=== PATIENT | female | born 1975 | race Caucasian/White ===

== ENCOUNTER 2022-09-14 15:00 | Inpatient (IN) | payer OTHER ==
[~2022-09-14] VITALS: Ht 152.4 cm; Wt 104.6 kg
[2022-09-14] MEDS ORDERED: Prinivil10 MG PO (16:13)
[2022-09-14] MEDS ORDERED: Acetaminophen650 M1 PO (16:14)
[2022-09-14 17:14] LABS: BASOPHILS ABSOLUTE AUTO 0.15 K/mm3 (0.00-0.23); BASOPHILS PERCENT AUTO 1 % (0-2); EOSINOPHILS PERCENT AUTO 2 % (0-6); Hematocrit 29.1 % (33.0-51.0); Hemoglobin 9.1 g/dL (11.5-16.0); IMMATURE GRAN ABSOLUTE AUTO 0.05 K/mm3 (0.00-0.10); IMMATURE GRAN PERCENT AUTO 0 % (0-1); LYMPHOCYTES ABSOLUTE AUTO 3.03 K/mm3 (0.84-5.20); LYMPHOCYTES PERCENT AUTO 24 % (21-46); MONOCYTES ABSOLUTE AUTO 0.48 K/mm3 (0.16-1.47); MONOCYTES PERCENT AUTO 4 % (4-13); Mean Corpuscular HGB 27.7 pg (26.0-34.0); Mean Corpuscular HGB Conc 31.3 g/dL (31.5-36.5); Mean Corpuscular Volume 89 fL (80-100); Mean Platelet Volume 11.1 fL (9.1-12.4); NEUTROPHILS ABSOLUTE AUTO 8.48 K/mm3 (1.96-9.15); NEUTROPHILS PERCENT AUTO 68 % (41-73); Platelet Count 278 K/mm3 (150-400); RDW Coefficient Variation 14.1 % (11.7-14.2); RDW Standard Deviation 45.6 fL (35.1-46.3); Red Blood Cell Count 3.28 M/mm3 (3.80-5.20); White Blood Cell Count 12.49 K/mm3 (4.00-11.30)
[2022-09-14 17:29] LABS: Magnesium, Blood 1.8 mg/dL (1.6-2.4)
[2022-09-14 17:30] LABS: Albumin, Blood 3.1 g/dL (3.4-5.0); Albumin/Globulin Ratio 0.8 (0.8-1.8); Bilirubin, Total 0.1 mg/dL (0.1-1.0); Bun/Creatinine Ratio 16.7 (12.0-20.0); Calcium, Blood 8.5 mg/dL (8.5-10.1); Creatinine, Blood 4.13 mg/dL (0.40-1.00); Globulin, Blood 3.7 g/dL (2.2-4.0); Phosphorus, Blood 5.2 mg/dL (2.5-4.9); Potassium, Blood 5.8 mmol/L (3.5-5.5); Total Protein, Blood 6.8 g/dL (6.4-8.2)
[2022-09-15 05:15] LABS: BASOPHILS ABSOLUTE AUTO 0.14 K/mm3 (0.00-0.23); BASOPHILS PERCENT AUTO 1 % (0-2); EOSINOPHILS ABSOLUTE AUTO 0.52 K/mm3 (0.00-0.68); EOSINOPHILS PERCENT AUTO 4 % (0-6); Hematocrit 26.6 % (33.0-51.0); Hemoglobin 8.6 g/dL (11.5-16.0); IMMATURE GRAN ABSOLUTE AUTO 0.04 K/mm3 (0.00-0.10); IMMATURE GRAN PERCENT AUTO 0 % (0-1); LYMPHOCYTES ABSOLUTE AUTO 4.25 K/mm3 (0.84-5.20); LYMPHOCYTES PERCENT AUTO 33 % (21-46); MONOCYTES PERCENT AUTO 6 % (4-13); Mean Corpuscular HGB 28.3 pg (26.0-34.0); Mean Corpuscular HGB Conc 32.3 g/dL (31.5-36.5); Mean Corpuscular Volume 88 fL (80-100); Mean Platelet Volume 11.2 fL (9.1-12.4); NEUTROPHILS ABSOLUTE AUTO 7.13 K/mm3 (1.96-9.15); NEUTROPHILS PERCENT AUTO 56 % (41-73); Platelet Count 234 K/mm3 (150-400); RDW Standard Deviation 44.9 fL (35.1-46.3); Red Blood Cell Count 3.04 M/mm3 (3.80-5.20); White Blood Cell Count 12.78 K/mm3 (4.00-11.30)
[2022-09-15 05:39] LABS: Albumin, Blood 2.8 g/dL (3.4-5.0); Anion Gap 8 mmol/L (6-16); Blood Urea Nitrogen 78 mg/dL (8-24); Bun/Creatinine Ratio 19.5 (12.0-20.0); CO2, Blood 15 mmol/L (21-32); Calcium, Blood 8.2 mg/dL (8.5-10.1); Chloride, Blood 117 mmol/L (98-108); Glomerular Filtration Rate 13 (60-); Glucose, Blood 81 mg/dL (70-99); Magnesium, Blood 1.8 mg/dL (1.6-2.4); Phosphorus, Blood 5.8 mg/dL (2.5-4.9); Potassium, Blood 5.5 mmol/L (3.5-5.5); Sodium, Blood 140 mmol/L (136-145)
[2022-09-15 13:55] LABS: Albumin, Blood 2.8 g/dL (3.4-5.0); Anion Gap 8 mmol/L (6-16); Blood Urea Nitrogen 74 mg/dL (8-24); Bun/Creatinine Ratio 19.6 (12.0-20.0); CO2, Blood 18 mmol/L (21-32); Calcium, Blood 8.4 mg/dL (8.5-10.1); Chloride, Blood 113 mmol/L (98-108); Creatinine, Blood 3.77 mg/dL (0.40-1.00); Glomerular Filtration Rate 14 (60-); Glucose, Blood 140 mg/dL (70-99); Phosphorus, Blood 5.3 mg/dL (2.5-4.9); Potassium, Blood 4.7 mmol/L (3.5-5.5); Sodium, Blood 139 mmol/L (136-145)
[2022-09-16 05:57] LABS: BASOPHILS ABSOLUTE AUTO 0.09 K/mm3 (0.00-0.23); BASOPHILS PERCENT AUTO 1 % (0-2); EOSINOPHILS ABSOLUTE AUTO 0.43 K/mm3 (0.00-0.68); EOSINOPHILS PERCENT AUTO 4 % (0-6); Hematocrit 26.3 % (33.0-51.0); Hemoglobin 8.6 g/dL (11.5-16.0); IMMATURE GRAN ABSOLUTE AUTO 0.04 K/mm3 (0.00-0.10); IMMATURE GRAN PERCENT AUTO 0 % (0-1); LYMPHOCYTES ABSOLUTE AUTO 3.36 K/mm3 (0.84-5.20); LYMPHOCYTES PERCENT AUTO 32 % (21-46); MONOCYTES ABSOLUTE AUTO 0.55 K/mm3 (0.16-1.47); MONOCYTES PERCENT AUTO 5 % (4-13); Mean Corpuscular HGB 28.2 pg (26.0-34.0); Mean Corpuscular HGB Conc 32.7 g/dL (31.5-36.5); Mean Corpuscular Volume 86 fL (80-100); Mean Platelet Volume 11.6 fL (9.1-12.4); NEUTROPHILS ABSOLUTE AUTO 5.98 K/mm3 (1.96-9.15); NEUTROPHILS PERCENT AUTO 57 % (41-73); Platelet Count 227 K/mm3 (150-400); RDW Coefficient Variation 13.6 % (11.7-14.2); Red Blood Cell Count 3.05 M/mm3 (3.80-5.20); White Blood Cell Count 10.45 K/mm3 (4.00-11.30)
[2022-09-16 06:20] LABS: Albumin, Blood 2.8 g/dL (3.4-5.0); Anion Gap 7 mmol/L (6-16); Blood Urea Nitrogen 77 mg/dL (8-24); Bun/Creatinine Ratio 21.4 (12.0-20.0); CO2, Blood 17 mmol/L (21-32); Calcium, Blood 8.1 mg/dL (8.5-10.1); Chloride, Blood 113 mmol/L (98-108); Creatinine, Blood 3.59 mg/dL (0.40-1.00); Glomerular Filtration Rate 15 (60-); Glucose, Blood 92 mg/dL (70-99); Phosphorus, Blood 5.8 mg/dL (2.5-4.9); Potassium, Blood 4.8 mmol/L (3.5-5.5); Sodium, Blood 137 mmol/L (136-145)
[2022-09-17 05:37] LABS: Albumin, Blood 2.8 g/dL (3.4-5.0); Anion Gap 10 mmol/L (6-16); Blood Urea Nitrogen 72 mg/dL (8-24); Bun/Creatinine Ratio 20.5 (12.0-20.0); CO2, Blood 18 mmol/L (21-32); Calcium, Blood 8.1 mg/dL (8.5-10.1); Chloride, Blood 108 mmol/L (98-108); Creatinine, Blood 3.52 mg/dL (0.40-1.00); Glomerular Filtration Rate 15 (60-); Glucose, Blood 88 mg/dL (70-99); Phosphorus, Blood 5.2 mg/dL (2.5-4.9); Potassium, Blood 4.6 mmol/L (3.5-5.5); Sodium, Blood 136 mmol/L (136-145)
[2022-09-17] MEDS ORDERED: ADALAT CC90 M1 PO (08:57)
[2022-09-17] MEDS ORDERED: LEVSOD75 PO (08:59)
[2022-09-17] MEDS ORDERED: BANATROL PLUS PO (09:01)
== END 2022-09-17 14:56 | disposition home or self-care (01) | DRG 684 ==
LOC: MEDS 15:00
PROVIDERS: ADMIT Family Medicine
DX: N17.9 Acute kidney failure, unspecified (principal); D72.829 Elevated white blood cell count, unspecified; R94.6 Abnormal results of thyroid function studies; E66.9 Obesity, unspecified; M54.9 Dorsalgia, unspecified; G89.29 Other chronic pain; E03.9 Hypothyroidism, unspecified; K58.0 Irritable bowel syndrome with diarrhea; D50.9 Iron deficiency anemia, unspecified; I12.9 Hypertensive chronic kidney disease with stage 1 through stage 4 chronic kidney disease, or unspecified chronic kidney disease; N18.9 Chronic kidney disease, unspecified; D63.1 Anemia in chronic kidney disease; Z88.8 Allergy status to other drugs, medicaments and biological substances; Z79.899 Other long term (current) drug therapy; Z79.811 Long term (current) use of aromatase inhibitors
CPT/HCPCS: 36415; 76770; 80053; 80069; 83735; 83880; 84100; 85025; A9270; J0360; J1644; J2916; J3475; J7050

== ENCOUNTER → 2022-09-18 | Outpatient (CLI) | payer OTHER ==
[~2022-09-18] MED LIST: ADALAT CC90 M1 PO; Acetaminophen650 M1 PO; BANATROL PLUS PO; LEVSOD75 PO; Prinivil10 MG PO
== END | disposition home or self-care (01) ==
LOC: LAB SHORT 16:00 → LAB 16:00
DX: N39.0 Urinary tract infection, site not specified (principal)
CPT/HCPCS: 87086

== ENCOUNTER → 2022-09-22 | Outpatient (CLI) | payer OTHER ==
[2022-09-23 18:10] LABS: HPV 16 Negative (Negative); HPV 18 Negative (Negative); HPV OTHER HR TYPES Negative (Negative)
== END | disposition home or self-care (01) ==
LOC: LAB 09:59 → LAB SHORT 09:59
PROVIDERS: Advanced Practice Midwife
DX: Z01.419 Encounter for gynecological examination (general) (routine) without abnormal findings (principal)
CPT/HCPCS: 87624; G0123

== ENCOUNTER 2022-09-23 13:55 | Inpatient (IN) | payer OTHER ==
[~2022-09-23] VITALS: Ht 152.4 cm; Wt 113.3 kg
--- NOTE | 2022-09-23 23:12 | NUR ---
ADMISSION: PT ARRIVED TO U 10 @2146. ABLE TO AMBULATE FROM [facility] TO HOSPITAL BED IND. ALERT AND ORIENTED X4, ABLE TO FOLLOW COMMANDS AND MAKE NEEDS KNOWN. BP STABLE, HR SR 90'S, NO COMPLAINTS OF CP/PRESSURE AT THIS TIME. SATING >95% ON RA, RESPIRATIONS EVEN AND UNLABORED, AFEBRILE. PULSE STRONG AND EQUAL. POTASSIUM OF 6.0. CALL PLACED TO , NEW ORDERS RECIEVED. PT ORIENTED TO ROOM AND CALL LIGHT SYSTEM, BED IN LOW, CALL LIGHT IN REACH. WILL CONTINUE TO MONITOR.
--- NOTE | 2022-09-24 04:01 | NUR ---
SHIFT SUMMARY: PT REMAINS ALERT AND ORIENTED X4, BP AND HR STABLE, AFEBRILE, SATTING >95% ON RA, RESPIRATIONS EVEN AND UNLABORED. PT IND TO BATHROOM, NO BM THIS SHIFT. SODIUM BICARB GTT IN L AC. NO ACUTE CHANGES OVERNIGHT. BED IN LOW, CALL LIGHT IN REACH, WILL REPORT TO ONCOMING RN.
[2022-09-24 04:32] LABS: Hematocrit 24.7 % (33.0-51.0)
[2022-09-24 05:00] LABS: Albumin, Blood 2.7 g/dL (3.4-5.0); Anion Gap 10 mmol/L (6-16); Blood Urea Nitrogen 83 mg/dL (8-24); Bun/Creatinine Ratio 23.4 (12.0-20.0); CO2, Blood 21 mmol/L (21-32); Calcium, Blood 8.8 mg/dL (8.5-10.1); Chloride, Blood 113 mmol/L (98-108); Creatinine, Blood 3.54 mg/dL (0.40-1.00); Glomerular Filtration Rate 15 (60-); Glucose, Blood 106 mg/dL (70-99); Magnesium, Blood 1.7 mg/dL (1.6-2.4); Phosphorus, Blood 6.4 mg/dL (2.5-4.9); Potassium, Blood 4.9 mmol/L (3.5-5.5); Sodium, Blood 144 mmol/L (136-145)
--- NOTE | 2022-09-24 07:57 | NUR ---
DR COREA CALLED ABOUT ORDERING PT'S HOME MEDICATIONS
--- NOTE | 2022-09-24 17:27 | NUR ---
PT A/O X4. RESTING WELL IN BED, INDEPENDANT TO BATHROOM. VSS. BICARB INFUSING AT 50ML/HR PER V/O FROM DR AVENDANO. NÉSTOR. PT DENIES SOB AND CP. ANSWERING QUESTIONS APPRORPRIATELY IN FULL SENTENCES. WILL CONTINUE TO OBESERVE FOR CHANGES OR NEEDS. NO FURTHER CHANGES TO DISCUSS FOR HTIS SHIFT. HOME MEDIATIONS ARE ORDERED
--- NOTE | 2022-09-25 04:10 | NUR ---
SHIFT SUMMARY: PT REMAINS ALERT AND ORIENTED X4, ABLE TO FOLLOW COMMANDS AND MAKE NEEDS KNOWN. BP STABLE, HR SR 80'S, AFEBRILE, ON RA SATURATIONS >95%, RESPIRATIONS EVEN AND UNLABORED. PULSES EQUAL AND STRONG THROUGHOUT. BICARB INFUSING @50ML/HR. PT IND IN ROOM, ABLE TO AMBULATE TO AND FROM BATHROOM. PT COMPLAINED OF HEADACHE AT START OF SHIFT, MEDICATED WITH TYLENOL PER EMAR. PT AMBULATED AROUND UNIT, VITAL SIGNS REMAINED STABLE. PT ABLE TO SLEEP ON AND OFF. CALLS APPROPRIATELY. BED IN LOW, CALL LIGHT IN REACH, WILL REPORT TO ONCOMING RN.
[2022-09-25 04:11] LABS: Albumin, Blood 2.8 g/dL (3.4-5.0); Anion Gap 7 mmol/L (6-16); Blood Urea Nitrogen 71 mg/dL (8-24); Bun/Creatinine Ratio 19.5 (12.0-20.0); CO2, Blood 25 mmol/L (21-32); Chloride, Blood 108 mmol/L (98-108); Creatinine, Blood 3.64 mg/dL (0.40-1.00); Glomerular Filtration Rate 15 (60-); Glucose, Blood 89 mg/dL (70-99); Magnesium, Blood 1.6 mg/dL (1.6-2.4); Phosphorus, Blood 5.4 mg/dL (2.5-4.9); Sodium, Blood 140 mmol/L (136-145)
--- NOTE | 2022-09-25 17:26 | NUR ---
PT HAS BEEN INDEPENDANT IN ROOM T/O THE DAY. PT HAD SHOWER THIS AFTERNOON. VSS. NADN. NS INFUSING AT 75ML/HR. DENIES SOB AND CP. PLAN IS TO POSSIBLY BEGIN DIALYSIS PRIOR TO DISCHARGE HOME, PT IS AWARE OF THIS. FAMILY HAS BEEN IN TO SEE PT DURING THE DAY. NO FURHTER CHANGES TO DISCUSS
[2022-09-26 04:12] LABS: Hematocrit 24.7 % (33.0-51.0); Hemoglobin 7.9 g/dL (11.5-16.0)
[2022-09-26 04:29] LABS: Albumin, Blood 2.8 g/dL (3.4-5.0); Anion Gap 6 mmol/L (6-16); Blood Urea Nitrogen 67 mg/dL (8-24); Bun/Creatinine Ratio 18.7 (12.0-20.0); CO2, Blood 24 mmol/L (21-32); Calcium, Blood 8.1 mg/dL (8.5-10.1); Chloride, Blood 109 mmol/L (98-108); Creatinine, Blood 3.59 mg/dL (0.40-1.00); Glomerular Filtration Rate 15 (60-); Glucose, Blood 118 mg/dL (70-99); Magnesium, Blood 1.6 mg/dL (1.6-2.4); Phosphorus, Blood 5.5 mg/dL (2.5-4.9); Potassium, Blood 5.1 mmol/L (3.5-5.5); Sodium, Blood 139 mmol/L (136-145)
--- NOTE | 2022-09-26 05:10 | NUR ---
SHIFT SUMMARY NO ACUTE CHANGES TO REPORT OVERNIGHT, PLAN OF CARE REMAINS THE SAME. SHE REMAINS INDEPENDENT IN THE ROOM. DENIES PAIN AND HAS NO COMPLAINTS. IVF INFUSING, VITALS STABLE. PT A/OX4, CALL LIGHT WITHIN REACH.
--- NOTE | 2022-09-26 17:47 | NUR ---
PT REMAINS A/O X4. INDEPENDANT IN THE ROOM TO BATHROOM. VSS. DENIES CP ANS SOB. VSS. PLAN TO OBSERVE OVER NIGHT AND DR AVENDANO REASSESS IN THE AM. NS CONTINUES TO INFUSE AT 75ML/HR. THERE ARE NO ADDITIONAL CHANGES DURING THIS SHIFT TO NOTE
[2022-09-27 04:42] LABS: Hematocrit 22.1 % (33.0-51.0); Hemoglobin 7.3 g/dL (11.5-16.0)
[2022-09-27 04:57] LABS: Albumin, Blood 2.6 g/dL (3.4-5.0); Anion Gap 6 mmol/L (6-16); Blood Urea Nitrogen 58 mg/dL (8-24); Bun/Creatinine Ratio 16.2 (12.0-20.0); CO2, Blood 22 mmol/L (21-32); Chloride, Blood 111 mmol/L (98-108); Creatinine, Blood 3.58 mg/dL (0.40-1.00); Glomerular Filtration Rate 15 (60-); Glucose, Blood 129 mg/dL (70-99); Magnesium, Blood 1.5 mg/dL (1.6-2.4); Phosphorus, Blood 5.2 mg/dL (2.5-4.9); Sodium, Blood 139 mmol/L (136-145)
--- NOTE | 2022-09-27 06:32 | NUR ---
SHIFT SUMMARY: A&OX4. DENIES ANY SOB OR CHEST PAIN. O2 SATS > 92% ON RA. HR SR/ST IN 90-100'S. FLUIDS INFUSING ORDERED. PT UP INDEPENDTLY IN ROOM. VOIDING LARGE AMOUNST OF CLEAR, YELLOW URINE. NO ACUTE CHANGES THROUGHOUT SHIFT.
--- NOTE | 2022-09-27 19:01 | NUR ---
Shift Summary Pt alert, oriented X4; calm and cooprerative with care. Pt resting in bed, up ind in room. Pt reports dental pain, medicated X1 with tylenol. Pt denies chest pain, sob, nausea, dizziness and numb/tingling t/o shift. Tele sinus 80's, bp stable. Spo2 >90% on ra t/o shift, breathing even and unlabored. Other vss. no other acute changes noted. Will continue to monitor until report given to oncoming rn.
--- NOTE | 2022-09-28 05:02 | NUR ---
SHIFT SUMMARY: NO ACUTE CHANGES TO PT CONDITION DURING THIS SHIFT.
[2022-09-28 05:07] LABS: Hematocrit 23.9 % (33.0-51.0); Hemoglobin 7.7 g/dL (11.5-16.0)
[2022-09-28 05:24] LABS: Albumin, Blood 2.8 g/dL (3.4-5.0); Anion Gap 8 mmol/L (6-16); Blood Urea Nitrogen 54 mg/dL (8-24); Bun/Creatinine Ratio 14.7 (12.0-20.0); CO2, Blood 19 mmol/L (21-32); Calcium, Blood 8.5 mg/dL (8.5-10.1); Chloride, Blood 113 mmol/L (98-108); Creatinine, Blood 3.67 mg/dL (0.40-1.00); Glomerular Filtration Rate 15 (60-); Glucose, Blood 83 mg/dL (70-99); Magnesium, Blood 1.8 mg/dL (1.6-2.4); Phosphorus, Blood 5.8 mg/dL (2.5-4.9); Potassium, Blood 5.6 mmol/L (3.5-5.5); Sodium, Blood 140 mmol/L (136-145)
--- NOTE | 2022-09-28 06:00 | NUR ---
DR. AVENDANO INFORMED OF PT'S POTASSIUM THIS A.MAdriane RECEIVED ORDER FOR [facility].
--- NOTE | 2022-09-28 17:52 | NUR ---
SHIFT SUMMARY: PT CONTINUES A&Ox4, COOPERATIVE W/CARE, USES CALL LIGHT APPROPRIATELY. PT DENIES SOB, CP T/OUT DAY. O2 SATS >92% ON RA. SR/ST ON MONITOR, RATE 90s-LOW 100s. PT MEDICATED x1 FOR C/O ORAL PAIN. PT IND IN ROOM, SHOWERS TODAY W/OUT INCIDENT. PT REPORTS FREQUENT LOOSE STOOLS, BENEFIT OF BANANA FLAKES EXPLAINED, PT AGREEABLE TO ADMINISTRATION THIS AM, REPORTS IMPROVEMENT T/OUT SHIFT. SODIUM BICARB INFUSION INITIATED PER ORDERS. AT THIS TIME, PT RESTING QUIETLY IN ROOM WITH CALL LIGHT IN REACH. WILL CONTINUE TO MONITOR AND TREAT ACCORDINGLY UNTIL CHANGE OF SHIFT.
--- NOTE | 2022-09-28 22:21 | NUR ---
ASSUMED PT CARE FORM MAO REYNA ON . PT IS A&OX4. PT ON RA WITH SATS AT 99%. DENIES ANY SOB. HR IS SR/ST IN THE 90-100'S. AMBULATIGN IN ROOM WITHOUT DIFFICUTLY. VOIDING CLEAR, YELLOW URINE IN HAT. FLUIDS IN FUSING PER ORDERS. CALL LIGHTIN REACH.
--- NOTE | 2022-09-28 22:36 | NUR ---
REPORT CALL TO RN FOR ROOM 340.
--- NOTE | 2022-09-28 22:59 | NUR ---
REPORT CALLED TO RN ON MEDICAL FLOOR DIANA ALCANTAR.
--- NOTE | 2022-09-29 04:47 | NUR ---
SUMMARY: PATIENT TRANSFERRED FROM PCU 10 THIS EVENING. NO ACUTE EVENTS. BICARD DRIP RUNNING. PATIENT AOX4. INDEPENDENT IN ROOM. MIRNA APPLIED TO SOME REDNESS IN HER GROIN FOLDS. 2 NURSE SKIN CHECK COMPLETE WITH MARIBELL ORTIZ.
[2022-09-29 07:19] LABS: Hematocrit 22.2 % (33.0-51.0); Hemoglobin 7.2 g/dL (11.5-16.0)
[2022-09-29 07:57] LABS: Albumin, Blood 2.7 g/dL (3.4-5.0); Anion Gap 6 mmol/L (6-16); Blood Urea Nitrogen 53 mg/dL (8-24); CO2, Blood 22 mmol/L (21-32); Calcium, Blood 8.5 mg/dL (8.5-10.1); Chloride, Blood 111 mmol/L (98-108); Creatinine, Blood 3.79 mg/dL (0.40-1.00); Glomerular Filtration Rate 14 (60-); Glucose, Blood 86 mg/dL (70-99); Magnesium, Blood 1.7 mg/dL (1.6-2.4); Phosphorus, Blood 5.7 mg/dL (2.5-4.9); Potassium, Blood 5.1 mmol/L (3.5-5.5); Sodium, Blood 139 mmol/L (136-145)
[2022-09-29] MEDS ORDERED: BUME2 PO (11:27)
[2022-09-29] MEDS ORDERED: LOKELMA10 GM PO (11:29)
[2022-09-29] MEDS ORDERED: SODBIC650 PO (11:29)
--- NOTE | 2022-09-29 13:08 | NUR ---
DISCHARGE SUMMARY DISCHARGE, MEDICATION, AND FOLLOWUP INSTRUCTIONS GIVEN TO PT. PT VOICED COMPLETE UNDERSTANDING AND HAS NO QUESTIONS AT THIS TIME. TELE MONITOR REMOOVED. IV IN PLACE, PT STATES RIDE MAY NOT ARRIVE FOR A FEW HOURS. WILL REMOVE PRIOR TO D/C.
== END 2022-09-29 13:36 | disposition home or self-care (01) | DRG 641 ==
LOC: ER 13:55 → PCU 13:56 → ERHOLD 13:56 → PCU 21:46 → MEDS 09-28 22:50
PROVIDERS: Internal Medicine Nephrology; ADMIT Internal Medicine
DX: E87.5 Hyperkalemia (principal); I12.0 Hypertensive chronic kidney disease with stage 5 chronic kidney disease or end stage renal disease; N17.9 Acute kidney failure, unspecified; N18.5 Chronic kidney disease, stage 5; D63.1 Anemia in chronic kidney disease; E11.22 Type 2 diabetes mellitus with diabetic chronic kidney disease; E03.9 Hypothyroidism, unspecified; M10.9 Gout, unspecified; F17.210 Nicotine dependence, cigarettes, uncomplicated; E86.9 Volume depletion, unspecified; E87.20 Acidosis, unspecified; E88.09 Other disorders of plasma-protein metabolism, not elsewhere classified; E83.39 Other disorders of phosphorus metabolism; D50.9 Iron deficiency anemia, unspecified; E87.70 Fluid overload, unspecified; Z88.8 Allergy status to other drugs, medicaments and biological substances; Z79.811 Long term (current) use of aromatase inhibitors; Z79.899 Other long term (current) drug therapy
CPT/HCPCS: 36415; 80069; 83735; 84132; 85014; 85018; 93005; 93010; 96365; 96366; 96367; 96372; 99284-25; A9270; G0378; J0610; J0881; J1644; J7030; J7070

== ENCOUNTER → 2022-10-05 | Outpatient (CLI) | payer OTHER ==
[~2022-10-05] MED LIST changes: +BUME2 PO; +LOKELMA10 GM PO; +SODBIC650 PO
[2022-10-05 14:10] LABS: Creatinine Urine 25.8 mg/dL (27.00-270.00); Protein, Urine Quantitative 177.8 mg/dL (0.0-11.9)
== END | disposition home or self-care (01) ==
LOC: LAB 06:45 → LAB SHORT 06:45
PROVIDERS: Internal Medicine Nephrology
DX: N18.5 Chronic kidney disease, stage 5 (principal); D63.1 Anemia in chronic kidney disease; N25.81 Secondary hyperparathyroidism of renal origin; E55.9 Vitamin D deficiency, unspecified; E78.00 Pure hypercholesterolemia, unspecified; R76.9 Abnormal immunological finding in serum, unspecified; R94.5 Abnormal results of liver function studies; R94.6 Abnormal results of thyroid function studies
CPT/HCPCS: 81050; 82043; 82108; 82570; 84156

== ENCOUNTER → 2022-10-13 | Outpatient (CLI) | payer OTHER ==
[~2022-10-13] MED LIST changes: +HYDR1TAB94 PO; +METO50ER PO; +OXAYDO5 M2 PO; +XARELTO20 MG PO; +[UNRECOGNIZED DRUG - OTHER]
== END ==
LOC: LAB 11:45 → LAB SHORT 11:45
DX: Z11.1 Encounter for screening for respiratory tuberculosis (principal)
CPT/HCPCS: 87015; 87116; 87206

== ENCOUNTER 2022-10-14 07:06 | Day surgery (SDC) | payer OTHER ==
[~2022-10-14 07:06] MED LIST changes: -HYDR1TAB94 PO; -OXAYDO5 M2 PO; -XARELTO20 MG PO; -[UNRECOGNIZED DRUG - OTHER]
[2022-10-14] MEDS ORDERED: [UNRECOGNIZED DRUG - OTHER] (07:29)
--- NOTE | 2022-10-14 09:42 | NUR ---
PT VERBALIZES UNDERSTANDING WRITTEN AND VERBAL INSTRUCTIONS. DENIES QUESITONS OR CONCERNS. IV DC'D. CATH INTACT. PRESSURE DSG APPLIED. NO BLEEDING NOTED. VSS. DR AVENDANO AND [facility] TO GET AHOLD OF PATIENT TO CONTINUE CARE.
== END 2022-10-14 10:00 | disposition home or self-care (01) ==
LOC: MHTC 07:06
DX: I12.0 Hypertensive chronic kidney disease with stage 5 chronic kidney disease or end stage renal disease (principal); N18.6 End stage renal disease; E11.22 Type 2 diabetes mellitus with diabetic chronic kidney disease; M10.9 Gout, unspecified; F17.200 Nicotine dependence, unspecified, uncomplicated
CPT/HCPCS: 76937; 99152; 99153; C1750; C1769; J1644; J2250; J3010; J7040

== ENCOUNTER 2022-11-01 03:32 | Emergency (ER) | payer OTHER ==
[~2022-11-01] VITALS: Ht 152.4 cm; Wt 105.2 kg
[~2022-11-01 03:32] MED LIST changes: +[UNRECOGNIZED DRUG - OTHER]
[2022-11-01 04:05] LABS: BASOPHILS ABSOLUTE AUTO 0.11 K/mm3 (0.00-0.23); BASOPHILS PERCENT AUTO 1 % (0-2); EOSINOPHILS ABSOLUTE AUTO 0.54 K/mm3 (0.00-0.68); EOSINOPHILS PERCENT AUTO 5 % (0-6); Hematocrit 25.3 % (33.0-51.0); Hemoglobin 8.2 g/dL (11.5-16.0); IMMATURE GRAN ABSOLUTE AUTO 0.08 K/mm3 (0.00-0.10); IMMATURE GRAN PERCENT AUTO 1 % (0-1); LYMPHOCYTES ABSOLUTE AUTO 2.58 K/mm3 (0.84-5.20); LYMPHOCYTES PERCENT AUTO 23 % (21-46); MONOCYTES ABSOLUTE AUTO 0.94 K/mm3 (0.16-1.47); MONOCYTES PERCENT AUTO 8 % (4-13); Mean Corpuscular HGB 28.1 pg (26.0-34.0); Mean Corpuscular HGB Conc 32.4 g/dL (31.5-36.5); Mean Corpuscular Volume 87 fL (80-100); Mean Platelet Volume 11.5 fL (9.1-12.4); NEUTROPHILS ABSOLUTE AUTO 7.18 K/mm3 (1.96-9.15); NEUTROPHILS PERCENT AUTO 63 % (41-73); Platelet Count 242 K/mm3 (150-400); RDW Coefficient Variation 12.7 % (11.7-14.2); Red Blood Cell Count 2.92 M/mm3 (3.80-5.20); White Blood Cell Count 11.43 K/mm3 (4.00-11.30)
[2022-11-01 04:23] LABS: Albumin, Blood 2.9 g/dL (3.4-5.0); Albumin/Globulin Ratio 0.8 (0.8-1.8); Bilirubin, Total 0.2 mg/dL (0.1-1.0); Bun/Creatinine Ratio 8.1 (12.0-20.0); Calcium, Blood 8.5 mg/dL (8.5-10.1); Creatinine, Blood 5.65 mg/dL (0.40-1.00); Globulin, Blood 3.5 g/dL (2.2-4.0); Potassium, Blood 3.5 mmol/L (3.5-5.5); Total Protein, Blood 6.4 g/dL (6.4-8.2)
[2022-11-01 04:29] LABS: International Normalized Ratio 1.09; Prothrombin Time Results 11.4 Sec (9.7-11.5)
[2022-11-01] MEDS ORDERED: OXAYDO5 M2 PO (09:45)
== END 2022-11-01 10:10 | disposition home or self-care (01) ==
LOC: ER 03:32
PROVIDERS: Student in an Organized Health Care Education/Training Program
DX: I82.621 Acute embolism and thrombosis of deep veins of right upper extremity (principal); E11.9 Type 2 diabetes mellitus without complications; I10 Essential (primary) hypertension; E03.9 Hypothyroidism, unspecified; F17.200 Nicotine dependence, unspecified, uncomplicated; Z88.8 Allergy status to other drugs, medicaments and biological substances; Z79.890 Hormone replacement therapy; Z79.899 Other long term (current) drug therapy
CPT/HCPCS: 71045; 71260; 80053; 85025; 85610; 85730; A9270; J1650; Q9967

== ENCOUNTER 2022-11-04 06:59 | Day surgery (SDC) | payer OTHER ==
[~2022-11-04] VITALS: Ht 152.4 cm; Wt 106.6 kg
[~2022-11-04 06:59] MED LIST changes: +OXAYDO5 M2 PO
[2022-11-04] MEDS ORDERED: HYDR1TAB94 PO (07:25)
--- NOTE | 2022-11-04 11:35 | NUR ---
1215 PATIENT RETURNED FROM THE CATHLAB WITH FLOWSTASIS TO THE RIGHT BRACHIAL VEIN AND THE RIGHT FEMORAL VEIN. MANUAL PRESSURE BEING HELD TO THE RIGHT FEMORAL VEIN BY MINOR PARRA AT THE TIME OF ARRIVAL. SBAR RECEIVED FROM MARIBELL ATWOOD AT THE BEDSIDE. PATIENT PLACED ON THE MONITOR. ROOM AIR SAT 98% AND WILL CONTINUE TO MONITOR. COMPLAIN OF RIGHT ARM PAIN. ARM ASSESSED AND PLACED UP ON A PILLOW AND PAIN SEEMD TO BE MORE TOLERABLE. CONTINUED TO MONITOR. CALL LIGHT IN REACH. HOB FLAT, BED IN REVERSE TRENDELENBERG.
[2022-11-04] MEDS ORDERED: XARELTO20 MG PO (11:39)
--- NOTE | 2022-11-04 11:47 | NUR ---
FAXED XARELTO SCRIPT TO [facility] DIRECTED BY THE PATEINT.
--- NOTE | 2022-11-04 13:25 | NUR ---
1300 FLOWSTASIS REMOVED FROM THE RIGHT BRACHIAL VEIN AND MANUAL PRESSURE HELD FOR 15 MINUTES WITH A ASHER PAD. BLEEDING STOPPED AND DRESSING APLIED. THEN RIGHT GROIN FLOWSTASIS REMOVED AND MANUAL PRESSURE HELD FOR 10 MINUTES AND DRESSING APPLIED. HEMOSTASIS TO BOTH SITES.
--- NOTE | 2022-11-04 13:39 | NUR ---
5572 FIFTEEN MINUTES SPENT ON THE PHONE WITH [facility] PHARMACIST REGARDING XARELTO SCRIPT. PATIENT UNABLE TO AFFORD EXPENSIVE SCRIPT. TRYING TO ENSURE IF INSURANCE IS GOING TO COVER HER SCRIPT.
--- NOTE | 2022-11-04 13:55 | NUR ---
PATIENT UP OOB AND OFF MONITOR. PIV REMOVED AND CATH TIP INTACT. PRESSURE DRESING APPLIED. PATIENT DRESSING SELF. GATHERED ALL BELONINGS AND WILL CALL RIDE IN A FEW MINUTES. RIGHT GROIN SITE AND RIGHT BRACHIAL SITES CDI. NO BLEEDING, NO HEMATOMA NOTED.
--- NOTE | 2022-11-04 14:31 | NUR ---
1402 PATIENT CALLED RN INTO THE RESTROOM AND BLEEDING NOTED FROM ASHKAN RIGHT GROIN VENOUS SITE. PATIENT QUICKLY ESCORTED BACK TO THE BED. CLOTHES OFF AND MANUAL PRESSURE HELD TO THE RIGHT GROIN SITE. OLD DRESSSING REMOVED, SOAKED THROUGH THE SITE AND AFTER 15 MINUTES NEW DRESSING APPLIED. BLANKETS AND HEATER APPLIED TO THE PATIENT.
--- NOTE | 2022-11-04 15:00 | NUR ---
1500 NO BLEEDING NOTED FROM THE RIGHT GROIN. ATTEMPTED TO GET OOB AGAIN AND DRESS. PLANN TO DISCHARGE STRAIGHT TO DIALYSIS FOR TREATMENT.
--- NOTE | 2022-11-04 15:10 | NUR ---
PHARMACY CALLED BACK AND WILL COVER THE XARELTO WITHOUT A COPAY. 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
--- NOTE | 2022-11-04 15:32 | NUR ---
REVIEWED DISCAHRGE INSTRUCTIONS WITH THE PATIENT AND SHE VERBALIZED ALL INSTRUCTIONS WITH THE RN. SIGNED COPIES AND HAS ORIGINAL INSTRUCTIONS WITH HER. SHE IS DISCHARGING WITH SMALL ARMS REPAIRER TO [facility] FOR DIALYSIS TODAY.
== END 2022-11-04 16:00 | disposition home or self-care (01) ==
LOC: MHTC 06:59
DX: T82.9XXA Unspecified complication of cardiac and vascular prosthetic device, implant and graft, initial encounter (principal); D64.9 Anemia, unspecified; E11.22 Type 2 diabetes mellitus with diabetic chronic kidney disease; I12.0 Hypertensive chronic kidney disease with stage 5 chronic kidney disease or end stage renal disease; N18.6 End stage renal disease; M54.2 Cervicalgia; X58.XXXA Exposure to other specified factors, initial encounter
CPT/HCPCS: 36904; 36907; 76937; 99152; 99153; C1725; C1757; C1769; C1887; C1894; J1644; J2250; J3010; J7030; J7040; Q9967

== ENCOUNTER → 2022-11-12 | Outpatient (CLI) | payer OTHER ==
[~2022-11-12] MED LIST changes: +HYDR1TAB94 PO; +XARELTO20 MG PO
[2022-11-12 13:07] LABS: Protein, Urine Quantitative 625.7 mg/dL (0.0-11.9)
== END | disposition home or self-care (01) ==
LOC: LAB 07:30 → LAB SHORT 07:30
PROVIDERS: Internal Medicine Nephrology
DX: N18.5 Chronic kidney disease, stage 5 (principal); D63.1 Anemia in chronic kidney disease; N25.81 Secondary hyperparathyroidism of renal origin; E55.9 Vitamin D deficiency, unspecified; E78.00 Pure hypercholesterolemia, unspecified; R76.9 Abnormal immunological finding in serum, unspecified; R94.5 Abnormal results of liver function studies; R94.6 Abnormal results of thyroid function studies
CPT/HCPCS: 81050; 82043; 82570; 84156

== ENCOUNTER 2022-11-27 15:05 | Emergency (ER) | payer OTHER ==
[~2022-11-27] VITALS: Ht 152.4 cm; Wt 106.6 kg
[2022-11-27 15:56] LABS: BASOPHILS PERCENT AUTO 1 % (0-2); EOSINOPHILS ABSOLUTE AUTO 0.13 K/mm3 (0.00-0.68); EOSINOPHILS PERCENT AUTO 1 % (0-6); Hematocrit 28.2 % (33.0-51.0); Hemoglobin 9.3 g/dL (11.5-16.0); IMMATURE GRAN ABSOLUTE AUTO 0.09 K/mm3 (0.00-0.10); IMMATURE GRAN PERCENT AUTO 1 % (0-1); LYMPHOCYTES ABSOLUTE AUTO 2.02 K/mm3 (0.84-5.20); LYMPHOCYTES PERCENT AUTO 19 % (21-46); MONOCYTES ABSOLUTE AUTO 1.08 K/mm3 (0.16-1.47); MONOCYTES PERCENT AUTO 10 % (4-13); Mean Corpuscular HGB 29.7 pg (26.0-34.0); Mean Corpuscular Volume 90 fL (80-100); Mean Platelet Volume 10.8 fL (9.1-12.4); NEUTROPHILS PERCENT AUTO 69 % (41-73); Platelet Count 263 K/mm3 (150-400); RDW Coefficient Variation 15.9 % (11.7-14.2); RDW Standard Deviation 51.8 fL (35.1-46.3); Red Blood Cell Count 3.13 M/mm3 (3.80-5.20); White Blood Cell Count 10.92 K/mm3 (4.00-11.30)
[2022-11-27 16:12] LABS: Albumin, Blood 3.2 g/dL (3.4-5.0); Albumin/Globulin Ratio 0.8 (0.8-1.8); Bilirubin, Total 0.3 mg/dL (0.1-1.0); Bun/Creatinine Ratio 9.5 (12.0-20.0); Calcium, Blood 8.8 mg/dL (8.5-10.1); Creatinine, Blood 2.83 mg/dL (0.40-1.00); Potassium, Blood 3.2 mmol/L (3.5-5.5); Total Protein, Blood 7.2 g/dL (6.4-8.2)
== END 2022-11-27 19:43 | disposition home or self-care (01) ==
LOC: ER 15:05
PROVIDERS: Emergency Medicine
DX: R55 Syncope and collapse (principal); F17.290 Nicotine dependence, other tobacco product, uncomplicated; Z88.8 Allergy status to other drugs, medicaments and biological substances; Z79.890 Hormone replacement therapy; Z79.02 Long term (current) use of antithrombotics/antiplatelets
CPT/HCPCS: 36415; 70450; 80053; 83880; 84484; 85025; A9270

== ENCOUNTER 2023-02-20 02:30 | Inpatient (IN) | payer MEDICARE, OTHER ==
[2023-02-20] VITALS (22 sets, daily range): BP systolic 81–989; BP diastolic 38–74
[~2023-02-20] VITALS: Ht 152.4 cm; Wt 113.5 kg
[2023-02-20 03:44] LABS: Hematocrit 29.9 % (33.0-51.0); Hemoglobin 9.7 g/dL (11.5-16.0); Mean Corpuscular HGB 29.1 pg (26.0-34.0); Mean Corpuscular HGB Conc 32.4 g/dL (31.5-36.5); Mean Corpuscular Volume 90 fL (80-100); Platelet Count 81 K/mm3 (150-400); RDW Coefficient Variation 13.7 % (11.7-14.2); RDW Standard Deviation 44.8 fL (35.1-46.3); Red Blood Cell Count 3.33 M/mm3 (3.80-5.20); White Blood Cell Count 6.14 K/mm3 (4.00-11.30)
[2023-02-20 03:51] LABS: Mean Platelet Volume 13.3 fL (9.1-12.4)
[2023-02-20 04:03] LABS: Albumin, Blood 2.7 g/dL (3.4-5.0); Albumin/Globulin Ratio 0.6 (0.8-1.8); Bilirubin, Total 0.5 mg/dL (0.1-1.0); Bun/Creatinine Ratio 7.6 (12.0-20.0); Calcium, Blood 9.3 mg/dL (8.5-10.1); Creatinine, Blood 9.19 mg/dL (0.40-1.00); Globulin, Blood 4.7 g/dL (2.2-4.0); Potassium, Blood 3.7 mmol/L (3.5-5.5); Total Protein, Blood 7.4 g/dL (6.4-8.2)
[2023-02-20 04:18] LABS: BAND PERCENT MAN 15 % (0-8); BASOPHILS PERCENT MAN 0 % (0-2); EOSINOPHILS PERCENT MAN 0 % (0-6); LYMPHOCYTES ABSOLUTE MAN 0.42 K/mm3 (0.84-5.20); LYMPHOCYTES PERCENT MAN 7 % (21-46); MONOCYTES ABSOLUTE MAN 0.06 K/mm3 (0.16-1.47); MONOCYTES PERCENT MAN 1 % (4-13); NEUTROPHILS ABSOLUTE MAN 5.64 K/mm3 (1.96-9.15); SEG NEUTROPHILS PERCENT MAN 77 % (41-73); TOTAL CELLS COUNTED 100
[2023-02-20 05:03] LABS: Influenza A, PCR NEGATIVE (NEGATIVE); Influenza B, PCR NEGATIVE (NEGATIVE); Resp Syncytial Virus, PCR NEGATIVE (NEGATIVE); SARS-Cov-2 (COVID-19) PCR, MMC NEGATIVE (NEGATIVE)
[2023-02-20 05:35] LABS: Source, Urine Straight Cath
[2023-02-20 05:46] LABS: Appearance, Urine Clear (Clear); Bilirubin, Urine Neg (Neg); Blood, Urine 4+ (Neg); Color, Urine Yellow (P-Yellow); Glucose Qualitative, Urine 3+ (Neg); Ketones, Urine Neg (Neg); Leukocyte Esterase, Urine Neg (Neg); Nitrite, Urine Neg (Neg); Protein, Urine 4+ (Neg); Specific Gravity, Urine 1.005 (1.003-1.022); Urobilinogen, Urine NORM (Normal)
[2023-02-20 05:55] LABS: Amorphous Light (0-Heavy); Bacteria Few /hpf; Squamous Epithelial Cells Few /hpf (Few); White Blood Cells, Urine 0-2 /hpf (0-5)
[2023-02-20] MEDS ORDERED: MIDO5 PO (14:13)
[2023-02-20] MEDS ORDERED: Cyclobenzaprine5 MG PO (14:14)
[2023-02-20] MEDS ORDERED: ELIQUIS5 M2 PO (14:15)
[2023-02-20] MEDS ORDERED: ALLO100 PO (14:15)
[2023-02-20] MEDS ORDERED: SODBIC650 PO (14:16)
[2023-02-20] MEDS ORDERED: AURYXIA210 MG PO (14:17)
[2023-02-20] MEDS ORDERED: Calcium Acetat667 MG PO (14:18)
[2023-02-20] MEDS ORDERED: CALCIUM ACETAT667 MG PO (14:19)
[2023-02-20] MEDS ORDERED: THERA-D2000 UNIT PO (14:20)
--- NOTE | 2023-02-20 16:45 | NUR ---
LATE ENTRY/ER ADMIT 0900: 0845:RECEIVED REPORT FROM FIBER MACHINE TENDER. 0900:RECEIVED PT FROM ER VIA GURNEY, PLACED IN BED, MADE COMFORTABLE, ORIENTED TO ROOM & UNIT ROUTINE. PT A&O X 4, IS PLEASANT & COOPERATIVE. VSS UPON ADMIT. PIV IN L AC, INTACT & PATENT. DIALYSIS CATHETER IN R UPPER CHEST, DRSNG C/D/I. SKIN CHECK DONE WITH 2nd RN. BOTTOM IS REDDENED & EXCORIATED FROM PT STATING SHE HAS BEEN HAVING FREQ WATERY DIARRHEA. USING BARRIER CREAM & POWDER WITH EACH CLEAN UP & CHANGE. AWARE, ORDERS RECEIVED TO SEND A GI PANEL WITH NEXT BM. DOPE FIRER NOTIFIED OF PT'S ADMISSION TO HOSP, IS A FREQ DIALYSIS PT. PT WILL LIKELY HAVE DIALYSIS TODAY.
--- NOTE | 2023-02-20 20:07 | NUR ---
SHIFT SUMMARY PT HAS RESTED COMFORTABLY SINCE ER ADMIT. VSS. DIALYSIS IN THIS AFTERNOON TO DO DIALYSIS. PT HAS BEEN PLEASANT & COOPERATIVE WITH ALL CARE. PT HAS BEEN HAVING LOOSE WATERY STOOLS, ORDERED GI PANEL. AWAITING ANOTHER STOOL TO SEND SPECIMEN. APPETITE IS MARGINAL. BLOOD SUGARS COVERED PER EMAR. PLAN IS LIKELY HOME UPON DC.
--- NOTE | 2023-02-20 21:00 | NUR ---
Pt had low bp at start of treatment. I notified the bedside RN and inititated tx per protocol. Pt recieved approx 2 hours of tx when I got a bp reading that was much lower than previous readings and concerned me. We were taking the bp on her forearm negro to discomfort and inaccurate readings. I adjuste dthe cuff and retook the bp without much difference. I notified the bedside RN who came in and helped adjust the bp cuff. The next reading was imporved. It was not long before another low reading. I turned the UF rate off so as to not pull anymore fluids. I gave her a 100ml saline bolous and retook her bp. With another low reading I notifed the bedside RN ronald who at the time was a little distracted with shift change. I then went back tto the pt side to check on them and she stated she was now feeling short of breath. I got the vitals machine so that I could get an SpO2 reading and it initialy said 55%. I let the nurse know and asked for a nasal canula to deliver o2 tot he pt. I retook and reajusted the finger probe and got a reading of 80%. The day nurs kristi dn night nurse were now in the room and it became clear that they intended to call a rapid response. I disconnected the pt to return their blood so that the machines would not be as in the way during the chaos. As the blood was returnning I started to notice the saline bag fill with blood. I immediatedly shut off the blood pump so that it would not continue and I notified the room of the concern and potential blood loss. The pt doctor was notifed. Once pt was stable she was transported to the ICU on vassopressors. transported to ICU on vassopressors. the bp on her forearm due to inacurate readings and discomfort
--- NOTE | 2023-02-20 21:00 | NUR ---
ASSUMED CARE PT IS A&O X4; COOPERATIVE. SPO2 >92% ON 3L NC, MAP >65 ON DOPAMINE, HR IN THE 100'S. PT HAS C/O OF PAIN "EVERYWHERE" AND CP W/ INSPIRATION. NO C/O OF SOB, OR NAUSEA.
[2023-02-20 22:00] LABS: Hematocrit 25.2 % (33.0-51.0); Hemoglobin 8.1 g/dL (11.5-16.0); Mean Corpuscular HGB Conc 32.1 g/dL (31.5-36.5); Mean Corpuscular Volume 90 fL (80-100); Platelet Count 58 K/mm3 (150-400); RDW Coefficient Variation 13.6 % (11.7-14.2); RDW Standard Deviation 45.5 fL (35.1-46.3); Red Blood Cell Count 2.79 M/mm3 (3.80-5.20); White Blood Cell Count 6.64 K/mm3 (4.00-11.30)
[2023-02-20 22:07] LABS: Mean Platelet Volume 13.9 fL (9.1-12.4)
[2023-02-20 22:20] LABS: BAND PERCENT MAN 10 % (0-8); BASOPHILS ABSOLUTE MAN 0.06 K/mm3 (0.00-0.23); BASOPHILS PERCENT MAN 1 % (0-2); EOSINOPHILS PERCENT MAN 0 % (0-6); LYMPHOCYTES ABSOLUTE MAN 0.73 K/mm3 (0.84-5.20); LYMPHOCYTES PERCENT MAN 11 % (21-46); MONOCYTES ABSOLUTE MAN 0.66 K/mm3 (0.16-1.47); MONOCYTES PERCENT MAN 10 % (4-13); NEUTROPHILS ABSOLUTE MAN 5.17 K/mm3 (1.96-9.15); SEG NEUTROPHILS PERCENT MAN 68 % (41-73); TOTAL CELLS COUNTED 100
[2023-02-21] VITALS (81 sets, daily range): BP systolic 80–167; BP diastolic 32–110
--- NOTE | 2023-02-21 00:26 | NUR ---
BUPDATE DR AVENDANO IN TO SEE PT W/ ORDERS FOR AM ECHOCARDIOGRAM/CORTISOL TEST, IN ADDITION TO MIDODRINE AND HYPERTENSIVE MEDICATION PARAMETERS.
[2023-02-21 03:42] LABS: Hematocrit 21.9 % (33.0-51.0); Mean Corpuscular HGB 28.5 pg (26.0-34.0); Mean Corpuscular Volume 89 fL (80-100); Mean Platelet Volume 12.8 fL (9.1-12.4); Platelet Count 57 K/mm3 (150-400); RDW Coefficient Variation 13.7 % (11.7-14.2); RDW Standard Deviation 45.1 fL (35.1-46.3); Red Blood Cell Count 2.46 M/mm3 (3.80-5.20); White Blood Cell Count 5.61 K/mm3 (4.00-11.30)
[2023-02-21 03:59] LABS: Albumin, Blood 2.3 g/dL (3.4-5.0); Albumin/Globulin Ratio 0.6 (0.8-1.8); Bilirubin, Total 0.4 mg/dL (0.1-1.0); Bun/Creatinine Ratio 7.9 (12.0-20.0); Calcium, Blood 8.5 mg/dL (8.5-10.1); Creatinine, Blood 6.46 mg/dL (0.40-1.00); Globulin, Blood 3.7 g/dL (2.2-4.0); Magnesium, Blood 1.8 mg/dL (1.6-2.4); Phosphorus, Blood 2.8 mg/dL (2.5-4.9); Potassium, Blood 3.4 mmol/L (3.5-5.5)
[2023-02-21 04:02] LABS: BAND PERCENT MAN 6 % (0-8); BASOPHILS PERCENT MAN 0 % (0-2); EOSINOPHILS PERCENT MAN 0 % (0-6); LYMPHOCYTES % ATYPICAL MANUAL 1 % (0-0); LYMPHOCYTES ABSOLUTE MAN 0.67 K/mm3 (0.84-5.20); LYMPHOCYTES PERCENT MAN 11 % (21-46); MONOCYTES ABSOLUTE MAN 0.33 K/mm3 (0.16-1.47); MONOCYTES PERCENT MAN 6 % (4-13); SEG NEUTROPHILS PERCENT MAN 76 % (41-73); TOTAL CELLS COUNTED 100
--- NOTE | 2023-02-21 05:43 | NUR ---
SHIFT SUMMARY PT IS RESTING QUIETLY. NO C/O OF CHANGE IN PAIN REPORTED IN PREVIOUS NOTES. CURRENTLY ON RA. NO C/O OF SOB OR NAUSEA. TKO, DOPAMINE OFF. SBP IN THE 110'S. SINUS RHYTHM. SPO2 >92%. NO EVENTS SINCE ASSUMPTION OF CARE NOTE.
[2023-02-21 12:09] LABS: Hematocrit 22.3 % (33.0-51.0); Hemoglobin 7.3 g/dL (11.5-16.0)
--- NOTE | 2023-02-21 17:08 | NUR ---
CULTURE SET OBTAINED FROM DIALYSIS CVC PER ORDERS GIVEN. ART PORT UNABLE TO ASPIRATE FULLY. TERRIE PORT FLOWS BRISKLY. AFTER SAMPLE OBTAINED, BOTH PORT FLUSHED BRISKLY WITH NS AND THEN RE-ANTCOAGULATED WITH 10/999 UNIT HEPARIN PER LUMEN VOLUME. DRESSING CHANGE PERFORMED. EXIT SITE RED AND SORE TO TOUCH. CLEANED WITH CHLOROPREP / ALCOHOL PREP SWAB. TEGADERM DRESSING APPLIED. HEATING REPAIR TECHNICIAN INFORMED OF FINDIGS. SURGICAL SALES REPRESENTATIVE CARRIED TO LAB.
--- NOTE | 2023-02-21 17:18 | NUR ---
SHIFT SUMMARY PT CONTINUES TO REST IN BED. PT ANSWERS QUESTIONS APPROPRIATELY AND FOLLOWS COMMANDS. HR 70-80'S, BP STABLE. PT RECEIVES HD AND HAS OLIGURIA. PT COMPLAINS OF GENERALIZED PAIN, MEDICATED PER EMAR. NS INFUSING KVO. BLOOD CULTURES DRAN FROM [facility] BY DIALYSIS NURSE WILIAM. NO ACUTE CHANGES THIS SHIFT. WILL CONTINUE TO MONITOR AND GIVE REPORT TO ONCOMING RN.
--- NOTE | 2023-02-21 21:46 | NUR ---
ASSUMPTION OF CARE/ ASSESSMENT: ASSUMED CARE OF PT AT 1900. PT IS A&O X 4 AND USES CALL LIGHT APPROPRIATELY TO COMMUNCATE NEEDS. PT HAS C/O GENERALIZED PAIN ALL OVER HER BODY. PT ON NC @ 3LPM; LUNG SOUNDS CLEAR WITH DIM BASES BILATERALLY. SR ON MONITOR WITH HR 80-90, SBP 130'S. PT HAS OBESE, SOFT, NON-TENDER ABD; TOLERATING PO INTAKE AND DRINKS WATER/EATS MEALS INDEPENDENTLY. PT OBSERVED TO BE VERY WEAK AND IS NOT REALLY HELPING TO REPOSITION HERSELF IN BED; WHEN PROMTED TO MOVE LEGS PT STATES THAT SHE COULD NOT AND NEED STAFF TO HELP WITH ALL REPOSITIONING. PT C/O DISCOMFORT IN BED AND THIS RN AND ANOTHER RN WERE ABLE TO MOVE PT TO RECLINER USING THE LIFT AND PT IS MORE COMFORTABLE BEING ABLE TO SIT UPRIGHT WITH LEGS DOWN. PT EATING DINNER TRAY NOW IN RECLINER. PPP X 4; SKIN INTACT AND WARM, EXCORATION ON BOTTOM AND IN SKIN FOLDS. BED LOWERED, CALL LIGHT IN REACH, WILL CONTINUE TO MONITOR.
[2023-02-22] VITALS (17 sets, daily range): BP systolic 88–149; BP diastolic 53–78
[2023-02-22 04:29] LABS: BASOPHILS ABSOLUTE AUTO 0.02 K/mm3 (0.00-0.23); BASOPHILS PERCENT AUTO 0 % (0-2); EOSINOPHILS ABSOLUTE AUTO 0.05 K/mm3 (0.00-0.68); EOSINOPHILS PERCENT AUTO 1 % (0-6); Hematocrit 22.7 % (33.0-51.0); Hemoglobin 7.4 g/dL (11.5-16.0); IMMATURE GRAN ABSOLUTE AUTO 0.25 K/mm3 (0.00-0.10); IMMATURE GRAN PERCENT AUTO 3 % (0-1); LYMPHOCYTES ABSOLUTE AUTO 1.64 K/mm3 (0.84-5.20); LYMPHOCYTES PERCENT AUTO 18 % (21-46); MONOCYTES ABSOLUTE AUTO 0.73 K/mm3 (0.16-1.47); MONOCYTES PERCENT AUTO 8 % (4-13); Mean Corpuscular HGB 29.2 pg (26.0-34.0); Mean Corpuscular HGB Conc 32.6 g/dL (31.5-36.5); Mean Corpuscular Volume 90 fL (80-100); NEUTROPHILS ABSOLUTE AUTO 6.54 K/mm3 (1.96-9.15); NEUTROPHILS PERCENT AUTO 71 % (41-73); Platelet Count 61 K/mm3 (150-400); RDW Coefficient Variation 13.7 % (11.7-14.2); RDW Standard Deviation 45.1 fL (35.1-46.3); Red Blood Cell Count 2.53 M/mm3 (3.80-5.20); White Blood Cell Count 9.23 K/mm3 (4.00-11.30)
[2023-02-22 04:33] LABS: Mean Platelet Volume 14.3 fL (9.1-12.4)
[2023-02-22 04:47] LABS: Albumin/Globulin Ratio 0.5 (0.8-1.8); Bilirubin, Total 0.4 mg/dL (0.1-1.0); Bun/Creatinine Ratio 8.4 (12.0-20.0); Calcium, Blood 9.1 mg/dL (8.5-10.1); Creatinine, Blood 7.93 mg/dL (0.40-1.00); Globulin, Blood 3.9 g/dL (2.2-4.0); Phosphorus, Blood 2.6 mg/dL (2.5-4.9); Potassium, Blood 3.5 mmol/L (3.5-5.5); Total Protein, Blood 5.9 g/dL (6.4-8.2)
--- NOTE | 2023-02-22 06:39 | NUR ---
SHIFT SUMMARY: NO ACUTE CHANGES THROUGHOUT THE NIGHT. PT WAS ABLE TO SLEEP FOR THE MAJORITY OF THE NIGHT. PT CONTINUES TO CALL OUT IN PAIN AND CONTINUOUSLY STATES "OW" THROUGHOUT THE NIGHT. PT EXPRESSES LOTS OF PAIN WITH ANY BODY MOVEMENT; PT MEDICATED PER EMAR. PT HAD NO BM THIS SHIFT; STOOL STAMPLE STILL NEEDS TO BE COLLECTED. VSS THROUGHOUT THE NIGHT. BED LOWERED, CALL LIGHT IN REACH, WILL CONTINUE TO MONITOR UNTIL ONCOMING RN ARRIVES.
--- NOTE | 2023-02-22 07:40 | NUR ---
ASSUMED CARE OF PATIENT.
--- NOTE | 2023-02-22 08:32 | NUR ---
PATIENT TO DIALYSIS AT 0820.
--- NOTE | 2023-02-22 11:33 | NUR ---
PROVIDER PHONE CALL: Dr. Castrejon called and notified of positive blood cultures. Telephone order to consult general surgery to D/C permacath after dialysis today and replace in [address] Espino called and updated on plan.
--- NOTE | 2023-02-22 12:20 | NUR ---
PT BACK FROM DIALYSIS
--- NOTE | 2023-02-22 18:00 | NUR ---
SURGEON AT BEDSIDE: Dr Frias at bedside to remove permacath
--- NOTE | 2023-02-22 18:34 | NUR ---
END OF SHIFT SUMNARY: NEURO: A&OX4. EXTREMITIES WEAK THROUGHOUT. RESP: PATIENT IS ON 2L NC. CARDIO: PATIENT HAS BEEN IN A NORMAL SINUS RHYTHYM 80-90S : NO URINARY OUTPUT TODAY. PT STATES OLIGURIA IS NORMAL. 3L OFF IN DIALYSIS GI: NO BM SKIN: DRESSING WAS PALCED ON COCCYX. SEE SKIN ASSESSMENT. IVS: PG LIZBET, 20G IV LAC. BOTH LINES PATENT AND FLUSHING.
[2023-02-23] VITALS (10 sets, daily range): BP systolic 139–161; BP diastolic 60–74
[2023-02-23 03:26] LABS: BASOPHILS ABSOLUTE AUTO 0.04 K/mm3 (0.00-0.23); BASOPHILS PERCENT AUTO 0 % (0-2); EOSINOPHILS ABSOLUTE AUTO 0.08 K/mm3 (0.00-0.68); EOSINOPHILS PERCENT AUTO 1 % (0-6); Hematocrit 21.4 % (33.0-51.0); Hemoglobin 6.9 g/dL (11.5-16.0); IMMATURE GRAN ABSOLUTE AUTO 0.16 K/mm3 (0.00-0.10); IMMATURE GRAN PERCENT AUTO 2 % (0-1); LYMPHOCYTES ABSOLUTE AUTO 1.87 K/mm3 (0.84-5.20); LYMPHOCYTES PERCENT AUTO 20 % (21-46); MONOCYTES ABSOLUTE AUTO 0.74 K/mm3 (0.16-1.47); MONOCYTES PERCENT AUTO 8 % (4-13); Mean Corpuscular HGB 28.6 pg (26.0-34.0); Mean Corpuscular HGB Conc 32.2 g/dL (31.5-36.5); Mean Corpuscular Volume 89 fL (80-100); NEUTROPHILS ABSOLUTE AUTO 6.48 K/mm3 (1.96-9.15); NEUTROPHILS PERCENT AUTO 69 % (41-73); Platelet Count 92 K/mm3 (150-400); RDW Coefficient Variation 13.9 % (11.7-14.2); RDW Standard Deviation 45.1 fL (35.1-46.3); Red Blood Cell Count 2.41 M/mm3 (3.80-5.20); White Blood Cell Count 9.37 K/mm3 (4.00-11.30)
[2023-02-23 03:29] LABS: Mean Platelet Volume 13.2 fL (9.1-12.4)
[2023-02-23 03:57] LABS: Albumin, Blood 2.3 g/dL (3.4-5.0); Albumin/Globulin Ratio 0.6 (0.8-1.8); Bilirubin, Total 0.6 mg/dL (0.1-1.0); Bun/Creatinine Ratio 7.3 (12.0-20.0); Calcium, Blood 8.4 mg/dL (8.5-10.1); Creatinine, Blood 5.18 mg/dL (0.40-1.00); Globulin, Blood 3.7 g/dL (2.2-4.0); Phosphorus, Blood 1.2 mg/dL (2.5-4.9); Potassium, Blood 3.5 mmol/L (3.5-5.5)
--- NOTE | 2023-02-23 05:04 | NUR ---
PATIENT AOX4, FOLLOWS COMMANDS. ABLE TO MOVE ALL EXTREMETIES BUT NEEDS TO BE ENCOURAGED TO DO SO SHE WILL LAY STILL TO AVOID PAIN. PRN FLEXERIL AND FENTANYL GIVEN OVERNIGHT. SR WITH STABLE BP. 2L NC. DID NOT VOID OVERNIGHT.
--- NOTE | 2023-02-23 08:00 | NUR ---
INITIAL ASSESSMENT PATIENT ALERT AND ORIENTED X 4, AFEBRILE. PATIENT CALM, BUT DOES GET IRRITATED AT TIMES. PATIENT WEAK BUT ABLE TO MOVE ALL EXTREMITIES. PATIENT STATES SHE USES WALKER AT HOME. PATIENT ON 2 L NC TO KEEP SATS 90% AND GREATER. LUNGS CLEAR IN UPPER LOBES AND DIMINISHED IN LOWER LOBES. PATIENT IN SR, HR 70S TO 80S. SBP IN THE 150S. PATIENT HAS POOR APPETITE. LAST BM NOTED ON 02/20. PATIENT OLIGURIC; DIALYSIS PATIENT. REDDENED GROIN AND BREAST FOLDS NOTED. EXCORIATION TO COCCYX AND GLUTEAL CLEFT. BED LOW, CALL LIGHT IN REACH. WILL CONTINUE TO MONITOR PATIENT FREQUENTLY THROUGHOUT SHIFT.
[2023-02-23 10:51] LABS: Vancomycin, Random 20.5 ug/mL
--- NOTE | 2023-02-23 12:10 | NUR ---
PATIENT AFEBRILE. HR IN THE 80S. SBP IN THE 130S. BLOOD SUGAR OF 318; COVERAGE ADMINISTERED. NO OTHER ACUTE CHANGES TO NOTE ON AT THIS TIME. WILL CONTINUE TO MONITOR.
--- NOTE | 2023-02-23 16:42 | NUR ---
Pt.is awake in her bed when she welcomed my visit. Pt. is cautiously pleasant. Pt. displays evidence of having concerns over the difficulty of het PT/OT. Listen with empathy and a calming presence and seek to normlaize the Pt. experience. Pt. displays evidence of agreement, understanding and awareness. Prayed with Pt. Pt. verbalized gratitude and welcomed this production supervisor off shift to return tomorrow.
--- NOTE | 2023-02-23 19:08 | NUR ---
SHIFT SUMMARY PATIENT REMAINED ALERT AND ORIENTED X 4, AFEBRILE. PRN FLEXERIL AND FENTANYL GIVEN FOR COMPLAINTS OF "ALL OVER" PAIN. PATIENT WORKED WITH PT AND OT. PATIENT PAINFUL WITH MOVEMENT AND WEAK. PATIENT REMAINED ON 2 L NC TO KEEP SATS 90% AND GREATER. PATIENT REMAINED IN SR, HR 70S TO 80S. SBP 130S TO 150S. POOR APPETITE. BLOOD SUGARS 182 TO 318. NO BM THIS SHIFT. NO URINE OUTPUT THIS SHIFT. NO CHANGES TO SKIN NOTED. PATIENT RECEIVED 1 UNIT RBCS. REFUSED BEDBATH. REPORT GIVEN TO ASSUMING NURSE.
[2023-02-24 02:56] VITALS: BP 155/67
[2023-02-24 06:27] LABS: BASOPHILS ABSOLUTE AUTO 0.06 K/mm3 (0.00-0.23); BASOPHILS PERCENT AUTO 1 % (0-2); EOSINOPHILS ABSOLUTE AUTO 0.15 K/mm3 (0.00-0.68); EOSINOPHILS PERCENT AUTO 1 % (0-6); Hematocrit 23.3 % (33.0-51.0); Hemoglobin 7.8 g/dL (11.5-16.0); IMMATURE GRAN ABSOLUTE AUTO 0.64 K/mm3 (0.00-0.10); IMMATURE GRAN PERCENT AUTO 5 % (0-1); LYMPHOCYTES ABSOLUTE AUTO 2.46 K/mm3 (0.84-5.20); LYMPHOCYTES PERCENT AUTO 19 % (21-46); MONOCYTES ABSOLUTE AUTO 0.98 K/mm3 (0.16-1.47); MONOCYTES PERCENT AUTO 8 % (4-13); Mean Corpuscular HGB Conc 33.5 g/dL (31.5-36.5); Mean Corpuscular Volume 87 fL (80-100); Mean Platelet Volume 12.5 fL (9.1-12.4); NEUTROPHILS ABSOLUTE AUTO 8.83 K/mm3 (1.96-9.15); NEUTROPHILS PERCENT AUTO 67 % (41-73); Platelet Count 126 K/mm3 (150-400); RDW Coefficient Variation 14.6 % (11.7-14.2); RDW Standard Deviation 46.4 fL (35.1-46.3); Red Blood Cell Count 2.69 M/mm3 (3.80-5.20); White Blood Cell Count 13.12 K/mm3 (4.00-11.30)
[2023-02-24 06:37] LABS: Albumin, Blood 2.1 g/dL (3.4-5.0); Albumin/Globulin Ratio 0.5 (0.8-1.8); Bilirubin, Total 0.6 mg/dL (0.1-1.0); Bun/Creatinine Ratio 8.6 (12.0-20.0); Calcium, Blood 8.6 mg/dL (8.5-10.1); Creatinine, Blood 6.54 mg/dL (0.40-1.00); Globulin, Blood 4.1 g/dL (2.2-4.0); Potassium, Blood 3.4 mmol/L (3.5-5.5); Total Protein, Blood 6.2 g/dL (6.4-8.2)
[2023-02-24 07:53] VITALS: BP 131/109
[2023-02-24 10:52] LABS: Vancomycin, Random 19.4 ug/mL
--- NOTE | 2023-02-24 12:08 | NUR ---
[facility] CATH CALLED DR QUIROZ TO CLARIFY PLAN FOR [facility]MA CATH. HE DECLINED PLACEMENT D/T BLOOD CULTURE RESULTS. CALLED DR BELLAMY REALTED INFORMATION. CONTINUE POC.
[2023-02-24 19:37] VITALS: BP 174/69
[2023-02-25 05:34] VITALS: BP 142/107
[2023-02-25 07:31] VITALS: BP 154/97
[2023-02-25 08:13] LABS: Hematocrit 25.5 % (33.0-51.0); Hemoglobin 8.7 g/dL (11.5-16.0)
[2023-02-25 08:29] LABS: Albumin, Blood 2.2 g/dL (3.4-5.0); Anion Gap 15 mmol/L (6-16); Blood Urea Nitrogen 70 mg/dL (8-24); Bun/Creatinine Ratio 8.9 (12.0-20.0); CO2, Blood 23 mmol/L (21-32); Calcium, Blood 9.5 mg/dL (8.5-10.1); Chloride, Blood 89 mmol/L (98-108); Creatinine, Blood 7.83 mg/dL (0.40-1.00); Glomerular Filtration Rate 6 (60-); Glucose, Blood 219 mg/dL (70-99); Magnesium, Blood 2.1 mg/dL (1.6-2.4); Phosphorus, Blood 3.3 mg/dL (2.5-4.9); Potassium, Blood 3.6 mmol/L (3.5-5.5); Sodium, Blood 127 mmol/L (136-145)
[2023-02-25 20:31] VITALS: BP 171/81
[2023-02-26 02:19] VITALS: BP 177/92
[2023-02-26 05:52] LABS: BASOPHILS ABSOLUTE AUTO 0.05 K/mm3 (0.00-0.23); BASOPHILS PERCENT AUTO 0 % (0-2); EOSINOPHILS ABSOLUTE AUTO 0.13 K/mm3 (0.00-0.68); EOSINOPHILS PERCENT AUTO 1 % (0-6); Hematocrit 23.3 % (33.0-51.0); Hemoglobin 7.9 g/dL (11.5-16.0); IMMATURE GRAN ABSOLUTE AUTO 0.78 K/mm3 (0.00-0.10); IMMATURE GRAN PERCENT AUTO 6 % (0-1); LYMPHOCYTES ABSOLUTE AUTO 2.19 K/mm3 (0.84-5.20); LYMPHOCYTES PERCENT AUTO 16 % (21-46); MONOCYTES ABSOLUTE AUTO 0.75 K/mm3 (0.16-1.47); MONOCYTES PERCENT AUTO 6 % (4-13); Mean Corpuscular HGB 29.2 pg (26.0-34.0); Mean Corpuscular HGB Conc 33.9 g/dL (31.5-36.5); Mean Corpuscular Volume 86 fL (80-100); Mean Platelet Volume 11.8 fL (9.1-12.4); NEUTROPHILS PERCENT AUTO 71 % (41-73); Platelet Count 218 K/mm3 (150-400); RDW Coefficient Variation 14.2 % (11.7-14.2); RDW Standard Deviation 44.2 fL (35.1-46.3); Red Blood Cell Count 2.71 M/mm3 (3.80-5.20)
[2023-02-26 06:25] LABS: Magnesium, Blood 2.2 mg/dL (1.6-2.4)
[2023-02-26 06:39] LABS: Alanine Aminotransfer (ALT/SGP 20 U/L (12-78); Albumin, Blood 2.1 g/dL (3.4-5.0); Albumin/Globulin Ratio 0.4 (0.8-1.8); Alk Phos 277 U/L (50-136); Anion Gap 15 mmol/L (6-16); Aspartate Aminotrans (AST/SGOT 14 U/L (12-37); Bilirubin, Total 0.4 mg/dL (0.1-1.0); Blood Urea Nitrogen 80 mg/dL (8-24); Bun/Creatinine Ratio 9.4 (12.0-20.0); CO2, Blood 24 mmol/L (21-32); Calcium, Blood 9.2 mg/dL (8.5-10.1); Chloride, Blood 84 mmol/L (98-108); Creatinine, Blood 8.47 mg/dL (0.40-1.00); Globulin, Blood 4.8 g/dL (2.2-4.0); Glomerular Filtration Rate 5 (60-); Glucose, Blood 260 mg/dL (70-99); Phosphorus, Blood 3.9 mg/dL (2.5-4.9); Potassium, Blood 3.8 mmol/L (3.5-5.5); Sodium, Blood 123 mmol/L (136-145); Total Protein, Blood 6.9 g/dL (6.4-8.2)
[2023-02-26 06:40] LABS: C-Reactive Protein, High Sens. >190.000 mg/L (0.000-3.000)
[2023-02-26 07:48] VITALS: BP 179/89
[2023-02-26 10:41] LABS: Vancomycin, Random 15.3 ug/mL
--- NOTE | 2023-02-26 11:24 | NUR ---
ANTONIO COORDINATING WITH ICU AND DR EDWARDS FOR LINE PLACMENT. PHARMACY CONFIRMED TO GIVE VANCOMYCIN BEFORE PLANNED DIALYSIS RUN. CONTINUE POC.
--- NOTE | 2023-02-26 12:21 | NUR ---
ROMY BARRAZA NOTIFIED BY MARIA T REYNA THE DR EDWARDS AND DR OCAMPO HAVE DECIDED TO DELAY THE PLACMEENT D/T BLOOD CULTURES. ASKED THAT DR EDWARDS CALL DR AVENDANO TO RELAY THAT INFORMATION. CALLED DR OCAMPO TO TALK WITH PT. CONTINUE POC.
[2023-02-26 15:03] VITALS: BP 186/93
[2023-02-26 19:19] VITALS: BP 154/69
[2023-02-27 05:23] VITALS: BP 175/89
--- NOTE | 2023-02-27 05:37 | NUR ---
SHIFT SUMMARY PT LAYING IN BED DURING BEDSIDE REPORT- PT REPORTED PAIN STARTING TO INCREASE AND REQUESTED PAIN MEDICINE WITH HS MEDICATIONS- MEDICATED PT X2 T/O NIGHT FOR 05/27 GENERAL PAIN- PT AMBULATED TO BR A COUPLE TIMES T/O NIGHT AND LOW URINE OUTPUT- PT STATED, "MY URINE FEELS REALLY THICK WITH I PEE"- URINE LIGHT YELLOW APPEARS TO HAVE SEDIMENT- PT USED CALL LIGHT APPROPRIATE T/O NIGHT- PT ON STRICT 1000ML FLUID RESTRICTION- PT COMPLIENT WITH FLUID RESTRICTION, BED LOW POSITION, CALL LIGHT WITHIN REACH
[2023-02-27 06:34] LABS: Hematocrit 22.6 % (33.0-51.0); Hemoglobin 7.7 g/dL (11.5-16.0)
[2023-02-27 07:01] LABS: Magnesium, Blood 2.4 mg/dL (1.6-2.4)
[2023-02-27 07:18] LABS: Anion Gap 13 mmol/L (6-16); Blood Urea Nitrogen 91 mg/dL (8-24); Bun/Creatinine Ratio 9.7 (12.0-20.0); CO2, Blood 25 mmol/L (21-32); Calcium, Blood 8.7 mg/dL (8.5-10.1); Chloride, Blood 85 mmol/L (98-108); Glomerular Filtration Rate 5 (60-); Glucose, Blood 111 mg/dL (70-99); Phosphorus, Blood 5.4 mg/dL (2.5-4.9); Potassium, Blood 4.2 mmol/L (3.5-5.5); Sodium, Blood 123 mmol/L (136-145)
[2023-02-27 07:43] VITALS: BP 175/82
[2023-02-27 09:57] VITALS: BP 181/88
[2023-02-27 16:35] VITALS: BP 180/99
[2023-02-27 16:39] VITALS: BP 182/90
--- NOTE | 2023-02-27 17:35 | NUR ---
SHIFT SUMMARY PT A&OX4 AND IN PLEASENT MOOD T/O SHIFT. PT C/O HEARTBURN-REPORTED TO PLAN TO MEDICATE PER EMAR. HTN, REPORTED TO MEDICATED PER EMAR. TOLERATED BREAKFAST, REFUSED LUNCH DUE TO HEARTBURN. CALL LIGHT W/ IN REACH. VSS.
[2023-02-27 19:44] VITALS: BP 156/71
[2023-02-28] VITALS (35 sets, daily range): BP systolic 121–183; BP diastolic 64–139
--- NOTE | 2023-02-28 06:40 | NUR ---
SHIFT SUMMARY PT LAYING IN BED DURING BEDSIDE REPORT- PT REQUESTED PAIN MED, MUSCLE RELAXER WITH HS MEDS- PT TOOK SCHEDULED HS MEDS WITHOUT PROBLEMS, PT C/O CONTINUING TO HAVE HEART BURN AND PAIN NOT IN CONTROL- CALL TO DR. SANCHEZ- CHANGED PRN PAIN MED FROM DILAUDID PO TO NORCO 7.5- 0600 PT HYPERTENSIVE GAVE HYDRALAZINE IV PER PRN ORDER- BP DECREASED SOME BUT WILL CONTINUE TO WATCH- DRAW AM LABS FROM [facility]
[2023-02-28 06:41] LABS: Hematocrit 24.3 % (33.0-51.0); Hemoglobin 8.3 g/dL (11.5-16.0)
[2023-02-28 07:14] LABS: Magnesium, Blood 2.4 mg/dL (1.6-2.4)
[2023-02-28 07:25] LABS: Albumin, Blood 2.1 g/dL (3.4-5.0); Anion Gap 14 mmol/L (6-16); Blood Urea Nitrogen 101 mg/dL (8-24); Bun/Creatinine Ratio 9.9 (12.0-20.0); CO2, Blood 22 mmol/L (21-32); Calcium, Blood 8.8 mg/dL (8.5-10.1); Chloride, Blood 81 mmol/L (98-108); Glomerular Filtration Rate 4 (60-); Glucose, Blood 116 mg/dL (70-99); Phosphorus, Blood 7.2 mg/dL (2.5-4.9); Potassium, Blood 4.7 mmol/L (3.5-5.5); Sodium, Blood 117 mmol/L (136-145); Vancomycin, Random 22.8 ug/mL
--- NOTE | 2023-02-28 07:30 | NUR ---
DR AVENDANO IN ROOM. ALISA REYNA NOTIFIED OF LABS NA 117, CRAT 10.2 DR AVENDANO NOTIFIED. STATES PT NEEDS TRANSFERRED TO ICU. PL[facility]IAL[facility] CATH. PT STILL SEPTIC, RECONSULT DR ASHER GODOY FOR PLACEMENT. GAVE ORDERS TO ALCOHOLISM WORKER. GOING TO ICU RM 9 CALLED [facility] SENIOR GRADUATE ADVISOR FOR REPORT.
--- NOTE | 2023-02-28 08:30 | NUR ---
PT TRANSFERRED TO ICU CARE OF REG[facility] RN
--- NOTE | 2023-02-28 11:31 | NUR ---
ASSUMPTION OF CARE PT ADMITTED TO ICU 9 FROM MEDICAL FLOOR FOR 3% NACL OR DIALYSIS CATHETER PLACEMENT. PT ALERT AND ORIENTED, WEAKLY MOVING EXTREMITIES. ABLE TO ASSIST WITH TURNS, HAVE NOT HAD PT UP TO BEDSIDE COMMODE YET. PT C/O GENERALIZED PAIN AND HEADACHE, MEDICATED PRIOR TO ARRIVAL TO ICU. PO ANTIHYPERTENSIVES GIVEN, SBP REMAINED >160, PRN HYDRALYZINE ADMINISTERED. CHARGE NURSE JEYSON SPOKE WITH DR EDWARDS REGARDING DIALYSIS CATHETER PLACEMENT, AWAITING NEXT STEP.
--- NOTE | 2023-02-28 18:02 | NUR ---
SHIFT SUMMARY PT REMAINS A&OX4, FOLLOWING ALL COMMANDS, BEEBE. ASSISTED WITH TURNS DURING CHG BEDBATH TODAY. PT HAS NOT URINATED TODAY. TOLERATING PO INTAKE WELL. BLOOD CULTURES DRAWN TODAY. PEREZ SCHEDULED FOR TOMORROW, PT TO BE NPO AFTER MIDNIGHT. PT REMAINS HYPONATREMIC, AFTERNOON NA-115, DR. EDWARDS AND JOSESITO AWARE. NO OTHER ACUTE CHANGES TODAY, WILL MONITOR CLOSELY.
[2023-03-01] VITALS (31 sets, daily range): BP systolic 86–170; BP diastolic 61–113
[2023-03-01 04:43] LABS: BASOPHILS ABSOLUTE AUTO 0.07 K/mm3 (0.00-0.23); BASOPHILS PERCENT AUTO 1 % (0-2); EOSINOPHILS ABSOLUTE AUTO 0.13 K/mm3 (0.00-0.68); EOSINOPHILS PERCENT AUTO 1 % (0-6); Hematocrit 22.9 % (33.0-51.0); Hemoglobin 7.8 g/dL (11.5-16.0); IMMATURE GRAN ABSOLUTE AUTO 0.44 K/mm3 (0.00-0.10); IMMATURE GRAN PERCENT AUTO 3 % (0-1); LYMPHOCYTES ABSOLUTE AUTO 2.84 K/mm3 (0.84-5.20); LYMPHOCYTES PERCENT AUTO 19 % (21-46); MONOCYTES ABSOLUTE AUTO 0.82 K/mm3 (0.16-1.47); MONOCYTES PERCENT AUTO 6 % (4-13); Mean Corpuscular HGB Conc 34.1 g/dL (31.5-36.5); Mean Corpuscular Volume 85 fL (80-100); NEUTROPHILS PERCENT AUTO 71 % (41-73); Platelet Count 294 K/mm3 (150-400); RDW Coefficient Variation 13.8 % (11.7-14.2); Red Blood Cell Count 2.69 M/mm3 (3.80-5.20)
--- NOTE | 2023-03-01 04:49 | NUR ---
PATIENT UP TO BSC WITH MIN ASSIST. USING WALKER FROM HOME. HEART RATE UP TO 131 AND PATIENT SOB WITH ACTIVITY. RECOVERING QUICKLY WHEN BACK TO BED AFTER VOIDING 500 CC OF YELLOW URINE.
[2023-03-01 05:09] LABS: Magnesium, Blood 2.3 mg/dL (1.6-2.4); Uric Acid, Blood 10.5 mg/dL (2.6-6.0)
[2023-03-01 05:32] LABS: Albumin, Blood 1.9 g/dL (3.4-5.0); Anion Gap 16 mmol/L (6-16); Blood Urea Nitrogen 110 mg/dL (8-24); Bun/Creatinine Ratio 10.1 (12.0-20.0); CO2, Blood 19 mmol/L (21-32); Calcium, Blood 8.4 mg/dL (8.5-10.1); Chloride, Blood 81 mmol/L (98-108); Glomerular Filtration Rate 4 (60-); Glucose, Blood 91 mg/dL (70-99); Phosphorus, Blood 8.4 mg/dL (2.5-4.9); Potassium, Blood 5.1 mmol/L (3.5-5.5); Sodium, Blood 116 mmol/L (136-145)
--- NOTE | 2023-03-01 06:29 | NUR ---
SUMMARY PATIENT SLEEPING OFF AND ON T/O NIGHT, AT TIMES HAVING SNORING RESP. AWAKENS TO SLIGHT STIMULI. PATIENT CONTINUES TO VERBALIZE FRUSTRATION WITH BEING IN THE HOSPITAL. PLAN FOR PEREZ AND DIALYSIS LINE PLACEMENT TODAY. SEE NURSE NOTIFY ORDERS.
--- NOTE | 2023-03-01 07:37 | NUR ---
ASSUMED CARE: PT RESTING QUIETLY IN BED. SINUS TACH AT 104 ON TELE AT THIS TIME. [facility] CALLED AND STATED THEY PLAN TO DO PT'S PEREZ WITH ANESTHESIA AND WILL COORDINATE WITH THEM TO DETERMINE TIMING. DR CONNORS AT BEDSIDE TO DO CONSENT FOR PEREZ AT THIS TIME DUE TO PT NOT REMEMBERING A LOT OF THE DETAILS DISCUSSED WITH HER BY DR GARCIA. NO ACUTE NEEDS OR CONCERNS AT THIS TIME.
--- NOTE | 2023-03-01 09:24 | NUR ---
DR LEON CALLED DR AVENDANO TO DISCUSS PT'S DIALYSIS PLANS. DR AVENDANO STATES DIALYSIS NEEDS TO BE DONE TODAY. PLAN IS FOR DR NGUYEN TO COME TO BEDSIDE THIS MORNING TO PERFORM PROCEDURE. CALL TO [facility] TO LET THEM KNOW OF OFFICE TECHNICIAN PLANS. CUSTOMER SERVICE DISPATCHER STATES THEY HAVE NOT HEARD FURTHER PLANS FROM ANESTHESIA AT THIS POINT AND WILL RELAY ANY FURTHER UPDATES THAT THEY HEAR.
--- NOTE | 2023-03-01 10:30 | NUR ---
INTERDISCIPLINARY ROUNDS. DR LEON AWARE OF PT'S NEWEST SET OF BLOOD CULTURES POSITIVE WITH GRAM POSITIVE COCCI. DR STARKEY ROUNDED ON PT AND IS AWARE THAT PT HAD NOT HAD BM IN 9 DAYS. LACTULOSE STARTED AND ADMINISTERED. AWAITING DR NGUYEN FOR MERHERKER PLACEMENT.
--- NOTE | 2023-03-01 13:01 | NUR ---
DR NGUYEN CAME TO BEDSIDE TO PLACE TEMPORARY DIALYSIS CATH. STERILE TECHNIQUE MAINTAIN, NO ECTOPY OR VITAL SIGN CHANGES NOTED DURING PROCEDURE. XRAY TO CONFIRM PLACEMENT. POWER HAMMER OPERATOR AT BEDSIDE DIRECTED BY DR NGUYEN TO GET WAVE FORM WITH TRANSDUCER. CALL TO [facility]ART CENTER TO LET THEM KNOW THAT PLACEMENT IS COMPLETED AND PT IS AVAILABLE FOR PEREZ. [facility]ART [facility]ENTER STAFF WAITING TO HEAR FROM ANESTHESIA. CALL TO DAY SURGERY WHO STATES NO ONE IS AVAILABLE AT THIS TIME AND IF WE COULD CHECK BACK IN AN HOUR.
--- NOTE | 2023-03-01 15:00 | NUR ---
dialysis nurse at bedside at this time.
--- NOTE | 2023-03-01 16:24 | NUR ---
DR LEON INSTRUCTED THIS RN TO HAVE DIALYSIS NURSE START WHILE WE WAITED TO HEAR BACK FROM ANESTHESIA. AT 1600 SCRUM PROJECT MANAGER AND ANESTHESIA CAME TO BEDSIDE AND [facility]W DIALYSIS WAS STILL RUNNING. ANESTHESIOLOGIST LEFT TO SPEAK WITH DR PRESTON WHO WAS PLASTIC BATTERY ASSEMBLER. DR PRESTON CAME TO SEE PT AND STATED HE WOULD CALL DR CONNORS. PLAN IS FOR PEREZ TOMORROW MORNING. ANESTHESIOLOGIST STATED HE WOULD PUT PT ON SCHEDULE. DR CONNORS INSTRUCTED THIS RN TO HAVE PT NPO AT [place].
--- NOTE | 2023-03-01 18:13 | NUR ---
SHIFT SUMMARY: PT HAD TEMPORARY DIALYSIS CATH PLACED AND 1.5L OF FLUID REMOVED DURING DIALYSIS. PT BECAME TACHYCARDIC WITH HR IN 130S. 1L FLUID BEING GIVEN OVER [address] ORDERS OF [address] LEON. PT HR RESPONDING AND IS CURRENTLY 112. DR LEON AND HOT BOX CHECKER AWARE THAT PT HAS NOT VOIDED ALL SHIFT. PLANS FOR PEREZ WITH ANESTHESIA TOMORROW.
[2023-03-01 19:44] LABS: Albumin, Blood 2.1 g/dL (3.4-5.0); Anion Gap 16 mmol/L (6-16); Blood Urea Nitrogen 72 mg/dL (8-24); Bun/Creatinine Ratio 9.2 (12.0-20.0); CO2, Blood 22 mmol/L (21-32); Calcium, Blood 8.7 mg/dL (8.5-10.1); Chloride, Blood 84 mmol/L (98-108); Creatinine, Blood 7.82 mg/dL (0.40-1.00); Glomerular Filtration Rate 6 (60-); Glucose, Blood 136 mg/dL (70-99); Phosphorus, Blood 8.5 mg/dL (2.5-4.9); Potassium, Blood 4.3 mmol/L (3.5-5.5); Sodium, Blood 122 mmol/L (136-145)
--- NOTE | 2023-03-01 20:47 | NUR ---
PATIENT RESTING QUIETLY IN BED, C/O PAIN WITH SLIGHT MOVEMENT, CHEST TENDER AROUND LINE PLACEMENT. AREA SOFT NO SWELLING OR BRUISING SEEN. DRESSING CD&I TO RIGHT CHEST WALL, TRIALYSIS CATH TO LEFT CHEST INTACT PIGGY LINE FLUSHED WITH NO DIFFICULTY. POWER GLIDE TO LEFT UPPER ARM CONTINUES TO BE POSITIONAL. DOCTOR JUAN ALBERTO NOTIFIED OF POST DIALYSIS LABS AT 1946. CONTINUE 1L FLUID RESTRICTION.
[2023-03-02] VITALS (43 sets, daily range): BP systolic 74–154; BP diastolic 45–118
[2023-03-02 05:03] LABS: Hematocrit 21.6 % (33.0-51.0); Hemoglobin 7.3 g/dL (11.5-16.0)
[2023-03-02 05:50] LABS: Magnesium, Blood 2.2 mg/dL (1.6-2.4)
[2023-03-02 06:06] LABS: Albumin, Blood 1.9 g/dL (3.4-5.0); Anion Gap 15 mmol/L (6-16); Blood Urea Nitrogen 77 mg/dL (8-24); Bun/Creatinine Ratio 9.6 (12.0-20.0); CO2, Blood 22 mmol/L (21-32); Calcium, Blood 8.5 mg/dL (8.5-10.1); Chloride, Blood 86 mmol/L (98-108); Creatinine, Blood 8.06 mg/dL (0.40-1.00); Glomerular Filtration Rate 6 (60-); Glucose, Blood 109 mg/dL (70-99); Phosphorus, Blood 8.9 mg/dL (2.5-4.9); Potassium, Blood 4.2 mmol/L (3.5-5.5); Sodium, Blood 123 mmol/L (136-145)
--- NOTE | 2023-03-02 06:22 | NUR ---
SUMMARY PATIENT SLEEPING OFF AND ON T/O NIGHT. CONTINUES TO HAVE GENERALIZED, MAINLY BACK PAIN MEDICATED PER EMAR. DRESSING TO RIGHT CHEST REMAINS CD&I, TRIALYSIS CATH TO LEFT CHEST PIGGY LINE USED FOR IV MEDICATIONS. ABLE TO DRAW AM LABS VIA POWER GLIDE WITHOUT DIFFICULTY. PLAN FOR PEREZ THIS AM.
--- NOTE | 2023-03-02 06:44 | NUR ---
DOCTOR JUAN ALBERTO IN TO SEE PATIENT, AWARE OF AM LABS, PLAN FOR DIALYSIS TODAY
--- NOTE | 2023-03-02 08:00 | NUR ---
INITIAL ASSESSMENT PATIENT ALERT AND ORIENTED X 4, AFEBRILE. PATIENT WEAK, 1 PA TO [facility] [place] HOME WALKER. PATIENT COMPLAINS OF "ALL OVER" PAIN BUT STATES IT IS MOSTLY IN HER BACK. PATIENT SATTING 90% AND GREATER ON RA. LUNGS CLEAR IN UPPER LOBES AND DIMINISHED IN LOWER LOBES. PATIENT IN ST, HR LOW 100S TO 1-TEENS. SBP 120S TO 150S. ABD TENDER AND WITH MODERATE DISTENTION. DIALYSIS PATIENT. PATIENT STATES SHE STILL VOIDS 3 TO 4 TIMES PER DAY. IV SALINE LOCKED. PATIENT NPO AT THIS TIME FOR PENDING PEREZ PROCEDURE THIS AM. BED LOW, CALL LIGHT IN REACH. WILL CONTINUE TO MONITOR PATIENT FREQUENTLY THROUGHOUT SHIFT.
--- NOTE | 2023-03-02 14:00 | NUR ---
PATIENT AFEBRILE. HR 90S TO LOW 100S. SBP LOW 100S TO 120S. NO OTHER ACUTE CHANGES TO NOTE ON AT THIS TIME. WILL CONTINUE TO MONITOR.
--- NOTE | 2023-03-02 16:53 | NUR ---
PATIENT AFEBRILE. HR 90S TO LOW 100S. SBP IN THE 140S. PATIENT RECEIVING DIALYSIS AT THIS TIME. NO COMPLAINTS. WILL CONTINUE TO MONITOR.
[2023-03-02 17:21] LABS: Hematocrit 21.3 % (33.0-51.0); Hemoglobin 7.2 g/dL (11.5-16.0)
--- NOTE | 2023-03-02 18:49 | NUR ---
SHIFT SUMMARY PATIENT REMAINED ALERT AND ORIENTED X 4, AFEBRILE. PATIENT REMAINED 1 PERSON ASSIST WITH HOME WALKER TO BEDSIDE COMMODE. OT WORKED WITH PATIENT THIS SHIFT. PATIENT REFUSED PT. PATIENT RECEIVED PRN NORCO AND TYLENOL TWICE THIS SHIFT FOR COMPLAINTS OF PAIN "ALL OVER". PATIENT REMAINED ON RA. PATIENT IN SR TO ST, HR 90S TO 120S. SBP 70S TO 150S. PATIENT HYPOTENSIVE DURING DIALYSIS. ONE DARK GREEN BM THIS SHIFT. 450 MLS OF URINE OUTPUT THIS SHIFT. NO CHANGES TO SKIN NOTED. PEREZ PERFORMED THIS SHIFT. CHG BATH PERFORMED THIS SHIFT. DIALYSIS CONTINUES AT THIS TIME. TRIALYSIS CATH TO BE PULLED AFTER DIALYSIS COMPLETED. NO COVERAGE INDICATED FOR BLOOD SUGARS THIS SHIFT. BED LOW, CALL LIGHT IN REACH. NO COMPLAINTS AT THIS TIME. REPORT WILL BE GIVEN TO ASSUMING RECONCILIATION MANAGER NURSE SHORTLY.
--- NOTE | 2023-03-02 20:27 | NUR ---
TRIALYSIS CATHETER REMOVED PER ORDER AT 2014. CATHETER TIP INTACT. OCCLUSIVE DRESSING PLACED.
--- NOTE | 2023-03-02 22:18 | NUR ---
REPORT GIVEN TO DIANA. PATIENT TX TO 308.
--- NOTE | 2023-03-03 00:29 | NUR ---
PT ARRIVED 2240 VIA BED FROM ICU, PT ABLE TO USE WALKER AND TRANSFER TO FLOOR BED. PT ORIENTED TO ROOM, CALL LIGHT IN REACH.
[2023-03-03 03:44] VITALS: BP 132/72
[2023-03-03 07:30] VITALS: BP 137/66
[2023-03-03 08:24] LABS: BASOPHILS ABSOLUTE AUTO 0.07 K/mm3 (0.00-0.23); BASOPHILS PERCENT AUTO 1 % (0-2); EOSINOPHILS ABSOLUTE AUTO 0.09 K/mm3 (0.00-0.68); EOSINOPHILS PERCENT AUTO 1 % (0-6); Hematocrit 19.2 % (33.0-51.0); Hemoglobin 6.4 g/dL (11.5-16.0); IMMATURE GRAN ABSOLUTE AUTO 0.29 K/mm3 (0.00-0.10); IMMATURE GRAN PERCENT AUTO 2 % (0-1); LYMPHOCYTES ABSOLUTE AUTO 2.59 K/mm3 (0.84-5.20); LYMPHOCYTES PERCENT AUTO 22 % (21-46); MONOCYTES ABSOLUTE AUTO 0.77 K/mm3 (0.16-1.47); MONOCYTES PERCENT AUTO 6 % (4-13); Mean Corpuscular HGB Conc 33.3 g/dL (31.5-36.5); Mean Corpuscular Volume 87 fL (80-100); Mean Platelet Volume 10.7 fL (9.1-12.4); NEUTROPHILS ABSOLUTE AUTO 8.23 K/mm3 (1.96-9.15); NEUTROPHILS PERCENT AUTO 68 % (41-73); Platelet Count 308 K/mm3 (150-400); RDW Coefficient Variation 13.8 % (11.7-14.2); RDW Standard Deviation 43.6 fL (35.1-46.3); Red Blood Cell Count 2.21 M/mm3 (3.80-5.20); White Blood Cell Count 12.04 K/mm3 (4.00-11.30)
[2023-03-03 08:45] LABS: Anion Gap 10 mmol/L (6-16); Blood Urea Nitrogen 51 mg/dL (8-24); Bun/Creatinine Ratio 8.6 (12.0-20.0); CO2, Blood 27 mmol/L (21-32); Calcium, Blood 8.6 mg/dL (8.5-10.1); Chloride, Blood 90 mmol/L (98-108); Creatinine, Blood 5.92 mg/dL (0.40-1.00); Glomerular Filtration Rate 8 (60-); Glucose, Blood 132 mg/dL (70-99); Magnesium, Blood 2.1 mg/dL (1.6-2.4); Phosphorus, Blood 7.6 mg/dL (2.5-4.9); Potassium, Blood 4.3 mmol/L (3.5-5.5); Sodium, Blood 127 mmol/L (136-145)
--- NOTE | 2023-03-03 15:56 | NUR ---
Pt. is awake and sitting in a recliner when she welcomes my visit. Pt. is alone and is unsettled by pain in her "sciatica." Listen with empathy and a calming presence. Pt. displays evidence of trust, and engagement. Facilitated a life review and considered matters of anne and belief. Pt. displayed evidence of being comforted. Prayed with Pt. Pt. verbalized gratitude for the spiritual care visit.
[2023-03-03 16:40] VITALS: BP 139/75
--- NOTE | 2023-03-03 17:13 | NUR ---
AM ASSESSMENT I WAS PRESENT DURING AND AGREE WITH THE STUDENT RN LUPE'S AM ASSESSMENT AND DOCUMENTATION ON THIS PT
--- NOTE | 2023-03-03 17:27 | NUR ---
PT IS A/OX4, PLEASANT AND COOPERATIVE. THE PT IS UP WITH MINIMAL ASSIST TO THE CHAIR. THE PT WAS UP IN THE RECLINER TODAY FOR A ABOUT 3 HOURS. THE PT CONTINUES TO REPORT PAIN EVERYWHERE BUT MAINLY IN HER BACK. THE PT WAS MEDICATED FOR PAIN T/O THE DAY. PT APPEARS TO BE BREATHING EASILY AT REST. THE PT WORKED WITH BOTH THE PHYSICAL AND OCCUPATIONAL THERAPIST TODAY. CALL LIGHT IN REACH, WILL CONTINUE TO MONITOR AND ASSESS FOR CHANGES
[2023-03-03 20:26] VITALS: BP 144/66
[2023-03-04] VITALS (7 sets, daily range): BP systolic 143–183; BP diastolic 76–88
--- NOTE | 2023-03-04 04:08 | NUR ---
SHIFT SUMMARY PATIENT HAD NO ACUTE CHANGES. AXOX 4 AND ONE ASSIST TO BSC. PIV REMAINS INTACT. IV ABX INFUSED. CBG 157. TELE MONITOR NSR @ 98. FLUID RESTRICTION 1,000 mL. DENIES CHEST PAIN, SOB, AND N/V. REPORTED GENERAL BACK/HIP PAIN X 2 AND OXYCODONE 5 MG GIVEN PER EMAR. VSS/AFEBRILE. CALL LIGHT IN REACH. BED IN LOWEST POSITION. WILL CONTINUE TO MONITOR UNTIL DAY SHIFT NURSE ASSUMES CARE.
[2023-03-04 05:01] LABS: Hematocrit 19.7 % (33.0-51.0); Hemoglobin 6.5 g/dL (11.5-16.0)
[2023-03-04 05:27] LABS: Albumin, Blood 2.1 g/dL (3.4-5.0); Anion Gap 12 mmol/L (6-16); Blood Urea Nitrogen 59 mg/dL (8-24); Bun/Creatinine Ratio 8.8 (12.0-20.0); CO2, Blood 26 mmol/L (21-32); Calcium, Blood 8.8 mg/dL (8.5-10.1); Chloride, Blood 88 mmol/L (98-108); Creatinine, Blood 6.74 mg/dL (0.40-1.00); Glomerular Filtration Rate 7 (60-); Glucose, Blood 144 mg/dL (70-99); Magnesium, Blood 2.3 mg/dL (1.6-2.4); Phosphorus, Blood 7.9 mg/dL (2.5-4.9); Potassium, Blood 4.9 mmol/L (3.5-5.5); Sodium, Blood 126 mmol/L (136-145)
--- NOTE | 2023-03-04 08:58 | NUR ---
dr. powers called and reported barrium swallow test was clear, no foreign body found. pt needs to be on full liquid to mech soft diet when discharged. pt can go home and resume xarelto. pt needs to set up outpt appt with dr. rowan for egd and colonoscopy. dr. garrison notified.
--- NOTE | 2023-03-04 15:08 | NUR ---
WOUND CARE ALL WOUNDS CONTINUE TO IMPROVE. DC HYDROGEL TO BL GREAT TOES. POLYMEN FOAM CLOTH DOT ONLY. SMALL STAGE 3 PI TO COCCYX HAS CLOSED. CONTINUE FOAM TO PROTECT. BL HEELS REMAIN INTACT.
--- NOTE | 2023-03-04 17:39 | NUR ---
SHIFT SUMMARY: Pt remains A7O x3 this shift.VSS, pain managed with current po regime. Up to bathroom with SBA and wheeled walker. Easily fatigued with ambulation. Resp even nonlabored on RA. [place] IV to left arm dc'd, managed care provider restarted glide right arm. 1 U PRBC infusing without difficulty. Will continue to monitor.
[2023-03-05] VITALS (19 sets, daily range): BP systolic 123–195; BP diastolic 66–809
--- NOTE | 2023-03-05 04:24 | NUR ---
SHIFT SUMMARY PATIENT HAD NO ACUTE CHANGES. AXOX 4 AND ONE ASSIST W/FWW TO BSC. DENIES CHEST PAIN, SOB, AND N/V. REPORTED BACK PAIN AND OXYCODONE 5 MG GIVEN PER EMAR. POWERGLIDE RIGHT ARM INTACT. IV ABXS INFUSED. VSS/AFEBRILE. CBG 117. TELE MONITOR ST 102. ON ROOM AIR. FLUID RESTRICTIONS 1,000 mL. CALL LIGHT IN REACH. BED IN LOWEST POSITION. WILL CONTINUE TO MONITOR UNTIL DAY SHIFT NURSE ASSUMES CARE.
[2023-03-05 04:29] LABS: Hematocrit 22.4 % (33.0-51.0); Hemoglobin 7.6 g/dL (11.5-16.0)
[2023-03-05 04:56] LABS: Magnesium, Blood 2.2 mg/dL (1.6-2.4)
[2023-03-05 05:09] LABS: Albumin, Blood 2.1 g/dL (3.4-5.0); Anion Gap 11 mmol/L (6-16); Blood Urea Nitrogen 61 mg/dL (8-24); Bun/Creatinine Ratio 7.9 (12.0-20.0); CO2, Blood 26 mmol/L (21-32); Calcium, Blood 8.9 mg/dL (8.5-10.1); Chloride, Blood 88 mmol/L (98-108); Glomerular Filtration Rate 6 (60-); Glucose, Blood 111 mg/dL (70-99); Potassium, Blood 4.8 mmol/L (3.5-5.5); Sodium, Blood 125 mmol/L (136-145)
[2023-03-05 06:34] LABS: BASOPHILS ABSOLUTE AUTO 0.14 K/mm3 (0.00-0.23); BASOPHILS PERCENT AUTO 1 % (0-2); EOSINOPHILS ABSOLUTE AUTO 0.13 K/mm3 (0.00-0.68); EOSINOPHILS PERCENT AUTO 1 % (0-6); Hematocrit 22.4 % (33.0-51.0); Hemoglobin 7.6 g/dL (11.5-16.0); IMMATURE GRAN ABSOLUTE AUTO 0.23 K/mm3 (0.00-0.10); IMMATURE GRAN PERCENT AUTO 2 % (0-1); LYMPHOCYTES ABSOLUTE AUTO 2.55 K/mm3 (0.84-5.20); LYMPHOCYTES PERCENT AUTO 22 % (21-46); MONOCYTES ABSOLUTE AUTO 0.63 K/mm3 (0.16-1.47); MONOCYTES PERCENT AUTO 5 % (4-13); Mean Corpuscular HGB 29.3 pg (26.0-34.0); Mean Corpuscular HGB Conc 33.9 g/dL (31.5-36.5); Mean Corpuscular Volume 87 fL (80-100); Mean Platelet Volume 10.2 fL (9.1-12.4); NEUTROPHILS ABSOLUTE AUTO 8.08 K/mm3 (1.96-9.15); NEUTROPHILS PERCENT AUTO 69 % (41-73); Platelet Count 385 K/mm3 (150-400); Red Blood Cell Count 2.59 M/mm3 (3.80-5.20); White Blood Cell Count 11.76 K/mm3 (4.00-11.30)
--- NOTE | 2023-03-05 11:30 | NUR ---
PATIENT UNABLE TO VOID USING BED BARBA. BLADDER SCAN SHOWED 510ML URINE. WILL NOTIFY DR MONCADA.
--- NOTE | 2023-03-05 11:46 | NUR ---
DR MONCADA NOTIFIED OF PATIENT URINE RETENSION AND DISCOMFORT ASSOCIATED WITH RETNSION. ORDER OBTAINED FROM DR MNOCADA TO INSERT CASTAÑEDA CATHETER. REPORT GIVEN TO CLARI CORTEZ RN, WHO WILL INSERT CATHETER PER ORDER.
--- NOTE | 2023-03-05 12:55 | NUR ---
CENTRAL MONITORED TELE D/C'D FOR SURGERY.
--- NOTE | 2023-03-05 14:17 | NUR ---
03/05/23 1417 Charis Dalton PERMACATRene FLUSHED AT END OF CASE WITH 2.1ML OF 5,000U/ML HEPARIN (X2) BY SURGEON
--- NOTE | 2023-03-05 15:51 | NUR ---
Received phone call from ultrasound of DVT to right jugular vein and SVT right cephallic vein. Voice mail left for Dr. Callejas [phone]. Will await call back.
--- NOTE | 2023-03-05 16:00 | NUR ---
Received phone call back from Dr. Callejas communicating ultrasound results. No further orders at this time. Pt remains in HD at this time.
--- NOTE | 2023-03-05 18:05 | NUR ---
SUMMARY NOTE: Pt off unit from 11am, received back to unit at 1750 post HD catheter insert and HD. Pt awake and alert, denies pain. Verbalizes clearly she is hungry. Dinner tray set up and feeding self. VSS, Resp even nonlabored, CTA. Indwelling chen inserted while off unit. Clear yellow output noted. No needs or c/o verbalized. Will continue to follow this shift.
[2023-03-06] VITALS (13 sets, daily range): BP systolic 79–173; BP diastolic 50–96
[2023-03-06 00:24] LABS: Anti-Xa UFH, PHA Monitoring <0.10 IU/mL; International Normalized Ratio 0.98; Prothrombin Time Results 10.3 Sec (9.7-11.5)
--- NOTE | 2023-03-06 04:30 | NUR ---
SHIFT SUMMARY NOC PT A/O X 4. PT STILL ON 3L/NC. SBA WITH FWW AND UNSTEADY GAIT AT TIMES. PT ON Q6H ABX TREATMENT. PERMACATH IN PLACE IN LUCW DRESSING IS HAS SOME BLOOD ON IT AND NEEDS CHANGING BY DIALYSIS NURSE. PT STARTED ON HEPARIN DRIP @ 25.2 MLS/HR FOR R IJ DVT. PT HGB WAS 7.6 YESTERDAY AND 1 UNIT OF PRBC IS READY IF AM LAB VALUE DROPS BELOW 7.0. PT ON TELE RUNNING ST @ 114 BPM. PT HAD ELEVATED BP FOR EVENING VS AND IV HYDRALAZINE GIVEN. FLUID RESTRICTION OF 1L A DAY STILL IN EFFECT. PT IS CURRENTLY RESTING WITH BED IN LOWEST POSITION, AND CALL LIGHT WITHIN REACH.
--- NOTE | 2023-03-06 05:00 | NUR ---
SHIFT SUMMARY NOC PT A/O X 4. PT STILL ON 3L/NC. SBA WITH FWW AND UNSTEADY GAIT AT TIMES. PT ON Q6H ABX TREATMENT. PERMACATH IN PLACE IN LUCW DRESSING IS HAS SOME BLOOD ON IT AND NEEDS CHANGING BY DIALYSIS NURSE. PT STARTED ON HEPARIN DRIP @ 25.2 MLS/HR FOR R IJ DVT. PT HGB WAS 7.6 YESTERDAY AND 1 UNIT OF PRBC IS READY IF AM LAB VALUE DROPS BELOW 7.0. PT ON TELE RUNNING ST @ 114 BPM. PT HAD ELEVATED BP FOR EVENING VS AND IV HYDRALAZINE GIVEN. CASTAÑEDA IN PLACE DRAINING YELLOW URINE TO GRAVITY. FLUID RESTRICTION OF 1L A DAY STILL IN EFFECT. PT IS CURRENTLY RESTING WITH BED IN LOWEST POSITION, AND CALL LIGHT WITHIN REACH.
[2023-03-06 05:44] LABS: BASOPHILS ABSOLUTE AUTO 0.12 K/mm3 (0.00-0.23); BASOPHILS PERCENT AUTO 1 % (0-2); EOSINOPHILS ABSOLUTE AUTO 0.03 K/mm3 (0.00-0.68); EOSINOPHILS PERCENT AUTO 0 % (0-6); Hematocrit 22.9 % (33.0-51.0); IMMATURE GRAN ABSOLUTE AUTO 0.33 K/mm3 (0.00-0.10); IMMATURE GRAN PERCENT AUTO 3 % (0-1); LYMPHOCYTES ABSOLUTE AUTO 2.36 K/mm3 (0.84-5.20); LYMPHOCYTES PERCENT AUTO 23 % (21-46); MONOCYTES ABSOLUTE AUTO 0.64 K/mm3 (0.16-1.47); MONOCYTES PERCENT AUTO 6 % (4-13); Mean Corpuscular HGB 29.3 pg (26.0-34.0); Mean Corpuscular HGB Conc 34.9 g/dL (31.5-36.5); Mean Corpuscular Volume 84 fL (80-100); Mean Platelet Volume 10.5 fL (9.1-12.4); NEUTROPHILS ABSOLUTE AUTO 6.99 K/mm3 (1.96-9.15); NEUTROPHILS PERCENT AUTO 67 % (41-73); Platelet Count 328 K/mm3 (150-400); RDW Coefficient Variation 13.8 % (11.7-14.2); RDW Standard Deviation 42.5 fL (35.1-46.3); Red Blood Cell Count 2.73 M/mm3 (3.80-5.20); White Blood Cell Count 10.47 K/mm3 (4.00-11.30)
[2023-03-06 06:23] LABS: Albumin, Blood 1.9 g/dL (3.4-5.0); Anion Gap 12 mmol/L (6-16); Blood Urea Nitrogen 50 mg/dL (8-24); CO2, Blood 24 mmol/L (21-32); Calcium, Blood 8.6 mg/dL (8.5-10.1); Chloride, Blood 92 mmol/L (98-108); Creatinine, Blood 6.26 mg/dL (0.40-1.00); Glomerular Filtration Rate 8 (60-); Glucose, Blood 151 mg/dL (70-99); Magnesium, Blood 2.2 mg/dL (1.6-2.4); Phosphorus, Blood 7.3 mg/dL (2.5-4.9); Potassium, Blood 4.5 mmol/L (3.5-5.5); Sodium, Blood 128 mmol/L (136-145)
--- NOTE | 2023-03-06 18:24 | NUR ---
SHIFT SUMMARY: PT A&O X4. PT PLEASANT AND COOPERATIVE WITH ALL CARE. PT RECEIVED DIALYSIS FROM AROUND 0930 TO 1300 THIS SHIFT AND TOLERATED WELL. PT SLIGHTLY HYPOTENSIVE FOLLOWING DIALYSIS. PT C/O PAIN ONCE THIS SHIFT IN SCIATIC. MEDICATED PER EMAR. OXACILLIN GIVEN Q6. HGB THIS MORNING 8.0. TRANSFUSION NOT NEEDED THIS SHIFT. HEPARIN RUNNING @ 18U/KG/HR @ 25.2. FLUID RESTRICTION INCREASED TO 1500 FROM 1000. GARRY D/C. PT STATING SHE IS LIKELY GOING HOME TOMORROW. CALL LIGHT IN REACH. BED IN LOWEST POSITION. WILL CONTINUE TO MONITOR.
[2023-03-07] VITALS (14 sets, daily range): BP systolic 128–165; BP diastolic 70–92
[2023-03-07 05:24] LABS: Hematocrit 21.3 % (33.0-51.0); Hemoglobin 6.9 g/dL (11.5-16.0)
[2023-03-07 06:00] LABS: Albumin, Blood 1.9 g/dL (3.4-5.0); Anion Gap 9 mmol/L (6-16); Blood Urea Nitrogen 37 mg/dL (8-24); Bun/Creatinine Ratio 7.1 (12.0-20.0); CO2, Blood 29 mmol/L (21-32); Calcium, Blood 8.6 mg/dL (8.5-10.1); Chloride, Blood 92 mmol/L (98-108); Creatinine, Blood 5.22 mg/dL (0.40-1.00); Glomerular Filtration Rate 10 (60-); Glucose, Blood 125 mg/dL (70-99); Magnesium, Blood 2.1 mg/dL (1.6-2.4); Phosphorus, Blood 5.7 mg/dL (2.5-4.9); Potassium, Blood 3.8 mmol/L (3.5-5.5); Sodium, Blood 130 mmol/L (136-145)
[2023-03-07 11:48] LABS: Percent Saturation 31.3 % (15.0-50.0)
--- NOTE | 2023-03-07 19:24 | NUR ---
SHIFT SUMMARY PT AXO AND COOPERATIVE WITH CARE. VSS. PT ON TELE, SINUS TACH. PT HAD DIALYSIS THIS SHIFT, 1 UNIT PRBC'S ADMINISTERED AT THAT TIME. STOOL SAMPLE COLLECTED, AWAITING RESULTS. PT HAD SHOWER TODAY AFTER MUCH ENCOURAGEMENT FROM THIS NURSE. PT MEDICATED FOR PAIN X2 THIS SHIFT. IV PATENT AND SALINE LOCKED. REPORT GIVEN TO PLASTIC SHAPER NURSE WHO ASSUMES CARE AT THIS TIME. BED IN LOW POSITION, CALL LIGHT WITHIN REACH.
[2023-03-08 04:11] VITALS: BP 184/94
[2023-03-08 05:03] LABS: BASOPHILS ABSOLUTE AUTO 0.14 K/mm3 (0.00-0.23); BASOPHILS PERCENT AUTO 1 % (0-2); EOSINOPHILS ABSOLUTE AUTO 0.11 K/mm3 (0.00-0.68); EOSINOPHILS PERCENT AUTO 1 % (0-6); Hematocrit 23.4 % (33.0-51.0); Hemoglobin 7.6 g/dL (11.5-16.0); IMMATURE GRAN ABSOLUTE AUTO 0.16 K/mm3 (0.00-0.10); IMMATURE GRAN PERCENT AUTO 1 % (0-1); LYMPHOCYTES ABSOLUTE AUTO 2.78 K/mm3 (0.84-5.20); LYMPHOCYTES PERCENT AUTO 25 % (21-46); MONOCYTES ABSOLUTE AUTO 0.83 K/mm3 (0.16-1.47); MONOCYTES PERCENT AUTO 8 % (4-13); Mean Corpuscular HGB 28.5 pg (26.0-34.0); Mean Corpuscular HGB Conc 32.5 g/dL (31.5-36.5); Mean Corpuscular Volume 88 fL (80-100); Mean Platelet Volume 9.9 fL (9.1-12.4); NEUTROPHILS ABSOLUTE AUTO 7.04 K/mm3 (1.96-9.15); NEUTROPHILS PERCENT AUTO 64 % (41-73); Platelet Count 277 K/mm3 (150-400); RDW Coefficient Variation 14.9 % (11.7-14.2); RDW Standard Deviation 47.9 fL (35.1-46.3); Red Blood Cell Count 2.67 M/mm3 (3.80-5.20); White Blood Cell Count 11.06 K/mm3 (4.00-11.30)
[2023-03-08 05:28] LABS: Anion Gap 8 mmol/L (6-16); Blood Urea Nitrogen 32 mg/dL (8-24); Bun/Creatinine Ratio 6.9 (12.0-20.0); CO2, Blood 31 mmol/L (21-32); Calcium, Blood 8.7 mg/dL (8.5-10.1); Chloride, Blood 95 mmol/L (98-108); Creatinine, Blood 4.61 mg/dL (0.40-1.00); Glomerular Filtration Rate 11 (60-); Glucose, Blood 118 mg/dL (70-99); Phosphorus, Blood 4.1 mg/dL (2.5-4.9); Potassium, Blood 3.5 mmol/L (3.5-5.5); Sodium, Blood 134 mmol/L (136-145)
--- NOTE | 2023-03-08 06:32 | NUR ---
INCREASED SCIATICA PAIN WITH AMBULATION, X1 ASSIST TO TOILET. AO, PLEASANT, VSS, UNEVENTFUL NIGHT. TOLERATING CARES. NO SIGNIFICANT CHANGES NOTED FROM REPORT.
[2023-03-08 07:33] VITALS: BP 158/84
[2023-03-08 07:55] LABS: Stool Occult Blood Guaiac 1 Neg (Neg)
[2023-03-08 15:46] VITALS: BP 170/88
[2023-03-08 16:59] VITALS: BP 157/77
--- NOTE | 2023-03-08 17:32 | NUR ---
SHIFT SUMMARY: PT UNMOTIVATED TO PARTICIPATE IN CARE. SHE STATES SHE IS TIRED AND WANTS TO SLEEP. PAIN MANAGED PER MAR. FLAT AFFECT. REDNESS ON COCCYX BLANCHABLE AND COVERED WITH A MEPILEX. PT CONT ON URINE. 1P BSC DUE TO WEAKNESS. MEDS WHOLE WITH WATER. PLAN IS TO DISCHARGE HOME TOMORROW PER INSPECTOR AND MENDER.
[2023-03-09] VITALS (32 sets, daily range): BP systolic 67–215; BP diastolic 46–125
[2023-03-09 05:38] LABS: BASOPHILS ABSOLUTE AUTO 0.12 K/mm3 (0.00-0.23); BASOPHILS PERCENT AUTO 1 % (0-2); EOSINOPHILS ABSOLUTE AUTO 0.13 K/mm3 (0.00-0.68); EOSINOPHILS PERCENT AUTO 1 % (0-6); Hemoglobin 7.5 g/dL (11.5-16.0); IMMATURE GRAN ABSOLUTE AUTO 0.15 K/mm3 (0.00-0.10); IMMATURE GRAN PERCENT AUTO 1 % (0-1); LYMPHOCYTES ABSOLUTE AUTO 2.03 K/mm3 (0.84-5.20); LYMPHOCYTES PERCENT AUTO 17 % (21-46); MONOCYTES ABSOLUTE AUTO 0.82 K/mm3 (0.16-1.47); MONOCYTES PERCENT AUTO 7 % (4-13); Mean Corpuscular HGB 28.8 pg (26.0-34.0); Mean Corpuscular HGB Conc 32.6 g/dL (31.5-36.5); Mean Corpuscular Volume 89 fL (80-100); Mean Platelet Volume 9.5 fL (9.1-12.4); NEUTROPHILS ABSOLUTE AUTO 8.53 K/mm3 (1.96-9.15); NEUTROPHILS PERCENT AUTO 72 % (41-73); Platelet Count 242 K/mm3 (150-400); RDW Coefficient Variation 14.8 % (11.7-14.2); RDW Standard Deviation 47.7 fL (35.1-46.3); White Blood Cell Count 11.78 K/mm3 (4.00-11.30)
[2023-03-09 06:02] LABS: Albumin/Globulin Ratio 0.5 (0.8-1.8); Bilirubin, Total 0.3 mg/dL (0.1-1.0); Bun/Creatinine Ratio 7.4 (12.0-20.0); C-REACTIVE PROTEIN, EXT RANGE 12.5 mg/dL (0.000-0.300); Calcium, Blood 8.8 mg/dL (8.5-10.1); Creatinine, Blood 5.8 mg/dL (0.40-1.00); Globulin, Blood 4.1 g/dL (2.2-4.0); Potassium, Blood 3.3 mmol/L (3.5-5.5); Total Protein, Blood 6.1 g/dL (6.4-8.2)
--- NOTE | 2023-03-09 06:26 | NUR ---
AO, HYPERTENSIVE BUT VSS ON RA, X1 ASSIST WITH WALKER. INCREASED PAIN WITH ACTIVITY MEDICATED FOR SCIATICA PAIN WITH TYLENOL, FLEXERIL AND OXYCODONE. CALLS APPROPRIATELY, NO EVENTS OVER NIGHT.
--- NOTE | 2023-03-09 17:17 | NUR ---
DAYSHIFT SUMMARY No acute changes to patient status. Dialysis this morning. PT attempted to work with patient this afternoon, patient declined therapy. CBGs stable, SSI administred, vitals stable. Will continue plan of care.
--- NOTE | 2023-03-09 18:26 | NUR ---
Pt. is awake and welcomes my visit. Pt. is unsettled about the prospect of going to rehab. Listen with empathy and a calming presence as I seek to normalize the Pt. experience. Pt. displays evidence of not being motivated to do phyical therapy. Consider matters of anne and belief. Prayed with Pt. Pt. verbalized gratitude for the [facility] visit.
--- NOTE | 2023-03-09 21:55 | NUR ---
PT CALLED, TOOL REPAIRER ANSWERED CALL LIGHT. TOOL REPAIRER THEN IMMEDIATLEY ALERTED ME THAT I NEEDED TO COME TO THE ROOM BECAUSE THE PT WAS VOMITING. UPON ENTERING ROOM PT WAS VOMITING BRIGHT RED BLOOD AND WAS VERY SHORT OF BREATH. PLACED THE PT ON NC MAXED OUT ON O2. PLACED THE PT ON O2 MONITORING AND FOUND THAT SHE WAS ONLY SATING 45% ON 15L NC. IT WAS AT THIS POINT WE CALLED A RAPID RESPONSE AND THEN QUICKLY TURNED IT INTO A CODE @2128. RESPIRATORY THERAPIST ARRIVED AND PLACED THE PT ON NON-REBREATHER, THEN THE PT WAS BAGGED AND THEN INTUBATED. ONCE INTUBATED WE TRANSFERED THE PT TO ICU ROOM 3 AT 2154. REPORT WAS GIVEN TO MARIBELL HORNE AT THAT TIME. WHILE TRANSFERED THE PT TO ICU I WAS CONTACTED AND NOTIFIED THAT WHEN MY TOOL REPAIRER HAS FIRST WENT INTO THE PTS ROOM HE SAW A VAPE DEVICE IN THE PTS HAND. I CALLED THE PTS SPOUSE TO NOTIFY THEM THAT THE PT HAD EXPERIENCED AN EVENT AND NOW IS IN THE ICU, I ALSO GAVE THE ICU'S NUMBER TO THE PTS SPOUSE SO THAT HE CAN CONTACT ICU NURSE WITH ANY FURTHER QUESTIONS.
[2023-03-09 22:17] LABS: Base Excess Venous 3.3 mmol/L; Bicarbonate Venous 26.7 mmol/L (24.0-30.0); PO2 Venous 93.8 mmHg (38-42); pH Blood Venous 7.33 (7.34-7.37)
[2023-03-09 22:22] LABS: PCO2 Arterial 62.2 mmHg (35-45); PO2 Arterial 146 mmHg (80-100)
[2023-03-09 22:23] LABS: Hematocrit 28.4 % (33.0-51.0); Hemoglobin 8.8 g/dL (11.5-16.0); Mean Corpuscular HGB 28.6 pg (26.0-34.0); Mean Corpuscular Volume 92 fL (80-100); Mean Platelet Volume 9.8 fL (9.1-12.4); Platelet Count 314 K/mm3 (150-400); RDW Standard Deviation 49.9 fL (35.1-46.3); Red Blood Cell Count 3.08 M/mm3 (3.80-5.20); White Blood Cell Count 14.08 K/mm3 (4.00-11.30)
[2023-03-09 22:37] LABS: Anti-Xa UFH, PHA Monitoring 0.96 IU/mL; International Normalized Ratio 1.04; Prothrombin Time Results 10.9 Sec (9.7-11.5)
[2023-03-09 22:41] LABS: Albumin, Blood 2.2 g/dL (3.4-5.0); Albumin/Globulin Ratio 0.4 (0.8-1.8); Bilirubin, Total 0.2 mg/dL (0.1-1.0); Bun/Creatinine Ratio 7.1 (12.0-20.0); Calcium, Blood 9.1 mg/dL (8.5-10.1); Creatinine, Blood 4.23 mg/dL (0.40-1.00); Globulin, Blood 5.1 g/dL (2.2-4.0); Potassium, Blood 3.7 mmol/L (3.5-5.5); Total Protein, Blood 7.3 g/dL (6.4-8.2)
[2023-03-09 22:56] LABS: BASOPHILS PERCENT MAN 0 % (0-2); EOSINOPHILS PERCENT MAN 0 % (0-6); LYMPHOCYTES ABSOLUTE MAN 5.77 K/mm3 (0.84-5.20); LYMPHOCYTES PERCENT MAN 41 % (21-46); MONOCYTES ABSOLUTE MAN 0.84 K/mm3 (0.16-1.47); MONOCYTES PERCENT MAN 6 % (4-13); MYELOCYTE ABSOLUTE MAN 0.14 K/mm3 (0.00-0.00); MYELOCYTE PERCENT MAN 1 % (0-0); NEUTROPHILS ABSOLUTE MAN 7.32 K/mm3 (1.96-9.15); SEG NEUTROPHILS PERCENT MAN 52 % (41-73); TOTAL CELLS COUNTED 100
--- NOTE | 2023-03-09 23:46 | NUR ---
PATIENT FROM MEDICAL FLOOR AT 2155 TO ICU. PATIENT INTUBATED AND UNRESPONSIVE UPON ARRIVAL. HR 160s. OG INSERTED AND HOSPITALIST CALLED TO ROOM DUE TO PATIENT NOT VENTILATING. X-RAY DONE AND CONFIRMED PLACEMENT OF ETT. PATIENT OPENING EYE TO PAIN, UNABLE TO FOLLOW COMMANDS. 02 SATS 95% ON VENT AC PC 20/350/10/100%, RED SPUTUM SUCTIONED FROM ETT. OG TO LIS WITH DARK RED OUTPUT. IV ACCESS MINIMAL AND NOT INFUSING. IO ACCESS STARTED BY ER. DR. ATKINSON IN ROOM ATTEMPTING CENTRAL LINE. HR ST 140s, BP DECREASING AND LEVOPHED STARTED. BERENICE AND DILAUDID GIVEN FOR VENT COMPLIANCE FOR CENTRAL LINE PLACEMENT. PROPOFOL INFUSING. PER DR. ATKINSON IO TO STAY IN THIS SHIFT. FAMILY UPDATED ON PATIENT CONDITION.
[2023-03-10] VITALS (32 sets, daily range): BP systolic 87–140; BP diastolic 56–72
[2023-03-10 02:18] LABS: Source, Urine Foley catheter
[2023-03-10 02:44] LABS: Bilirubin, Urine Neg (Neg); Blood, Urine 2+ (Neg); Glucose Qualitative, Urine 3+ (Neg); Ketones, Urine Neg (Neg); Leukocyte Esterase, Urine Neg (Neg); Nitrite, Urine Neg (Neg); Protein, Urine 3+ (Neg); Specific Gravity, Urine 1.015 (1.003-1.022); Urobilinogen, Urine NORM (Normal)
[2023-03-10 03:03] LABS: U Opiates Screen DETECTED
[2023-03-10 03:04] LABS: Appearance, Urine Clear (Clear); Color, Urine Pale Yellow (P-Yellow); U Amphetamine Screen Not Detected; U Barbituate Screen Not Detected; U Benzodiazapine Screen Not Detected; U Buprenorphine Screen Not Detected; U Cannabinoids Screen Not Detected; U Cocaine Screen Not Detected; U Methadone Screen Not Detected; U Methamphetamine Screen Not Detected; U Oxycodone Screen DETECTED; U Phencyclidine Screen Not Detected; U Propoxyphene Screen Not Detected
[2023-03-10 03:05] LABS: BASOPHILS PERCENT AUTO 0 % (0-2); EOSINOPHILS ABSOLUTE AUTO 0.02 K/mm3 (0.00-0.68); EOSINOPHILS PERCENT AUTO 0 % (0-6); Hematocrit 23.4 % (33.0-51.0); Hemoglobin 7.4 g/dL (11.5-16.0); IMMATURE GRAN PERCENT AUTO 2 % (0-1); LYMPHOCYTES ABSOLUTE AUTO 1.16 K/mm3 (0.84-5.20); LYMPHOCYTES PERCENT AUTO 5 % (21-46); MONOCYTES ABSOLUTE AUTO 1.32 K/mm3 (0.16-1.47); MONOCYTES PERCENT AUTO 5 % (4-13); Mean Corpuscular HGB 29.2 pg (26.0-34.0); Mean Corpuscular HGB Conc 31.6 g/dL (31.5-36.5); Mean Corpuscular Volume 93 fL (80-100); NEUTROPHILS ABSOLUTE AUTO 21.65 K/mm3 (1.96-9.15); NEUTROPHILS PERCENT AUTO 88 % (41-73); Platelet Count 294 K/mm3 (150-400); RDW Coefficient Variation 15.1 % (11.7-14.2); RDW Standard Deviation 50.4 fL (35.1-46.3); Red Blood Cell Count 2.53 M/mm3 (3.80-5.20); White Blood Cell Count 24.65 K/mm3 (4.00-11.30)
[2023-03-10 03:06] LABS: Bacteria Rare /hpf; Red Blood Cells, Urine 0-2 /hpf (0-2); Squamous Epithelial Cells Rare /hpf (Few); White Blood Cells, Urine 0-2 /hpf (0-5)
[2023-03-10 03:20] LABS: Albumin, Blood 1.9 g/dL (3.4-5.0); Anion Gap 9 mmol/L (6-16); Blood Urea Nitrogen 32 mg/dL (8-24); Bun/Creatinine Ratio 6.9 (12.0-20.0); CO2, Blood 30 mmol/L (21-32); Calcium, Blood 8.9 mg/dL (8.5-10.1); Chloride, Blood 98 mmol/L (98-108); Creatinine, Blood 4.63 mg/dL (0.40-1.00); Glomerular Filtration Rate 11 (60-); Glucose, Blood 282 mg/dL (70-99); Magnesium, Blood 2.2 mg/dL (1.6-2.4); Phosphorus, Blood 4.7 mg/dL (2.5-4.9); Potassium, Blood 3.4 mmol/L (3.5-5.5); Sodium, Blood 137 mmol/L (136-145)
--- NOTE | 2023-03-10 06:09 | NUR ---
SHIFT SUMMARY PATIENT REMAINS INTUBATED AND SEDATED ON PROPOFOL. OPENS EYES TO VERBAL STIMULI ABLE TO TO FOLLOW SIMPLE COMMANDS. 02 SATS 100% ON VENT AC PC 20/350/10/100%, BRIGHT RED SUCTIONED FROM ETT. HR ST 120, BP HYPOTENSIVE, ON LEVOPHED. BEDBATH DONE. REPLACING POTASSIUM. CASTAÑEDA PATENT AND DRAINING TO GRAVITY CLEAR YELLOW URINE. REPOSITIONED Q4 HOURS.
--- NOTE | 2023-03-10 10:26 | NUR ---
Assumed care at 0700. [facility] Pt sedated and ventilated via ETT. Vent settings: AC/VC 16/350/10/60%. OG tube in place - to low int suction. Propofol infusing at 35 mcg/kg/min, Levophed infusing at 5 mcg/min, NS TKO. R/fem central line in place, wnl. IO in R/leg, wnl. Dialysis catheter in place, L/anterior chest wall. Levi in place, draining to gravity. No acute needs att, will continue to monitor.
--- NOTE | 2023-03-10 18:28 | NUR ---
Shift summary. Pt remains intubated and sedated. Vent settings: AC/VC 16/350/5/30%, propofol infusing at 35 mcg/kg/min. Levophed at 3 mcg/min, titrated to maintain MAP above 65 throughout shift. NS tko. Pt painful at times, dilaudid given prn, see EMAR. Pt anuric, no urine output this shift. See chart for further details. Will continue to monitor and report off to roque REYNA.
--- NOTE | 2023-03-10 19:41 | NUR ---
ASSUMED CARE AT 1900 PATIENT IS INTUBATED AND SEDATED, REPSONDS TO VERBAL STIMULI, FOLLOWS COMMANDS AND ABLE TO NOD YES/NO. 02 SATS 96% ON VENT AC PC 16/350/5/30%, RR 19. HR ST 123, LEVOPHED INF TO MAINTAIN MAP >65. TEMP CASTAÑEDA PATENT AND DRAINING CLEAR YELLOW TO GARVITY. WILL MEDICATE PATIENT PRN FOR PAIN. CALL LIGHT IN REACH.
[2023-03-11] VITALS (96 sets, daily range): BP systolic 108–164; BP diastolic 54–135
[2023-03-11 03:49] LABS: BASOPHILS ABSOLUTE AUTO 0.12 K/mm3 (0.00-0.23); BASOPHILS PERCENT AUTO 1 % (0-2); EOSINOPHILS ABSOLUTE AUTO 0.24 K/mm3 (0.00-0.68); EOSINOPHILS PERCENT AUTO 2 % (0-6); Hematocrit 18.8 % (33.0-51.0); IMMATURE GRAN ABSOLUTE AUTO 0.12 K/mm3 (0.00-0.10); IMMATURE GRAN PERCENT AUTO 1 % (0-1); LYMPHOCYTES ABSOLUTE AUTO 2.41 K/mm3 (0.84-5.20); LYMPHOCYTES PERCENT AUTO 23 % (21-46); MONOCYTES ABSOLUTE AUTO 1.01 K/mm3 (0.16-1.47); MONOCYTES PERCENT AUTO 10 % (4-13); Mean Corpuscular HGB 29.3 pg (26.0-34.0); Mean Corpuscular HGB Conc 31.9 g/dL (31.5-36.5); Mean Corpuscular Volume 92 fL (80-100); Mean Platelet Volume 9.9 fL (9.1-12.4); NEUTROPHILS ABSOLUTE AUTO 6.54 K/mm3 (1.96-9.15); NEUTROPHILS PERCENT AUTO 63 % (41-73); Platelet Count 235 K/mm3 (150-400); RDW Coefficient Variation 15.4 % (11.7-14.2); RDW Standard Deviation 51.4 fL (35.1-46.3); Red Blood Cell Count 2.05 M/mm3 (3.80-5.20); White Blood Cell Count 10.44 K/mm3 (4.00-11.30)
[2023-03-11 04:13] LABS: Albumin, Blood 1.8 g/dL (3.4-5.0); Anion Gap 9 mmol/L (6-16); Blood Urea Nitrogen 41 mg/dL (8-24); CO2, Blood 30 mmol/L (21-32); Calcium, Blood 8.9 mg/dL (8.5-10.1); Chloride, Blood 97 mmol/L (98-108); Creatinine, Blood 5.83 mg/dL (0.40-1.00); Glomerular Filtration Rate 8 (60-); Glucose, Blood 126 mg/dL (70-99); Magnesium, Blood 2.2 mg/dL (1.6-2.4); Phosphorus, Blood 5.4 mg/dL (2.5-4.9); Potassium, Blood 3.7 mmol/L (3.5-5.5); Sodium, Blood 136 mmol/L (136-145)
--- NOTE | 2023-03-11 05:44 | NUR ---
SHIFT SUMMARY PATIENT IS NOW ALERT AND ORIENTED. SEDATION TITRATED OFF THIS AM AND PATIENT FOLLOWING COMMANDS, RESTRAINTS DC'd. SPONT BREATHING ON VENT. 02 SATS 97%. HR ST 109. BP STABLE, ABLE TO TITRATE OFF LEVOPHED THIS SHIFT. OG REMAINS TO LIS SUCTION, MINIMAL OUTPUT. CASTAÑEDA PATENT AND DRAINING MINIMAL CLEAR YELLOW URINE. PATIENT ON HER PERIOD, CLEANED AND PAD PLACED UNDER PATIENT. NO BOWEL MOVEMENT THIS SHIFT. REPOSITIONED Q2 HOURS. CALL LIGHT IN REACH
--- NOTE | 2023-03-11 07:15 | NUR ---
CARE ASSUMPTION DURING BEDSIDE SHIFT REPORT Gilma Sauceda RN THE PT IS AWAKE ATTACHED TO THE VENTILATOR WATCHING TV. VENTILATOR IS ON SPONTANEOUS W PRESSURE SUPPORT OF 12, PEEP OF 5.O AND 30% FIO2. PT IS AXO AND COMMUNICATING W STAFF AT THIS TIME USING PEN AND PAPER. PT RECIEVING ONE UNIT OF PRBC'S AT THIS TIME. PT HAS OG TUBE HOOKED TO LIS SHOWING DARK BROWN-GREEN OUTPUT. INLINE SUCTION YI-UP ATTACHED W DARK RED BLOOD IN CANISTER. PT HAS CASTAÑEDA CATHETER THAT HAS SMALL AMOUNT OF CLEAR YELLOW URINE IN COLLECTION DEVICE. PT PLACED BACK ON PROPOFOL PER HER REQUEST SHE IS NOT COMFORTABLE W THE ET TUBE IN HER THROAT. PT PLACED BACK ON PROPOFOL AND DENYING ANY FURTHER NEEDS AT THIS TIME.
[2023-03-11 08:52] LABS: Hematocrit 20.9 % (33.0-51.0); Hemoglobin 6.7 g/dL (11.5-16.0)
[2023-03-11 15:04] LABS: Hematocrit 22.2 % (33.0-51.0); Hemoglobin 7.2 g/dL (11.5-16.0)
--- NOTE | 2023-03-11 17:52 | NUR ---
DAYSHIFT SUMMARY PT SPENT MOST OF THE DAY AWAKE ON THE VENTILATOR ON SPONTANEOUS MODE W PS OF 12 PEEP OF 5.0 AND 30% FIO2. PT USING PEN AND PAPER TO EFFECTIVELY COMMUNICATE W STAFF. PT RECIEVED 2 UNITS OF PRBC'S THIS SHIFT. PT'S BP STABLE AND MILDLY ELEVATED AT TIMES. MONITOR SHOWING ST 110-120'S THIS SHIFT. PT PLACED BACK ON VENT SETTINGS OF AC/VC+ 16/350/ 5.0 W 30% FIO2 AFTER REQUIRING INCREASED SEDATION TO TOLERATE LYING FLAT FOR CL REMOVAL AND THEN AGAIN FOR UPCOMING EGD. DR. NIX CONSULTED PT AT BEDSIDE AND PT CONSENTED FOR EGD WITHIN THE HOUR. DIALYSIS HELD AND RESCHEDULED FOR TOMMOROW AM PER DR. AVENDANO DUE TO EGD PROCEDURE. PT HAS HAD SCANT BRIGHT RED BLOOD INSIDE OF THE ET TUBE SUCTION TUBING BUT HAS SHOWED NO OTHER S/S OF BLEEDING. OG TUBE SET TO LIS DRAWING OUT 150ML DARK GREEN BILE THIS SHIFT. PT'S CASTAÑEDA CATHETER PATENT AND DRAING 100 ML CLEAR YELLOW URINE THIS SHIFT. PICC LINE PLACED THIS SHIFT AND FEMORAL CL REMOVED. CBG'S STABLE IN THE 90'S THIS SHIFT. PT'S AT BEDSIDE FOR SECOND HALF OF THE DAY.
--- NOTE | 2023-03-11 18:05 | NUR ---
Dialysis cancellation. To patient room in ICU, machine was set-up. Dr Salazar in room for endoscopy consultation and patient to do pocedure this evening. Dr. Castrejon was called by primary nurse and dialysis treatment is re-scheduled in the morning.
--- NOTE | 2023-03-11 18:32 | NUR ---
03/11/23 1831 Tereza Ordonez History, Chart, Medications and Allergies reviewed before start of procedure. PT INTUBATED AND ON PROPOFOL DRIP BIT BLOCK PLACE PRIOR TO START OF PROCEDURE
[2023-03-12] VITALS (68 sets, daily range): BP systolic 99–176; BP diastolic 59–128
[2023-03-12 03:53] LABS: BASOPHILS ABSOLUTE AUTO 0.11 K/mm3 (0.00-0.23); BASOPHILS PERCENT AUTO 1 % (0-2); EOSINOPHILS ABSOLUTE AUTO 0.21 K/mm3 (0.00-0.68); EOSINOPHILS PERCENT AUTO 2 % (0-6); Hematocrit 21.5 % (33.0-51.0); Hemoglobin 7.1 g/dL (11.5-16.0); IMMATURE GRAN ABSOLUTE AUTO 0.08 K/mm3 (0.00-0.10); IMMATURE GRAN PERCENT AUTO 1 % (0-1); LYMPHOCYTES ABSOLUTE AUTO 1.93 K/mm3 (0.84-5.20); LYMPHOCYTES PERCENT AUTO 22 % (21-46); MONOCYTES ABSOLUTE AUTO 0.82 K/mm3 (0.16-1.47); MONOCYTES PERCENT AUTO 9 % (4-13); Mean Corpuscular HGB 29.5 pg (26.0-34.0); Mean Corpuscular Volume 89 fL (80-100); Mean Platelet Volume 9.9 fL (9.1-12.4); NEUTROPHILS ABSOLUTE AUTO 5.68 K/mm3 (1.96-9.15); NEUTROPHILS PERCENT AUTO 64 % (41-73); Platelet Count 188 K/mm3 (150-400); RDW Coefficient Variation 15.9 % (11.7-14.2); RDW Standard Deviation 52.5 fL (35.1-46.3); Red Blood Cell Count 2.41 M/mm3 (3.80-5.20); White Blood Cell Count 8.83 K/mm3 (4.00-11.30)
[2023-03-12 04:09] LABS: Albumin, Blood 1.8 g/dL (3.4-5.0); Anion Gap 10 mmol/L (6-16); Blood Urea Nitrogen 50 mg/dL (8-24); Bun/Creatinine Ratio 7.4 (12.0-20.0); CO2, Blood 28 mmol/L (21-32); Calcium, Blood 8.6 mg/dL (8.5-10.1); Chloride, Blood 97 mmol/L (98-108); Glomerular Filtration Rate 7 (60-); Glucose, Blood 87 mg/dL (70-99); Magnesium, Blood 2.4 mg/dL (1.6-2.4); Phosphorus, Blood 6.2 mg/dL (2.5-4.9); Sodium, Blood 135 mmol/L (136-145)
--- NOTE | 2023-03-12 05:50 | NUR ---
SHIFT SUMMARY ROSA M SPENT THE MAJORITY OF SHIFT WITH A PROPOFOL GTT AT 45 MCG/KG/HR, AND VENT SETTINGS AT AC/VC/16/350/5/45. SOFT RESTRAINTS IN PLACE. PT DID REQUIRE 1MG IV DILAUDID 2X OVERNIGHT FOR COMFORT. AT 0445 PROPOFOL WAS TURNED DOWN TO 20MCG/KG/MIN AND PT WAS ABLE TO OPEN EYES SPONTANEOUSLY AND OBEY COMMANDS. RT THEN SWITCHED VENT TO SPONTANEOUS MODE WHERE PT CONTINUES TO MAINTAIN O2 SATS OVER 90 WITH A RR OF 14. PT DID START TO COMPLAIN OF DISCOMFORT WITH THE ETT SO PROPOFOL WAS TITRATED TO 30MCG/KG/MIN FOR COMFORT, PT STILL ABLE TO BREATH SPONTANEOUSLY W/ PLAN FOR EXTUBATION TODAY HR SUSTAINS IN 100S-110S.
--- NOTE | 2023-03-12 07:15 | NUR ---
CARE ASSUMPTION DURING BEDSIDE SHIFT REPORT WITH KYA RN'S THE PT IS LYING IN BED AWAKE ON THE VENTILATOR. VENT SETTINGS ARE SPONTANEOUS W A PRESSURE SUPPORT OF 12, PEEP AT 5.0 W 30% FIO2. PT USING PAPER AND PEN TO COMMUNICATE W STAFF EFFECTIVELY. MONTOR SHOWING ST 110'S. BP WNL AND STABLE. AT TUBE OUT AT 24.0 TO THE TEETH, PREVIOUSLY 25.0 TO THE TEETH, RT NOTIFIED.
--- NOTE | 2023-03-12 08:30 | NUR ---
PT EXUBATED PT SUCCESSFULLY EXUBATED BY SCOTT PARRA PER DR. LENO ORDER. PT ON 3L NC W SPO2 >92%.
--- NOTE | 2023-03-12 11:35 | NUR ---
Spiritual Care Visit. Did a brief visit with Pt. offering support. Pt. displayed discomfort in trying to verbalize, so I kept the visit short. Pt. verbalized gratitude for the spiritual care visit. Will remain available to Pt.
--- NOTE | 2023-03-12 17:05 | NUR ---
PT HANDOFF/CARE ASSUMPTION PT WAS EXTUBATED THIS AM AND HAS MAINTAINED SPO2 >92% ON 1-3L NC. PT USING SUCTION TO SPIT UP BLOODY SPUTUM WHICH IS UNCHANGED SHE HAD SAME SECRETIONS WHILE INTUBATED. MONITOR HAS SHOWN ST 100-110'S THIS SHIFT. BP ELEVATED THIS SHIFT, LABETOLOL GIVEN ONCE THIS SHIFT W MINIMAL EFFECTS. PT PASSED SWALLOW EVAL AND IS TOLERATING FULL LIQUID DIET. CASTAÑEDA CATHETER REMOVED THIS SHIFT. PT HAD SMALL BLACK BM THIS SHIFT. PT NOW MED TELE STATUS.
--- NOTE | 2023-03-12 17:41 | NUR ---
ASSUMED CARE CARE OF THE PT WAS ASSUMED AROUND 1700. REPORT GIVEN BY MAO REYNA. PT A&O X4. WHILE IN ROOM MAO REYNA TITRATED PT'S O2 TO 1 L VIA N/C. 02 SATS 93% AT THIS TIME. SINUS TACH NOTED ON WOOD MODEL MAKER. NO FLUIDS RUNNING AT THIS TIME. FAMILY AT BEDSIDE.
--- NOTE | 2023-03-12 18:30 | NUR ---
SHIFT SUMMARY PT A&O X4. CURRENTLY ON 1 L N/C, 02 SATS >93%. SINCE ASSUMING PT'S CARE SHE HAS CALLED APPROPRIATELY AND MADE HER NEEDS KNOWN. PT'S HAS BEEN AT BEDSIDE SINCE ASSUMING CARE. SINUS TACH NOTED ON HEARING CARE PROFESSIONAL. PT USING SUCTION INDEPENDENTLY FOR EXCRETIONS SHE IS COUGHING UP. PT CURRENTLY ON MENSTRUAL CYCLE. WILL CONTINUE TO MONITOR UNTIL CARE IS TRANSITIONED TO NOC SHIFT.
[2023-03-12 18:32] LABS: Percent Saturation 23.8 % (15.0-50.0)
--- NOTE | 2023-03-12 19:38 | NUR ---
ASSUMED CARE OF PT AT 1900 PT A/O X4 VITALS WNL FOR PATIENT. PT IS MED FLOOR STATUS WITH TELE. PT ON BEDPAN AT THIS TIME. REPORT GIVEN OUTSIDE OF ROOM FOR PATIENT PRIVACY WILE USING BEDPAN. PLEASE SEE ASSESSMENT FOR FURTHER INFORMATION.
[2023-03-13 00:25] VITALS: BP 173/76
--- NOTE | 2023-03-13 04:13 | NUR ---
TRANSFER NOTE HANDOFF RECEIVED FROM ANIMAL RESCUER LYDIA. PT ARRIVED TO FLOOR VIA GURNEY. PT ORIENTED TO UNIT. CALL BUTTON WITHIN REACH. PERSONAL POSSESSIONS WITH PT.
--- NOTE | 2023-03-13 04:22 | NUR ---
SHIFT SUMMARY ADMITTED FOR ELEVATED FEVER. FULL CODE. DIALYSIS PATIENT. PREVIOUS DIALYSIS PERMA CATH FOUND TO BE INFECTED. NEW DIALYSIS CATH IN PLACE. SINCE ADMIT SHE HAS EXPERIENCED HEMATEMESIS, ASPIRATION, AND INTUBATION. EXTUBATED 03/12. TRANSFERED FROM ICU TO MED FLOOR THIS SHIFT. SHE IS ABLE TO CALL AND MAKE HER NEEDS KNOWN. 1500 ML FLUID RESTRICTION. FULL LIQUID DIET. PICC LINE IN LUE. PLAN IS FOR 14 DAYS OF ANTIB RX AND TO RESTART HER ELIQUIS AT SOME POINT. SHE DID ASSIST WITH REPOSITIONING THIS SHIFT. EGD FOUND MINA-WILSON TEAR. ACHS CBG'S. SHE SUCTIONS HERSELF. 1 LPM O2 VIA NC, SHE IS KNOWN TO DESAT AT HS.
[2023-03-13 04:41] VITALS: BP 164/69
[2023-03-13 05:32] LABS: BASOPHILS ABSOLUTE AUTO 0.12 K/mm3 (0.00-0.23); BASOPHILS PERCENT AUTO 1 % (0-2); EOSINOPHILS ABSOLUTE AUTO 0.24 K/mm3 (0.00-0.68); EOSINOPHILS PERCENT AUTO 2 % (0-6); Hematocrit 24.2 % (33.0-51.0); Hemoglobin 8.1 g/dL (11.5-16.0); IMMATURE GRAN ABSOLUTE AUTO 0.07 K/mm3 (0.00-0.10); IMMATURE GRAN PERCENT AUTO 1 % (0-1); LYMPHOCYTES ABSOLUTE AUTO 1.81 K/mm3 (0.84-5.20); LYMPHOCYTES PERCENT AUTO 18 % (21-46); MONOCYTES ABSOLUTE AUTO 0.73 K/mm3 (0.16-1.47); MONOCYTES PERCENT AUTO 7 % (4-13); Mean Corpuscular HGB 29.3 pg (26.0-34.0); Mean Corpuscular HGB Conc 33.5 g/dL (31.5-36.5); Mean Corpuscular Volume 88 fL (80-100); Mean Platelet Volume 9.7 fL (9.1-12.4); NEUTROPHILS ABSOLUTE AUTO 6.88 K/mm3 (1.96-9.15); NEUTROPHILS PERCENT AUTO 70 % (41-73); Platelet Count 234 K/mm3 (150-400); RDW Coefficient Variation 15.3 % (11.7-14.2); RDW Standard Deviation 49.1 fL (35.1-46.3); Red Blood Cell Count 2.76 M/mm3 (3.80-5.20); White Blood Cell Count 9.85 K/mm3 (4.00-11.30)
[2023-03-13 06:25] LABS: Ferritin, Serum 793 ng/mL (8-252); Magnesium, Blood 2.2 mg/dL (1.6-2.4)
[2023-03-13 06:26] LABS: Alanine Aminotransfer (ALT/SGP <6 U/L (12-78); Albumin, Blood 1.8 g/dL (3.4-5.0); Albumin/Globulin Ratio 0.4 (0.8-1.8); Alk Phos 148 U/L (50-136); Anion Gap 12 mmol/L (6-16); Aspartate Aminotrans (AST/SGOT 17 U/L (12-37); Bilirubin, Total 0.5 mg/dL (0.1-1.0); Blood Urea Nitrogen 37 mg/dL (8-24); Bun/Creatinine Ratio 7.3 (12.0-20.0); CO2, Blood 29 mmol/L (21-32); Calcium, Blood 8.4 mg/dL (8.5-10.1); Chloride, Blood 93 mmol/L (98-108); Creatinine, Blood 5.06 mg/dL (0.40-1.00); Globulin, Blood 4.3 g/dL (2.2-4.0); Glomerular Filtration Rate 10 (60-); Glucose, Blood 118 mg/dL (70-99); Phosphorus, Blood 4.9 mg/dL (2.5-4.9); Potassium, Blood 3.4 mmol/L (3.5-5.5); Sodium, Blood 134 mmol/L (136-145); Total Protein, Blood 6.1 g/dL (6.4-8.2)
[2023-03-13 07:45] VITALS: BP 168/78
--- NOTE | 2023-03-13 08:13 | NUR ---
pt laying in bed awake, a/ox3, pleasant and cooperative with care, follows commands well, denies pain at this time, lungs are clear a bit dim in bases, on 1liter o2 via n/c, resp even and unlabored, no cough noted, hrr, tele in place running sr per monitor, see strip, slight edema noted to b/l le, ppp +1, cap refill <3sec vs stable, afebrile, iv is picc line to britney site is clear, perma cath noted to lcw, site is clear, dressing to rcw, no drainage noted, btx4 abd large soft nontender, reports last bm yesterday, briefs in place, brayan geronimo, call light in reach.
[2023-03-13 15:45] VITALS: BP 158/71
--- NOTE | 2023-03-13 18:59 | NUR ---
pt had two bms' today, pretty dark, pt states she's been on iron, did get up to the bsc with PT this afternoon, right hip and leg are painful, got her tylenol but didn't do anything for the pain per pt. no further changes this shift. call light in reach.
[2023-03-13 19:08] VITALS: BP 160/71
[2023-03-14] VITALS (18 sets, daily range): BP systolic 103–185; BP diastolic 68–103
--- NOTE | 2023-03-14 04:23 | NUR ---
SHIFT SUMMARY: PT A&O X4 THIS SHIFT. PT PLEASANT AND COOPERATIVE WITH CARE. PT HAD LARGE, LOOSE BM EARLY THIS SHIFT AND IS ANTICIPATING ANOTHER PRIOR TO SHIFT CHANGE. STOOL VERY DARK. PT STATES SHE IS ON IRON SUPPLEMENTS. PT ON TELE RUNNING SINUS TACHY. PT ON 1L PRN. PT CURRENTLY RUNNING 91%. PT UNWILLING TO PUT NC IN AT THE MOMENT. PT HYPERTENSIVE WITH 0430 VITALS. WILL PROVIDE PRN MEDICATION. PT ON 1,500 mL FLUID RESTRICTION TOLERATING WELL. CALL LIGHT IN REACH. BED IN LOWEST POSITION. WILL CONTINUE TO MONITOR.
[2023-03-14 05:12] LABS: Hematocrit 24.4 % (33.0-51.0)
[2023-03-14 05:33] LABS: Albumin, Blood 1.9 g/dL (3.4-5.0); Albumin/Globulin Ratio 0.4 (0.8-1.8); Bilirubin, Total 0.3 mg/dL (0.1-1.0); Bun/Creatinine Ratio 7.8 (12.0-20.0); Calcium, Blood 8.9 mg/dL (8.5-10.1); Creatinine, Blood 6.12 mg/dL (0.40-1.00); Globulin, Blood 4.3 g/dL (2.2-4.0); Magnesium, Blood 2.3 mg/dL (1.6-2.4); Phosphorus, Blood 5.1 mg/dL (2.5-4.9); Potassium, Blood 3.5 mmol/L (3.5-5.5); Total Protein, Blood 6.2 g/dL (6.4-8.2)
--- NOTE | 2023-03-14 08:52 | NUR ---
pt laying in bed awake a/ox3, cooperative with care, follows commands well, states her night was ok, lungs are clear dim in bases, on r/a this am, no cough noted, she reports and occational productive cough that she self suctions, hrr, tele in place running st in low 100's, trace edema noted to b/l le, ppp+2, cap refill<3 sec, vs stable, afebrile, iv site is picc line to britney site is clear and patent, bt x4, abd flat soft nontender, voids occ, incont of stool/urine, briefs in place, helps to turn in bed, two person to chair, reluctant to get oob, brayan, call light in reach.
--- NOTE | 2023-03-14 18:07 | NUR ---
pt had family in to visit this evening, had dialysis this morning with 2 liters out, slept for a while after, refused to get oob today, and used a bedpan instead of bsc, no further changes this shift. call light in reach.
[2023-03-15] VITALS (11 sets, daily range): BP systolic 159–201; BP diastolic 68–89
--- NOTE | 2023-03-15 04:16 | NUR ---
SHIFT SUMMARY: PT A&O X4. PT PLEASANT AND COOPERATIVE WITH CARE. NO ACUTE CHANGES WITH PT THIS SHIFT. PT ANXIOUS ABOUT LEAVING TO SNF ONCE MEDICALLY STABLE. PICC LINE IN LIZBET WNL AND DRAWING WELL. 1500 mL FLUID RESTRICTION REMAINS IN PLACE. PT ABLE TO USE BSC FOR NET UI DEVELOPER THIS SHIFT. NO C/O PAIN OR N/V. FULL LIQUID DIET ADVANCED TO RENAL/CONS CARB DIET. CALL LIGHT IN REACH. BED IN LOWEST POSITION. WILL CONTINUE TO MONITOR.
[2023-03-15 05:50] LABS: Hematocrit 23.8 % (33.0-51.0); Hemoglobin 7.8 g/dL (11.5-16.0)
[2023-03-15 06:33] LABS: Alanine Aminotransfer (ALT/SGP <6 U/L (12-78); Albumin, Blood 1.9 g/dL (3.4-5.0); Albumin/Globulin Ratio 0.4 (0.8-1.8); Alk Phos 134 U/L (50-136); Anion Gap 8 mmol/L (6-16); Aspartate Aminotrans (AST/SGOT 11 U/L (12-37); Bilirubin, Total 0.4 mg/dL (0.1-1.0); Blood Urea Nitrogen 35 mg/dL (8-24); Bun/Creatinine Ratio 7.3 (12.0-20.0); CO2, Blood 31 mmol/L (21-32); Calcium, Blood 8.6 mg/dL (8.5-10.1); Chloride, Blood 96 mmol/L (98-108); Creatinine, Blood 4.77 mg/dL (0.40-1.00); Globulin, Blood 4.3 g/dL (2.2-4.0); Glomerular Filtration Rate 11 (60-); Glucose, Blood 110 mg/dL (70-99); Potassium, Blood 3.7 mmol/L (3.5-5.5); Sodium, Blood 135 mmol/L (136-145); Total Protein, Blood 6.2 g/dL (6.4-8.2)
--- NOTE | 2023-03-15 17:05 | NUR ---
SHIFT SUMMARY PATIENT WITH BACK/LEG/SCIATIC PAIN, ORIENTEDX4. MEDICATED WITH TYLENOL WITH MINIMAL RELIEF, REPOSITIONING PROVIDES ADDITIONAL PARTIAL RELIEF. PATIENT WITH NEW ONSET COUGH, ROBITUSSIN DM ORDERED AND HELPING TO MINIMIZE COUGHING. PATIENT URINATED 500ML OUT DURING SHIFT TODAY. CALL LIGHT IN REACH, BED IN LOW POSITION. PATIENT CALLS APPROPRIATELY. WILL CONTINUE TO MONITOR.
--- NOTE | 2023-03-15 19:13 | NUR ---
END OF SHIFT SUMMARY. PATIENT C/O CHEST PRESSURE DURING DINNER THIS EVENING. BP RUNNING 199/81. O2 SAT 96% ROOM AIR, HR 98. HYDRALAZINE GIVEN IV, DR SANCHEZ NOTIFIED, BP STILL HIGH, DR ORDERED EKG AND GIVE LABETELOL IF BP NOT COMING DOWN WITHIN 15 MINUTES. LABETELOL GIVEN. PATIENT HAD BOWEL MOVEMENT. BLOOD PRESSURE COMING DOWN 15-20 MINUTES AFTER LABETELOL GIVEN. PATIENT REPORTS CHEST PRESSURE HAS RESOLVED. STATES SHE IS NOT EATING ANY MORE DINNER IN CASE THE RICE WAS CAUSING THE PRESSURE.
[2023-03-16] VITALS (20 sets, daily range): BP systolic 79–197; BP diastolic 53–89
--- NOTE | 2023-03-16 04:36 | NUR ---
SHIFT SUMMARY: PT A&O X4. PT PLEASANT AND COOPERATIVE WITH CARE. PT CONTINUES TO EXPLAIN HER FEARS AND ANXIETY ABOUT D/C TO SNF. PT STATES FACILITY WILL NOT CHECK ON HER FREQUENT THE HOSPITAL AND ANXIETY ABOUT IF SHE STARTS THROWING UP BLOOD AGAIN. SAT WITH PT AND LISTENED WHILE PROVIDING EDUCATION AND REASSURANCE. PT HAD CHEST PAIN END OF DAY SHIFT AND BEGINNING OF THIS SHIFT. STAT EKG PERFORMED. RESULTS IN CHART. BLOOD PRESSURE ELEVATED. PT STATES SHE NORMALLY HAS ELEVATED B/P. MEDICATING PER EMAR. PT C/O 6/10 PAIN IN HEAD AROUND 0400. TYLENOL PROVIDED. PT HAS NOT C/O CHEST PAIN SINCE BEGINNING OF SHIFT. CALL LIGHT IN REACH. BED IN LOWEST POSITION. WILL CONTINUE TO MONITOR.
[2023-03-16 05:14] LABS: Hematocrit 24.2 % (33.0-51.0); Hemoglobin 7.9 g/dL (11.5-16.0)
[2023-03-16 05:47] LABS: Albumin, Blood 2.1 g/dL (3.4-5.0); Anion Gap 11 mmol/L (6-16); Blood Urea Nitrogen 45 mg/dL (8-24); Bun/Creatinine Ratio 7.6 (12.0-20.0); CO2, Blood 28 mmol/L (21-32); Chloride, Blood 97 mmol/L (98-108); Creatinine, Blood 5.94 mg/dL (0.40-1.00); Glomerular Filtration Rate 8 (60-); Glucose, Blood 100 mg/dL (70-99); Phosphorus, Blood 4.1 mg/dL (2.5-4.9); Potassium, Blood 3.9 mmol/L (3.5-5.5); Sodium, Blood 136 mmol/L (136-145)
--- NOTE | 2023-03-16 05:55 | NUR ---
IV HYDRALAZINE GIVEN TO PT AT 0430 FOR 182/76 BP. REPEAT BP AT 0540 SHOWED BP OF 188/78. PT WAS HAVING LITTLE ANXIETY. IV LABETALOL GIVEN. WILL REPEAT B/P PRIOR TO SHIFT CHANGE.
--- NOTE | 2023-03-16 06:34 | NUR ---
REPEAT B/P AT 620 SHOWED 151/65 AFTER IV LABETALOL. PT ANXIETY DECREASING. PT ON .
--- NOTE | 2023-03-16 07:56 | NUR ---
RN NOTIFED DR. STARKEY THAT PT HAD TWO EPISODES OF BRADYCARDIA. FIRST EVENT WAS 9 SECONDS LONG INTO THE MID 30'S AND THE SECOND WAS 9-10 SECONDS LONG. ASYMPTOMATIC PT WAS ASLEEP. RN NOTIFED THAT PT WAS HYPERTENSIVE THIS AM AT 169 SYSTOLIC. MD ORDERED TO GIVE THE HYDRALAZINE ORDERED PRN. RN TOOK APICAL AFTER FIRST EVENT AND PT'S HR=70 BPM. MD GAVE NO NEW ORDERS FOR PT.
--- NOTE | 2023-03-16 12:51 | NUR ---
VERBAL ON THE PHONE FROM JEYSON AVENDANO TO ORDER 5MG MIDODRINE TID (HOLD FOR SYSTOLIC GREATER THAN 130 AND 5MG Q12 PRN FOR SYSTOLIC LESS THAN 130.
--- NOTE | 2023-03-16 18:00 | NUR ---
SUMMARY- PT HAD X2 DIANNA EVENTS THIS AM PREVIOUSLY DOCUMENTED. NO OTHER CALLS FROM TELE TODAY. PT BECAME HYPOTENSIVE DURING DIALYSIS AND MIDODRINE WAS ORDERED PER JUAN ALBERTO. NO OTHER EVENTS THIS SHIFT. PT SAT ON EDGE OF BED X2 TODAY. PT USED BED BARBA X1 TODAY. PT USED BSC X1 TODAY. CALLS APPROPRIATELY.
[2023-03-17 02:57] VITALS: BP 161/71
--- NOTE | 2023-03-17 04:22 | NUR ---
SHIFT SUMMARY NO ACUTE CHANGES TO PT CONDITION. PT HAS BEEN SLEEPING MUCH OF THE NIGHT. PT EARLIER IN SHIFT STATED THAT SHE DID NOT WANT BEDSIDE SHIFT REPORTING DONE OR TO BE WOKEN UP WHEN SHE WAS SLEEPING.
[2023-03-17 07:01] LABS: Albumin, Blood 2.2 g/dL (3.4-5.0); Anion Gap 10 mmol/L (6-16); Blood Urea Nitrogen 32 mg/dL (8-24); CO2, Blood 28 mmol/L (21-32); Calcium, Blood 8.8 mg/dL (8.5-10.1); Chloride, Blood 98 mmol/L (98-108); Creatinine, Blood 4.57 mg/dL (0.40-1.00); Glomerular Filtration Rate 11 (60-); Glucose, Blood 110 mg/dL (70-99); Magnesium, Blood 1.8 mg/dL (1.6-2.4); Phosphorus, Blood 2.8 mg/dL (2.5-4.9); Potassium, Blood 3.8 mmol/L (3.5-5.5); Sodium, Blood 136 mmol/L (136-145)
[2023-03-17 08:02] VITALS: BP 175/88
[2023-03-17 12:09] VITALS: BP 178/82
[2023-03-17 14:02] VITALS: BP 166/80
[2023-03-17 15:45] VITALS: BP 169/87
--- NOTE | 2023-03-17 18:40 | NUR ---
SUMMARY- NO ACUTE EVENTS THIS SHIFT. PT HAS HAD X2 LOOSE STOOLS TOWARDS THE END OF THE SHIFT. X1 TO THE BSC.
[2023-03-17 20:44] VITALS: BP 153/68
[2023-03-18] VITALS (16 sets, daily range): BP systolic 144–469; BP diastolic 63–88
[2023-03-18 05:30] LABS: BASOPHILS ABSOLUTE AUTO 0.11 K/mm3 (0.00-0.23); BASOPHILS PERCENT AUTO 2 % (0-2); EOSINOPHILS ABSOLUTE AUTO 0.22 K/mm3 (0.00-0.68); EOSINOPHILS PERCENT AUTO 3 % (0-6); Hematocrit 24.4 % (33.0-51.0); Hemoglobin 7.9 g/dL (11.5-16.0); IMMATURE GRAN ABSOLUTE AUTO 0.22 K/mm3 (0.00-0.10); IMMATURE GRAN PERCENT AUTO 3 % (0-1); LYMPHOCYTES ABSOLUTE AUTO 1.91 K/mm3 (0.84-5.20); LYMPHOCYTES PERCENT AUTO 29 % (21-46); MONOCYTES ABSOLUTE AUTO 0.86 K/mm3 (0.16-1.47); MONOCYTES PERCENT AUTO 13 % (4-13); Mean Corpuscular HGB 29.3 pg (26.0-34.0); Mean Corpuscular HGB Conc 32.4 g/dL (31.5-36.5); Mean Corpuscular Volume 90 fL (80-100); Mean Platelet Volume 10.4 fL (9.1-12.4); NEUTROPHILS ABSOLUTE AUTO 3.18 K/mm3 (1.96-9.15); NEUTROPHILS PERCENT AUTO 49 % (41-73); Platelet Count 213 K/mm3 (150-400); RDW Coefficient Variation 15.4 % (11.7-14.2); RDW Standard Deviation 50.6 fL (35.1-46.3)
[2023-03-18 05:55] LABS: Albumin, Blood 2.2 g/dL (3.4-5.0); Anion Gap 11 mmol/L (6-16); Blood Urea Nitrogen 38 mg/dL (8-24); Bun/Creatinine Ratio 6.5 (12.0-20.0); CO2, Blood 27 mmol/L (21-32); Calcium, Blood 9.4 mg/dL (8.5-10.1); Chloride, Blood 99 mmol/L (98-108); Creatinine, Blood 5.81 mg/dL (0.40-1.00); Glomerular Filtration Rate 8 (60-); Glucose, Blood 88 mg/dL (70-99); Phosphorus, Blood 4.2 mg/dL (2.5-4.9); Potassium, Blood 3.6 mmol/L (3.5-5.5); Sodium, Blood 137 mmol/L (136-145)
--- NOTE | 2023-03-18 06:39 | NUR ---
SHIFT SUMMARY: A&O X 4, ABLE TO MAKE NEEDS KNOWN, USES CALL LIGHT APPROPRIATELY. SHE DID COMPLAIN OF HEADACHE AND HIP PAIN THIS EVENING AND RECEIVED TYLENOL WHICH WAS EFFECTIVE. SHE ALSO RECEIVE TEMAZEPAM FOR SLEEPING WHICH SHE REPORTS 3 HOURS OF GOOD SLEEP. SHE PLANS ON DISCHARGING TO [place] TODAY. CALL LIGHT WITHIN REACH.
[2023-03-18 12:30] LABS: SARS-Cov-2 (COVID-19) PCR, MMC NEGATIVE (NEGATIVE)
[2023-03-18] MEDS ORDERED: OXAYDO5 M1 PO (13:34)
[2023-03-18] MEDS ORDERED: VISBIOME 112.51 EACH PO (13:35)
[2023-03-18] MEDS ORDERED: PANT40 PO (13:35)
[2023-03-18] MEDS ORDERED: SUCRALFATE PO (13:35)
[2023-03-18] MEDS ORDERED: LOSA50 PO (13:36)
[2023-03-18] MEDS ORDERED: CEFD300 PO (13:36)
--- NOTE | 2023-03-18 19:58 | NUR ---
LATE ENTRY 1350 PT DISCHARGED TO FACILITY. RECIEVED DIALYSIS TODAY. PER NOTES, WILL CONTINUE DIALYSIS SCHEDULE MON, WED, FRI. PT ALERT AND ORIENTED X4. PAIN IN THE HIPS. TREATED PER EMAR. 2 PERSON MAX ASSIST. REPORT GIV[facility] TO [facility] AT [facility].
--- NOTE | 2023-03-20 19:35 | NUR ---
REVIEWED PT'S INFORMATION TO CALL HER, CALLED ROSA M MAI [phone] [facility] LEFT [place], [place], SHE SAYS SHE WILL HAVE A FAMILY MEMEBER COME PICK THEM UP WHEN THEY ARE ABLE TO
== END 2023-03-18 16:40 | DRG 314 ==
LOC: ER 02:30 → ICUE 07:10 → MEDS 07:10 → ICUW 07:10 → MEDS 09:00 → ICUW 20:26 → MEDS 02-23 19:19 → ICUW 02-28 08:33 → MEDS 03-02 22:35 → ICUE 03-09 21:50 → MEDS 03-13 01:25
PROVIDERS: Hospitalist; Internal Medicine; Internal Medicine Critical Care Medicine; Internal Medicine Nephrology; Nurse Practitioner Acute Care; Student in an Organized Health Care Education/Training Program; ADMIT Family Medicine
PROC: 3E03329 Introduction of Other Anti-infective into Peripheral Vein, Percutaneous Approach (ICD-10-PCS; 2023-02-20)
PROC: 5A1D70Z Performance of Urinary Filtration, Intermittent, Less than 6 Hours Per Day (ICD-10-PCS; 2023-02-21)
PROC: 02PYX3Z Removal of Infusion Device from Great Vessel, External Approach (ICD-10-PCS; principal; 2023-02-22)
PROC: B24BZZ4 Ultrasonography of Heart with Aorta, Transesophageal (ICD-10-PCS; 2023-02-26)
PROC: 05H433Z Insertion of Infusion Device into Left Innominate Vein, Percutaneous Approach (ICD-10-PCS; 2023-03-01)
PROC: 4A143B0 Monitoring of Venous Pressure, Central, Percutaneous Approach (ICD-10-PCS; 2023-03-01)
PROC: 0JH63XZ Insertion of Tunneled Vascular Access Device into Chest Subcutaneous Tissue and Fascia, Percutaneous Approach (ICD-10-PCS; 2023-03-05)
PROC: 02HV33Z Insertion of Infusion Device into Superior Vena Cava, Percutaneous Approach (ICD-10-PCS; 2023-03-05)
PROC: B518ZZA Fluoroscopy of Superior Vena Cava, Guidance (ICD-10-PCS; 2023-03-05)
PROC: B548ZZA Ultrasonography of Superior Vena Cava, Guidance (ICD-10-PCS; 2023-03-05)
PROC: 30233N1 Transfusion of Nonautologous Red Blood Cells into Peripheral Vein, Percutaneous Approach (ICD-10-PCS; 2023-03-09)
PROC: 4A033R1 Measurement of Arterial Saturation, Peripheral, Percutaneous Approach (ICD-10-PCS; 2023-03-09)
PROC: 3E033XZ Introduction of Vasopressor into Peripheral Vein, Percutaneous Approach (ICD-10-PCS; 2023-03-09)
PROC: 0DH67UZ Insertion of Feeding Device into Stomach, Via Natural or Artificial Opening (ICD-10-PCS; 2023-03-09)
PROC: 5A1945Z Respiratory Ventilation, 24-96 Consecutive Hours (ICD-10-PCS; 2023-03-09)
PROC: 0BH17EZ Insertion of Endotracheal Airway into Trachea, Via Natural or Artificial Opening (ICD-10-PCS; 2023-03-09)
PROC: 02HV33Z Insertion of Infusion Device into Superior Vena Cava, Percutaneous Approach (ICD-10-PCS; 2023-03-10)
PROC: 0DJ08ZZ Inspection of Upper Intestinal Tract, Via Natural or Artificial Opening Endoscopic (ICD-10-PCS; 2023-03-11)
DX: T80.211A Bloodstream infection due to central venous catheter, initial encounter (principal); A41.01 Sepsis due to Methicillin susceptible Staphylococcus aureus; J69.0 Pneumonitis due to inhalation of food and vomit; K22.6 Gastro-esophageal laceration-hemorrhage syndrome; N18.6 End stage renal disease; J96.01 Acute respiratory failure with hypoxia; E87.1 Hypo-osmolality and hyponatremia; I82.C11 Acute embolism and thrombosis of right internal jugular vein; I12.0 Hypertensive chronic kidney disease with stage 5 chronic kidney disease or end stage renal disease; E87.20 Acidosis, unspecified; R57.9 Shock, unspecified; Z68.43 Body mass index [BMI] 50.0-59.9, adult; K52.9 Noninfective gastroenteritis and colitis, unspecified; D50.9 Iron deficiency anemia, unspecified; E83.39 Other disorders of phosphorus metabolism; E03.9 Hypothyroidism, unspecified; K20.90 Esophagitis, unspecified without bleeding; K29.70 Gastritis, unspecified, without bleeding; K29.80 Duodenitis without bleeding; M10.9 Gout, unspecified; E11.22 Type 2 diabetes mellitus with diabetic chronic kidney disease; Z20.822 Contact with and (suspected) exposure to COVID-19; F17.210 Nicotine dependence, cigarettes, uncomplicated; E87.70 Fluid overload, unspecified; E87.6 Hypokalemia; E88.09 Other disorders of plasma-protein metabolism, not elsewhere classified; E87.5 Hyperkalemia; E66.01 Morbid (severe) obesity due to excess calories; D63.1 Anemia in chronic kidney disease; Z99.2 Dependence on renal dialysis; Z79.4 Long term (current) use of insulin; Z79.2 Long term (current) use of antibiotics; Z88.8 Allergy status to other drugs, medicaments and biological substances; Z79.899 Other long term (current) drug therapy; Z79.01 Long term (current) use of anticoagulants; Z79.891 Long term (current) use of opiate analgesic
CPT/HCPCS: 0241U; 31500; 36415; 36430; 36556; 36600; 71045; 77001; 80053; 80069; 80202; 81001; 82272; 82330; 82533; 82728; 82803; 82947; 83540; 83550; 83605; 83735; 84100; 84295; 84443; 84484; 84550; 84702; 85014; 85018; 85025; 85520; 85610; 85651; 85730; 86140; 86141; 86850; 86900; 86901; 86923; 87040; 87070; 87077; 87147; 87186; 87205; 93005; 93010; 93306; 93312; 93325; 93971; 94002; 94003; 94640; 94760; 96361; 96365; 96375; 97110; 97112; 97116; 97162; 97167; 97530; 97535; 99285-25; A9270; C1750; C1751; C1752; C9113; J0171; J0360; J0690; J0692; J0881; J1100; J1170; J1265; J1430; J1644; J1940; J2250; J2405; J2543; J2700; J2704; J2795; J3010; J3370; J3480; J7030; J7040; J7050; J7060; P9016; P9046; P9047; U0002

== ENCOUNTER 2023-04-01 09:25 | Day surgery (SDC) | payer MEDICARE, OTHER ==
[~2023-04-01 09:25] MED LIST changes: +ALLO100 PO; +AURYXIA210 MG PO; +CALCIUM ACETAT667 MG PO; +CEFD300 PO; +Calcium Acetat667 MG PO; +Cyclobenzaprine5 MG PO; +ELIQUIS5 M2 PO; +LOSA50 PO; +MIDO5 PO; +OXAYDO5 M1 PO; +PANT40 PO; +SUCRALFATE PO; +THERA-D2000 UNIT PO; +VISBIOME 112.51 EACH PO
[2023-04-01 10:04] VITALS: BP 164/67
[2023-04-01 14:20] VITALS: BP 173/92
[2023-04-01 14:36] VITALS: BP 186/76
--- NOTE | 2023-04-01 15:45 | NUR ---
PT ARRIVED TO UNIT VIA WC. PT A/O X4, STANDBY ASSIST TO BED. PT HERE FOR BLOOD TRANSFUSION AND THEN WILL DISCHARGE BACK TO [facility] SAME DAY. PT DENIES ANY CONCERNS AT THIS TIME. PT ON 1000 FR. ICE CHIPS PROVIDED PER HER REQUEST.
[2023-04-01 15:47] VITALS: BP 157/86
[2023-04-01 16:33] VITALS: BP 177/77
[2023-04-01] MEDS ORDERED: METO50ER PO (16:42)
[2023-04-01] MEDS ORDERED: BUME1 PO (16:44)
[2023-04-01 17:00] VITALS: BP 184/92
--- NOTE | 2023-04-01 17:36 | NUR ---
DISCHARGE SUMMARY: PT COMPLETED ONE UNIT OF PRBC'S. PT BLOOD PRESSURE WAS ELEVATED. PT DENIED CP, SOB, LUNGS WERE CLEAR THROUGHOUT PROCEDURE. PT REPORTS "MY BLOOD PRESSURE IS ALWAYS AIME." PT HAD NOADVERSE REACTIONS TO BLOOD PRODUCT. PT DISCHARGED BACK TO [facility]. PT ESCORTED TO RIDE VIA C[place]AY TRANSIT BY WHEELCHAIR. BELONGINGS SENT WITH PT.
== END 2023-04-01 17:20 | disposition home or self-care (01) ==
LOC: TRN 09:25 → MEDS 17:20 → TRN 17:20 → MEDS 17:20 → EDSTATUS 04-09 13:34
DX: D64.9 Anemia, unspecified (principal); N18.6 End stage renal disease
CPT/HCPCS: 36415; 36430; 86850; 86900; 86901; 86923; P9016

== ENCOUNTER 2023-08-11 08:01 | Day surgery (SDC) | payer MEDICARE, OTHER ==
[2023-08-11] VITALS (7 sets, daily range): BP systolic 141–171; BP diastolic 77–93
[~2023-08-11] VITALS: Ht 152.4 cm; Wt 97.3 kg
[~2023-08-11 08:01] MED LIST changes: +BUME1 PO
[2023-08-11] MEDS ORDERED: SEVEC800 PO (08:22)
[2023-08-11] MEDS ORDERED: PREG75 PO (08:26)
[2023-08-11] MEDS ORDERED: MIDO5 PO (08:26)
[2023-08-11] MEDS ORDERED: ZOLP5 PO (08:27)
[2023-08-11] MEDS ORDERED: Cyclobenzaprine5 MG PO (08:27)
[2023-08-11] MEDS ORDERED: LOSA50 PO (08:28)
[2023-08-11] MEDS ORDERED: LOKELMA10 GM PO (08:29)
[2023-08-11] MEDS ORDERED: ALUMINUM H320 MG/5 M PO (08:29)
--- NOTE | 2023-08-11 10:35 | NUR ---
ASSUMED CARE OF PT POST PROCEDURE. PT IS DROWSY, BUT CONVERSING APPROPRIATELY; DENIES PAIN POST PROCEDURE. MONITOR SR 70'S, B/P 161/82, SPO2 98% RA, AFEBRILE. L CHEST-PERMCATH EXCHANGE: NO SWELLING/HEMATOMA, BIOPATCH, GAUZE AND TEGADERM DRSG INTACT. PT IS SCHEDULED FOR DIALYSIS TOMORROW.
[2023-08-11] MEDS ORDERED: CEPH500 PO (11:01)
--- NOTE | 2023-08-11 12:20 | NUR ---
PT DRESSED SELF WITHOUT PROBLEM, IV REMOVED-CANNULA INTACT.
--- NOTE | 2023-08-11 12:44 | NUR ---
PT RECEIVED DISCHARGE INSTRUCTIONS, MED LIST AND AFTER CARE INSTRUCTIONS; VERBALIZED GOOD UNDERSTANDING. PT LEFT FACILITY VIA W/C, CONDITION STABLE.
== END 2023-08-11 15:11 | disposition home or self-care (01) ==
LOC: MHTC 08:01
DX: Z45.2 Encounter for adjustment and management of vascular access device (principal); N18.6 End stage renal disease; E11.22 Type 2 diabetes mellitus with diabetic chronic kidney disease; I12.0 Hypertensive chronic kidney disease with stage 5 chronic kidney disease or end stage renal disease; N25.81 Secondary hyperparathyroidism of renal origin; E03.9 Hypothyroidism, unspecified; F17.200 Nicotine dependence, unspecified, uncomplicated
CPT/HCPCS: 36581; 77001; 99152; 99153; C1750; C1769; J0690; J1644; J2250; J3010; J7040; J7050

== ENCOUNTER 2023-08-12 10:55 | Emergency (ER) | payer MEDICARE, OTHER ==
[~2023-08-12] VITALS: Ht 152.4 cm; Wt 97.1 kg
[2023-08-12] VITALS (13 sets, daily range): BP systolic 152–184; BP diastolic 67–105
[~2023-08-12 10:55] MED LIST changes: +ALUMINUM H320 MG/5 M PO; +CEPH500 PO; +PREG75 PO; +SEVEC800 PO; +ZOLP5 PO
[2023-08-12 14:14] LABS: BASOPHILS ABSOLUTE AUTO 0.14 K/mm3 (0.00-0.23); BASOPHILS PERCENT AUTO 1 % (0-2); EOSINOPHILS ABSOLUTE AUTO 0.34 K/mm3 (0.00-0.68); EOSINOPHILS PERCENT AUTO 3 % (0-6); Hematocrit 36.9 % (33.0-51.0); Hemoglobin 11.8 g/dL (11.5-16.0); IMMATURE GRAN ABSOLUTE AUTO 0.02 K/mm3 (0.00-0.10); IMMATURE GRAN PERCENT AUTO 0 % (0-1); LYMPHOCYTES ABSOLUTE AUTO 2.82 K/mm3 (0.84-5.20); LYMPHOCYTES PERCENT AUTO 28 % (21-46); MONOCYTES ABSOLUTE AUTO 0.75 K/mm3 (0.16-1.47); MONOCYTES PERCENT AUTO 7 % (4-13); Mean Corpuscular HGB 29.8 pg (26.0-34.0); Mean Corpuscular Volume 93 fL (80-100); Mean Platelet Volume 11.9 fL (9.1-12.4); NEUTROPHILS ABSOLUTE AUTO 6.05 K/mm3 (1.96-9.15); NEUTROPHILS PERCENT AUTO 60 % (41-73); Platelet Count 199 K/mm3 (150-400); RDW Coefficient Variation 13.6 % (11.7-14.2); RDW Standard Deviation 46.5 fL (35.1-46.3); Red Blood Cell Count 3.96 M/mm3 (3.80-5.20); White Blood Cell Count 10.12 K/mm3 (4.00-11.30)
[2023-08-12 14:54] LABS: Magnesium, Blood 2.4 mg/dL (1.6-2.4); Phosphorus, Blood 5.9 mg/dL (2.5-4.9)
[2023-08-12 14:58] LABS: Albumin, Blood 4.1 g/dL (3.4-5.0); Albumin/Globulin Ratio 1.2 (0.8-1.8); Bilirubin, Total 0.3 mg/dL (0.1-1.0); Bun/Creatinine Ratio 9.8 (12.0-20.0); Calcium, Blood 9.8 mg/dL (8.5-10.1); Creatinine, Blood 9.15 mg/dL (0.40-1.00); Globulin, Blood 3.5 g/dL (2.2-4.0); Total Protein, Blood 7.6 g/dL (6.4-8.2)
--- NOTE | 2023-08-12 18:32 | NUR ---
1825 PATIENT TO THE RECOVERY ROOM IN THE [facility] AND IS S/P PERMA CATH PLACEMENT TO THE LEFT IJ/CHEST WALL. DRESSING CDI. PATIENT IS AWAKE IN A RECLINER, PLACED ON THE MONITOR AND DRINKING JUICE. CALLED [employer] FOR DRIVE HOME. NO BLEEDING, NO HEMATOMA. NO PAIN NOTED FROM THE PATIENT. CALL LIGHT IN REACH.
--- NOTE | 2023-08-12 19:03 | NUR ---
PATIENT PIV REMOVED FROM [facility] RIGHT UPPER ARM AND CLOT DOT PLACED. CATH TIP INTACT. PATINET UP OFF THE MONITOR AND DRESSED. TO THE RESTROOM. GAIT STEADY. NO PAIN NOTED. DISCHARGE INSTRUCTIONS REVIEWED AND WILL ATTEND DIALYSIS IN THE A.M. AT [facility].
== END 2023-08-12 17:11 | disposition home or self-care (01) ==
LOC: ER 10:55
PROVIDERS: Student in an Organized Health Care Education/Training Program
DX: T82.41XA Breakdown (mechanical) of vascular dialysis catheter, initial encounter (principal); N18.6 End stage renal disease; Z79.899 Other long term (current) drug therapy; E11.22 Type 2 diabetes mellitus with diabetic chronic kidney disease; I12.0 Hypertensive chronic kidney disease with stage 5 chronic kidney disease or end stage renal disease; E03.9 Hypothyroidism, unspecified; F17.210 Nicotine dependence, cigarettes, uncomplicated
CPT/HCPCS: 71046; 76937; 80053; 83735; 84100; 85025; 96374; 99152; 99153; 99285-25; A9270; C1750; C1769; C1894; J1644; J2250; J2997; J3010; J7040; J7050

== ENCOUNTER 2024-06-06 10:12 | Day surgery (SDC) | payer MEDICARE, OTHER ==
[~2024-06-06] VITALS: Ht 152.4 cm; Wt 84.5 kg
[~2024-06-06 10:12] MED LIST changes: +BUPR75 PO; +DOCU100 PO; +TRULICITY0.75 MG/01 SQ
[2024-06-06] MEDS ORDERED: VITAMIN D3 PO (10:49)
[2024-06-06] MEDS ORDERED: PROM12.5S PR (10:53)
[2024-06-06] MEDS ORDERED: ONDA4ODT MM (10:54)
[2024-06-06 10:56] VITALS: BP 153/94
[2024-06-06] MEDS ORDERED: Ondansetron HCl 2 MG / ML 2ML Vial ONE ×3 (13:14→14:21)
[2024-06-06] MEDS ORDERED: Ondansetron HCl 2 MG / ML 2ML Vial IV ONE (13:25)
[2024-06-06] MEDS ORDERED: NS 250 ML IV ONE (14:17)
[2024-06-06] MEDS ORDERED: Heparin Sodium 1000 Units/ML 10ML MDV ONE (14:17)
[2024-06-06] MEDS ORDERED: FentaNYL Citrate 50 MCG/ML 2 ML Injection ONE ×2 (14:22→15:13)
[2024-06-06] MEDS ORDERED: NS 500 ML IV ONE (14:22)
[2024-06-06] MEDS ORDERED: Midazolam HCl 1MG / ML 2ML Vial ONE ×2 (14:22→15:12)
--- NOTE | 2024-06-06 15:44 | NUR ---
PT BACK TO RECOVERY ROOM.
== END 2024-06-06 16:30 | disposition home or self-care (01) ==
LOC: MHTC 10:12
DX: T82.9XXA Unspecified complication of cardiac and vascular prosthetic device, implant and graft, initial encounter (principal); I12.0 Hypertensive chronic kidney disease with stage 5 chronic kidney disease or end stage renal disease; E11.22 Type 2 diabetes mellitus with diabetic chronic kidney disease; N18.6 End stage renal disease; D63.1 Anemia in chronic kidney disease; Z99.2 Dependence on renal dialysis; F17.290 Nicotine dependence, other tobacco product, uncomplicated; Z88.5 Allergy status to narcotic agent; Z88.8 Allergy status to other drugs, medicaments and biological substances; Z79.01 Long term (current) use of anticoagulants; Z79.84 Long term (current) use of oral hypoglycemic drugs; Z79.899 Other long term (current) drug therapy
CPT/HCPCS: 99152; 99153; C1750; C1769; J1644; J2250; J2405; J3010; J7040; J7050

== ENCOUNTER 2024-06-21 13:29 | Emergency (ER) | payer MEDICARE, OTHER ==
[~2024-06-21] VITALS: Ht 157.5 cm; Wt 81.3 kg
[~2024-06-21 13:29] MED LIST changes: +ONDA4ODT MM; +PROM12.5S PR; +VITAMIN D3 PO
[2024-06-21 14:11] LABS: BASOPHILS ABSOLUTE AUTO 0.07 K/mm3 (0.00-0.23); BASOPHILS PERCENT AUTO 1 % (0-2); EOSINOPHILS ABSOLUTE AUTO 0.06 K/mm3 (0.00-0.68); EOSINOPHILS PERCENT AUTO 1 % (0-6); Hematocrit 30.5 % (33.0-51.0); Hemoglobin 10.2 g/dL (11.5-16.0); IMMATURE GRAN ABSOLUTE AUTO 0.05 K/mm3 (0.00-0.10); IMMATURE GRAN PERCENT AUTO 1 % (0-1); LYMPHOCYTES ABSOLUTE AUTO 1.92 K/mm3 (0.84-5.20); LYMPHOCYTES PERCENT AUTO 22 % (21-46); MONOCYTES ABSOLUTE AUTO 0.46 K/mm3 (0.16-1.47); MONOCYTES PERCENT AUTO 5 % (4-13); Mean Corpuscular HGB 30.8 pg (26.0-34.0); Mean Corpuscular HGB Conc 33.4 g/dL (31.5-36.5); Mean Corpuscular Volume 92 fL (80-100); Mean Platelet Volume 11.3 fL (9.1-12.4); NEUTROPHILS ABSOLUTE AUTO 6.12 K/mm3 (1.96-9.15); NEUTROPHILS PERCENT AUTO 71 % (41-73); Platelet Count 230 K/mm3 (150-400); RDW Coefficient Variation 12.4 % (11.7-14.2); RDW Standard Deviation 42.1 fL (35.1-46.3); Red Blood Cell Count 3.31 M/mm3 (3.80-5.20); White Blood Cell Count 8.68 K/mm3 (4.00-11.30)
[2024-06-21 14:26] LABS: Albumin, Blood 3.4 g/dL (3.4-5.0); Albumin/Globulin Ratio 0.7 (0.8-1.8); Bilirubin, Total 0.6 mg/dL (0.1-1.0); Bun/Creatinine Ratio 5.4 (12.0-20.0); Calcium, Blood 9.7 mg/dL (8.5-10.1); Creatinine, Blood 5.03 mg/dL (0.40-1.00); Globulin, Blood 4.8 g/dL (2.2-4.0); Potassium, Blood 3.6 mmol/L (3.5-5.5); Total Protein, Blood 8.2 g/dL (6.4-8.2)
[2024-06-21 17:21] VITALS: BP 187/94
== END 2024-06-21 17:22 | disposition home or self-care (01) ==
LOC: ER 13:29
PROVIDERS: Physician Assistant
DX: R07.9 Chest pain, unspecified (principal); E11.22 Type 2 diabetes mellitus with diabetic chronic kidney disease; I12.9 Hypertensive chronic kidney disease with stage 1 through stage 4 chronic kidney disease, or unspecified chronic kidney disease; E03.9 Hypothyroidism, unspecified; N18.6 End stage renal disease; F17.200 Nicotine dependence, unspecified, uncomplicated; Z95.9 Presence of cardiac and vascular implant and graft, unspecified; Z79.899 Other long term (current) drug therapy; Z88.8 Allergy status to other drugs, medicaments and biological substances
CPT/HCPCS: 36415; 71046; 80053; 83690; 84484; 85025

== ENCOUNTER 2024-07-06 07:23 | Day surgery (SDC) | payer MEDICARE, OTHER ==
[~2024-07-06] VITALS: Ht 157.5 cm; Wt 81.3 kg
[2024-07-06 07:40] VITALS: BP 201/104
[2024-07-06] MEDS ORDERED: Midazolam HCl 1MG / ML 2ML Vial ONE (07:44)
[2024-07-06] MEDS ORDERED: FentaNYL Citrate 50 MCG/ML 2 ML Injection ONE (07:44)
[2024-07-06] MEDS ORDERED: NS 1,000 ML IV ONE (07:44)
[2024-07-06] MEDS ORDERED: PROM25 PO (07:45)
[2024-07-06] MEDS ORDERED: NS 500 ML IV ONE (07:48)
[2024-07-06] MEDS ORDERED: Heparin Sodium 1000 Units/ML 10ML MDV ONE (07:48)
[2024-07-06 07:50] VITALS: BP 201/104
[2024-07-06] MEDS ORDERED: Heparin Sodium 10,000 Units/ML 1ML MDV ONE (08:59)
[2024-07-06 09:21] VITALS: BP 142/99
--- NOTE | 2024-07-06 09:21 | NUR ---
PT BACK TO RECOVERY ROOM IN RECLINER. PT ALERT AND ORIENTED. GIVEN BREAKFAST.
[2024-07-06 09:30] VITALS: BP 106/92
--- NOTE | 2024-07-06 09:40 | NUR ---
PT ATE BREAKFAST, HAS DIALYSIS TODAY.
--- NOTE | 2024-07-06 09:58 | NUR ---
PT DRESSED, IV D/C CATHETER INTACT. PT VERBALIZE D/C INSTRUCTIONS. WAITING FOR RIDE.
--- NOTE | 2024-07-06 10:13 | NUR ---
PT WHEELED OUT OF DEPT. PT HAS BELONGINGS AND PERSONAL ITEMS.
== END 2024-07-06 11:04 | disposition home or self-care (01) ==
LOC: MHTC 07:23
DX: T82.41XA Breakdown (mechanical) of vascular dialysis catheter, initial encounter (principal); Y71.8 Miscellaneous cardiovascular devices associated with adverse incidents, not elsewhere classified; I12.0 Hypertensive chronic kidney disease with stage 5 chronic kidney disease or end stage renal disease; E11.22 Type 2 diabetes mellitus with diabetic chronic kidney disease; N18.6 End stage renal disease; D63.1 Anemia in chronic kidney disease; E03.9 Hypothyroidism, unspecified; N25.81 Secondary hyperparathyroidism of renal origin; G47.30 Sleep apnea, unspecified; F17.290 Nicotine dependence, other tobacco product, uncomplicated; Z88.5 Allergy status to narcotic agent; Z88.8 Allergy status to other drugs, medicaments and biological substances; Z79.01 Long term (current) use of anticoagulants; Z79.899 Other long term (current) drug therapy
CPT/HCPCS: 36581; 75827; 99152; C1750; C1769; J1644; J2250; J3010; J7030; J7040; Q9967

== ENCOUNTER 2024-11-25 00:05 | Emergency (ER) | payer OTHER ==
[~2024-11-25] VITALS: Ht 157.5 cm; Wt 76.2 kg
[~2024-11-25 00:05] MED LIST changes: +PROM25 PO
[2024-11-25 00:45] LABS: BASOPHILS ABSOLUTE AUTO 0.12 K/mm3 (0.00-0.23); BASOPHILS PERCENT AUTO 1 % (0-2); EOSINOPHILS ABSOLUTE AUTO 0.28 K/mm3 (0.00-0.68); EOSINOPHILS PERCENT AUTO 3 % (0-6); Hematocrit 33.4 % (33.0-51.0); Hemoglobin 11.2 g/dL (11.5-16.0); IMMATURE GRAN ABSOLUTE AUTO 0.03 K/mm3 (0.00-0.10); IMMATURE GRAN PERCENT AUTO 0 % (0-1); LYMPHOCYTES ABSOLUTE AUTO 2.29 K/mm3 (0.84-5.20); LYMPHOCYTES PERCENT AUTO 25 % (21-46); MONOCYTES PERCENT AUTO 7 % (4-13); Mean Corpuscular HGB 30.3 pg (26.0-34.0); Mean Corpuscular HGB Conc 33.5 g/dL (31.5-36.5); Mean Corpuscular Volume 90 fL (80-100); Mean Platelet Volume 11.4 fL (9.1-12.4); NEUTROPHILS ABSOLUTE AUTO 5.76 K/mm3 (1.96-9.15); NEUTROPHILS PERCENT AUTO 64 % (41-73); Platelet Count 223 K/mm3 (150-400); RDW Coefficient Variation 13.4 % (11.7-14.2); RDW Standard Deviation 44.2 fL (35.1-46.3); White Blood Cell Count 9.08 K/mm3 (4.00-11.30)
[2024-11-25 01:03] LABS: Albumin, Blood 3.8 g/dL (3.4-5.0); Bilirubin, Total 0.2 mg/dL (0.1-1.0); Bun/Creatinine Ratio 5.4 (12.0-20.0); Calcium, Blood 10.1 mg/dL (8.5-10.1); Creatinine, Blood 4.28 mg/dL (0.40-1.00); Globulin, Blood 3.9 g/dL (2.2-4.0); Total Protein, Blood 7.7 g/dL (6.4-8.2)
[2024-11-25] MEDS ORDERED: HYDROcodone 5-APAP 325 TAB PO ONE (01:55)
[2024-11-25] MEDS ORDERED: Ondansetron 4 MG SoluTab SL ONE (01:55)
[2024-11-25 02:02] LABS: Source, Urine Straight Cath
[2024-11-25 02:13] LABS: Bilirubin, Urine Neg (Neg); Blood, Urine 2+ (Neg); Glucose Qualitative, Urine Neg (Neg); Ketones, Urine Neg (Neg); Leukocyte Esterase, Urine Neg (Neg); Nitrite, Urine Neg (Neg); Protein, Urine 4+ (Neg); Urobilinogen, Urine NORM (Normal)
[2024-11-25 02:23] LABS: Amorphous Light (0-Heavy); Appearance, Urine Clear (Clear); Bacteria Few /hpf; Color, Urine Yellow (P-Yellow); Red Blood Cells, Urine 0-2 /hpf (0-2); Squamous Epithelial Cells Mod /hpf (Few); White Blood Cells, Urine 0-2 /hpf (0-5)
[2024-11-25 02:43] VITALS: BP 119/75
== END 2024-11-25 02:43 | disposition home or self-care (01) ==
LOC: ER 00:05
PROVIDERS: Emergency Medicine
DX: S06.0X0A Concussion without loss of consciousness, initial encounter (principal); S00.83XA Contusion of other part of head, initial encounter; S13.4XXA Sprain of ligaments of cervical spine, initial encounter; E11.22 Type 2 diabetes mellitus with diabetic chronic kidney disease; I12.0 Hypertensive chronic kidney disease with stage 5 chronic kidney disease or end stage renal disease; N18.6 End stage renal disease; Z99.2 Dependence on renal dialysis; F17.210 Nicotine dependence, cigarettes, uncomplicated; E78.5 Hyperlipidemia, unspecified; Z88.8 Allergy status to other drugs, medicaments and biological substances; Z79.1 Long term (current) use of non-steroidal anti-inflammatories (NSAID); Z79.01 Long term (current) use of anticoagulants; Z79.899 Other long term (current) drug therapy; Z79.85 Long-term (current) use of injectable non-insulin antidiabetic drugs; W18.30XA Fall on same level, unspecified, initial encounter
CPT/HCPCS: 51701; 70450; 72125; 80053; 81001; 84484; 85025; 93005; 93010; 99284-25; A9270

== ENCOUNTER → 2025-01-31 | Outpatient (CLI) | payer OTHER ==
[2025-01-31 13:16] LABS: Calcium, Blood 10.2 mg/dL (8.5-10.1); Potassium, Blood 4.3 mmol/L (3.5-5.5)
== END | disposition home or self-care (01) ==
LOC: LAB DAV 11:35
PROVIDERS: Internal Medicine Nephrology
DX: N18.6 End stage renal disease (principal)
CPT/HCPCS: 82310; 84132